=== PATIENT | female | born 1945 | race Caucasian/White ===

== ENCOUNTER → 2019-07-02 07:57 | Outpatient (BNVA) | payer MEDICARE, SELFPAY | PROVIDERS: Family Provider Electrodiagnostic Medicine; PCP Electrodiagnostic Medicine; Referring Provider Psychiatry & Neurology Neurology; Visit Provider Specialist | DX: R55 Syncope and collapse (principal); R25.1 Tremor, unspecified | CPT/HCPCS: 95816 ==

== ENCOUNTER → 2019-08-12 15:13 | Outpatient (BNVA) | payer MEDICARE, SELFPAY | PROVIDERS: Family Provider Electrodiagnostic Medicine; PCP Electrodiagnostic Medicine; Visit Provider Nurse Practitioner Family | DX: N30.80 Other cystitis without hematuria (principal) | CPT/HCPCS: 81001; 87077; 87086; 87186 ==

== ENCOUNTER 2019-12-02 13:27 | Outpatient (CLI) | payer MEDICARE, SELFPAY ==
--- NOTE | 2019-12-02 13:32 | USCV_ITS ---
Vania Price Age: 74 Gender: F : 1945 Exam Date: 12/02/2019 13:36 Ordering Phys: Luis Molina MD Technologist: Marcelo Ho [place]am [place] [facility] [place]ication: SYNCOPE AND COLLAPSE Risk Factors: Previous Vascular Surgery: Right Brachial BP: / Left Brachial BP: / Right Left Velocity (cm/s) Spectral Plaque Velocity (cm/s) Spectral Plaque Syst/Diast Broadening Syst/Diast Broadening 82.20/ 15.80 Prox CCA 88.60 / 17.00 112.80/15.40 Mid CCA 73.50 / 14.50 97.40/ 17.10 Distal CCA 88.80 / 19.40 / Prox ICA 57.30 / 18.70 106.50/26.40 Mid ICA 97.50 / 27.70 84.30/ 25.40 Distal ICA 136.20/ 45.00 115.40 ECA 118.50 0.94 ICA/CCA 1.33 Antegrade Vertebral Antegrade 67.00/ 10.20 cm/s 63.90/ 22.50 cm/s Tri Subclavian Tri 90.90 FINDINGS Comparison: none available. Diffuse, mild bilateral scattered calcified plaque and intimal thickening throughout the common carotid arteries and extending through the bifurcation. Tortuous arteries with mild stenosis. CONCLUSIONS Bilateral ICA stenosis less than 50%. Dr. Rosalina Carmichael DO (Electronically Signed) Final Date: 02 December 2019 16:20 S
== END 2019-12-02 13:28 | disposition home or self-care (01) ==
LOC: RAD 13:28
PROVIDERS: Family Provider Electrodiagnostic Medicine; PCP Electrodiagnostic Medicine; Visit Provider Psychiatry & Neurology Neurology
DX: R55 Syncope and collapse (principal); I65.23 Occlusion and stenosis of bilateral carotid arteries
CPT/HCPCS: 93880

== ENCOUNTER 2020-03-06 09:01 | Outpatient (CLI) | payer MEDICARE, SELFPAY ==
--- NOTE | 2020-03-06 09:23 | MR_ITS ---
WS: [id number] MRI LEFT FOOT without CONTRAST. COMPARISON: None Multiplanar, multisequence imaging is performed without contrast. Marker is placed over the dorsal surface of the foot at the level of the second metatarsophalangeal j oint. There is no marrow edema or fracture. Very minimal soft tissue thickening between the second an d third and also the third and fourth metatarsal heads. This is predominantly low signal on the T2 wi th fat saturation sequences. The largest between the second and third metatarsal heads is 3.5 mm. Charlene picious but not diagnostic for Ramesh's neuroma. There is an ovoid fluid collection in the soft tissues along the plantar surface of the foot measurin g 10 mm. This is at the level of the mid tarsal bones and just posterior to the flexor digitorum long us tendon. Suspect is probably a small ganglion. The Achilles tendon is normal. No additional signal abnormalities within the tendons. MR/MR foot LT wo con* [id number] IMPRESSION: 1. Small intermetatarsal space nodules between the second and third and third and fourth metatarsals. Suspicious but not diagnostic for Ramesh's neuromas. No inflammatory changes. 2. Ovoid cystic mass along the plantar surface of the foot just posterior and inseparable from the flexor digitorum longus tendon at the level of the mid tar sals. Favor small ganglion versus benign cyst.
== END 2020-03-06 09:02 | disposition home or self-care (01) ==
PROVIDERS: Family Provider Electrodiagnostic Medicine; PCP Electrodiagnostic Medicine; Visit Provider Podiatrist Foot & Ankle Surgery
DX: M79.675 Pain in left toe(s) (principal)
CPT/HCPCS: 73718

== ENCOUNTER 2020-03-08 07:03 | Emergency (ER) | payer MEDICARE, SELFPAY ==
[2020-03-08 07:06] VITALS: BP 100/54; PULSE 70; RESP 14; TEMP 36.6; O2SAT 95; BMI 30.9
--- NOTE | 2020-03-08 07:25 | W.ED.GENADLT ---
Documented by User: Daisy Maciel MD 03/08/20 16:41 HPI - General Adult History of Present Illness: HPI narrative: This patient is a 74-year-old female who presents today with complaints of tremors which caused her to fall. She tells me that she started having these tremors about 2 years ago. They were initially infrequent and controllable but in the past several weeks they have become significantly worse. In the past several days it is gotten to the point where she really cannot function because of the tremors and has fallen several times. She is only able to ambulate with significant help. She has been seeing her primary care physician, Dr. Chris and has also seen Dr. Molina, a neurologist in [place] affiliated with [facility]. She has only seen Dr. Molina once and then was not able to have a follow-up due to the COVID situation. She did have a phone visit a few days ago when he started her on propranolol which she does not feel like has helped at all. Previously she has been on carbidopa levodopa for some time. She says that Dr. Molina told her she did not have Parkinson's. She notes that her father did have Parkinson's. She has never had a stroke. 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 She has had a CT of her head, and MRI, and EEG. She feels like she is gotten to the point where she can no longer live at home because of her frequent falls and need for constant assistance. Onset (ago): year(s) (2 years, has become uncontrollable in the past few days.) Associated symptoms: Reports other (Some memory loss); Deny chest pain, dyspnea, headache(s), malaise, nausea, rash or vomiting Review of Systems General: Reports: 10 or more systems reviewed and unremarkable except in HPI and below Const: Denies: fever(s), chills, fatigue or malaise Eyes: Denies: change in vision ENMT: Denies: odynophagia Card: Denies: chest pain or swelling of feet/ankles Resp: Denies: dyspnea, productive cough or non-productive cough GI: Denies: abdominal pain, nausea or vomiting : Reports: dysuria (Chronic UTIs, currently on antibiotic); Denies: flank pain or difficulty voiding Musc: Denies: neck pain or back pain Skin/Breast: Denies: rash Neuro: Reports: numbness in extremities (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), lack of coordination, difficulty walking, frequent falls and involuntary movements; Denies: headache(s) or weakness in extremities Jp/Lymph: Denies: easy bruising or easy bleeding PFSH ED PFSH: Medical History Acid reflux Cystitis cystica High cholesterol Hypertension Neuropathy Restless leg syndrome Surgical History History of carpal tunnel surgery History of hysterectomy History of knee surgery Family History Sister Cancer Mother Diabetes Stroke Other Hypertension Social History Smoking and tobacco status: former smoker Alcohol intake: current Alcohol intake frequency: holidays/special occasions only Alcohol type: wine Household members: spouse Marital status: Current occupational status: retired Physical Exam Const: COMMON NORMALS: no acute distress, patient oriented x3, no limitations and alert GENERAL APPEARANCE: cooperative and comfortable HENMT: HEAD & SCALP: normal to inspection FACE & SINUS: normal facial exam Eye: GENERAL EYE: appearance normal, both eyes and all related structures Neck/C-Spine: COMMON NORMALS: supple, no meningeal signs and no JVD Chest: COMMONS NORMALS: normal inspection of the chest Resp: COMMON NORMALS: normal respiratory effort, No use of accessory muscles and clear to auscultation bilaterally AUSCULTATION: clear to auscultation bilaterally Cardio: COMMON NORMALS: no JVD, regular rate and regular rhythm RATE: regular rate RHYTHM: regular rhythm HEART SOUNDS: Murmur heart sound present GI: COMMON NORMALS: Normal to inspection, nondistended, normoactive bowel sounds present, Soft to palpation and non-tender INSPECTION: Yes normal to inspection AUSCULTATION: Yes normoactive bowel sounds PALPATION: Yes Soft to palpation Back/Pelvis: COMMON NORMALS: thoracic and lumbar spine normal to inspection Extremity: COMMON NORMALS: normal to inspection Neuro: COMMON NORMALS: patient oriented x3, moves all extremities, no focal motor deficits and no sensory deficits noted SENSORIUM/ORIENTATION: Yes alert MENINGEAL SIGNS: Yes no meningeal signs COORDINATION/BALANCE: other (I did not test her ambulation. Her sister showed me a video of her walking at home demonstrating the tremor throughout her whole body.) GAIT: Yes Assistive device used and Yes Other gait observations present (Intermittent chorea type movements of her trunk mainly which she is unable to control and last for less than about a minute each time.) COORDINATION: other (I did not test her ambulation. Her sister showed me a video of her walking at home demonstrating the tremor throughout her whole body.) Psych: COMMON NORMALS: mental status grossly normal, cooperative and normal affect Skin: COMMON NORMALS: no rashes or lesions noted and turgor normal GENERAL SKIN EXAM: no rashes or lesions noted and turgor normal Course ED course: The patient presents with tremors and frequent falls much worse in the past few days than typical. She is noted today to have renal failure - the cause of that is not clear. She is on a lot of medication and this could be a cause. Her work up for the tremors has been unrevealing and there has been a question of whether they are psychiatric in nature. Her neurologist is at [facility] and she would prefer to be admitted there so that she can be seen by him. She needs admission for management of her renal issues and her tremors are enough of an issue that she is not able to safely ambulate at home. Reevaluation(s): Reevaluation #1: This patient has been accepted to [facility] by Dr. Hedrick Vital Signs: Vital signs: Vital Signs Temperature 98 F 03/08/20 07:06 Pulse Rate 70 03/08/20 13:21 Respiratory Rate 14 03/08/20 13:21 Blood Pressure 142/85 03/08/20 13:21 Pulse Oximetry 97 03/08/20 13:21 [facility] - General Adult Lab Data: Labs: Lab Results 03/08/20 03/08/20 03/08/20 Range/Units 07:35 07:35 07:41 WBC (4.0-10.0) 10^3/ uL RBC (4.1-5.3) 10^6/u L Hgb (11.5-15.3) g/dL Hct (37.0-47.0) % MCV (81-99) fL MCH (28.0-34.0) pg MCHC (30.0-36.0) g/dL RDW (12.1-15.1) % Plt Count (130-400) 10^3/c mm MPV (7.4-10.4) fL Neut % (Auto) % Lymph % (Auto) % [place] % (Auto) % Eos % (Auto) % Baso % (Auto) % Neut # (Auto) (1.8-7.7) 10^3/u L Lymph # (Auto) (0.8-4.8) 10^3/u L [place] # (Auto) (0.2-0.9) 10^3/u L Eos # (Auto) (0.0-0.8) 10^3/u L Baso # (Auto) (0.0-0.1) 10^3/u L Nucleated RBC % (a uto) % Nucleated RBCs # /100WBC Sodium 141 (136-145) mmol/L Potassium 6.0 H (3.5-5.1) mmol/L Chloride 107 (98-107) mmol/L Carbon Dioxide 21 L (22-29) mmol/L Anion Gap 19.0 (5-19) BUN 72 H (8-23) mg/dL Creatinine 3.3 H (0.5-0.9) mg/dL GFR Calculation Not Reportable Glucose 100 (65-115) mg/dL Calculated Osmolal ity 292 (285-295) mOsm/k g Calcium 9.6 (8.5-10.5) mg/dL Total Bilirubin 0.2 (0.15-1.2) mg/dL AST 16 (0-32) U/L ALT < 5 (0-33) U/L Alkaline Phosphata se 93 (35-105) IU/L Creatine Kinase 81 (26-192) U/L Total Protein 6.3 L (6.6-8.7) g/dL Albumin 4.4 (3.5-5.2) g/dL Globulin 1.9 (1.3-4.6) g/dL TSH 2.05 (0.27-4.20) uIU/ mL Urine Color Yellow (Yellow) Urine Appearance Clear (CLEAR) Urine pH 5 (5-7) Ur Specific Gravit y 1.015 (1.005-1.030) Urine Protein Neg (Negative) Urine Glucose (UA) Norm (Normal) Urine Ketones Negative (Negative) Urine Blood Neg (Negative) Urine Nitrate Negative (Negative) Urine Bilirubin Neg (Negative) Urine Urobilinogen Norm (Negative) mg/dL Ur Leukocyte Lidya ase Negative (Negative) 03/08/20 Range/Units 09:47 WBC 8.8 (4.0-10.0) 10^3/ uL RBC 3.33 L (4.1-5.3) 10^6/u L Hgb 9.3 L (11.5-15.3) g/dL Hct 31.1 L (37.0-47.0) % MCV 93.4 (81-99) fL MCH 27.9 L (28.0-34.0) pg MCHC 29.9 L (30.0-36.0) g/dL RDW 18.2 H (12.1-15.1) % Plt Count 136 (130-400) 10^3/c mm MPV 11.4 H (7.4-10.4) fL Neut % (Auto) 62.8 % Lymph % (Auto) 24.3 % [place] % (Auto) 7.2 % Eos % (Auto) 4.6 % Baso % (Auto) 0.6 % Neut # (Auto) 5.52 (1.8-7.7) 10^3/u L Lymph # (Auto) 2.1 (0.8-4.8) 10^3/u L [place] # (Auto) 0.6 (0.2-0.9) 10^3/u L Eos # (Auto) 0.4 (0.0-0.8) 10^3/u L Baso # (Auto) 0.1 (0.0-0.1) 10^3/u L Nucleated RBC % (a uto) 0 % Nucleated RBCs # 0.0 /100WBC Sodium (136-145) mmol/L Potassium (3.5-5.1) mmol/L Chloride (98-107) mmol/L Carbon Dioxide (22-29) mmol/L Anion Gap (5-19) BUN (8-23) mg/dL Creatinine (0.5-0.9) mg/dL GFR Calculation Glucose (65-115) mg/dL Calculated Osmolal ity (285-295) mOsm/k g Calcium (8.5-10.5) mg/dL Total Bilirubin (0.15-1.2) mg/dL AST (0-32) U/L ALT (0-33) U/L Alkaline Phosphata se (35-105) IU/L Creatine Kinase (26-192) U/L Total Protein (6.6-8.7) g/dL Albumin (3.5-5.2) g/dL Globulin (1.3-4.6) g/dL TSH (0.27-4.20) uIU/ mL Urine Color (Yellow) Urine Appearance (CLEAR) Urine pH (5-7) Ur Specific Gravit y (1.005-1.030) Urine Protein (Negative) Urine Glucose (UA) (Normal) Urine Ketones (Negative) Urine Blood (Negative) Urine Nitrate (Negative) Urine Bilirubin (Negative) Urine Urobilinogen (Negative) mg/dL Ur Leukocyte Lidya ase (Negative) Discharge Plan Discharge Prescriptions: No Action doxazosin 4 mg tablet 4 mg PO DAILY RF: 0 cefuroxime axetil 500 mg tablet 500 mg PO BID Qty: 14 RF: 2 amlodipine 10 mg tablet 10 mg PO DAILY RF: 0 latanoprost 0.005 % drops See Rx Instructions .ROUTE .COMPLEX RF: 0 hydralazine 50 mg tablet 50 mg PO TID RF: 0 furosemide 40 mg tablet 40 mg PO BID RF: 0 atorvastatin 40 mg tablet 40 mg PO DAILY RF: 0 esomeprazole magnesium 40 mg capsule,delayed release(DR/EC) 40 mg PO DAILY RF: 0 carbidopa-levodopa 25-100 mg tablet 1 tab PO TID RF: 0 pregabalin 75 mg capsule 75 mg PO TID RF: 0 timolol maleate 0.25 % gel forming solution See Rx Instructions .ROUTE .COMPLEX RF: 0 allopurinol 300 mg tablet 150 mg PO DAILY RF: 0 methenamine hippurate 1 gram tablet 1 gm PO BID Qty: 180 RF: 3 tramadol 50 mg tablet 50 mg PO Q4H PRN (Reason: pain) Qty: 42 RF: 0 Vitamin B-12 1,000 mcg Tablet Extended Release 1,000 mcg PO DAILY RF: 0 Aspirin Low Dose 81 mg Tablet,Delayed Release (Dr/Ec) 81 mg PO DAILY RF: 0 Tylenol Extra Strength 500 mg Tablet 500 mg PO Q6H PRN (Reason: Pain) RF: 0 vitamin N78-eyamd acid 1,000-400 mcg Lozenge 1 edvin SUBLINGUAL DAILY RF: 0 Discharge Date/Time: 03/08/20 13:22 Coding Level of Care Code ED Finished Garment Inspector for Chg Fwd Exam Comprehensive Documented by User: Tamie Brumfield 04/15/20 05:51 HPI - General Adult History of Present Illness: Associated symptoms: Deny chest pain, dyspnea, headache(s), malaise, nausea, rash or vomiting Review of Systems General: Reports: 10 or more systems reviewed and unremarkable except in HPI and below Const: Denies: fever(s), chills, fatigue or malaise Eyes: Denies: change in vision ENMT: Denies: odynophagia Card: Denies: chest pain or swelling of feet/ankles Resp: Denies: dyspnea, productive cough or non-productive cough GI: Denies: abdominal pain, nausea or vomiting : Reports: dysuria (Chronic UTIs, currently on antibiotic); Denies: flank pain or difficulty voiding Musc: Denies: neck pain or back pain Skin/Breast: Denies: rash Neuro: Reports: numbness in extremities (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), lack of coordination, difficulty walking, frequent falls and involuntary movements; Denies: headache(s) or weakness in extremities Jp/Lymph: Denies: easy bruising or easy bleeding PFSH ED PFSH: Medical History Acid reflux Cystitis cystica High cholesterol Hypertension Neuropathy Restless leg syndrome Surgical History History of carpal tunnel surgery History of hysterectomy History of knee surgery Family History Sister Cancer Mother Diabetes Stroke Other Hypertension Social History Smoking and tobacco status: former smoker Alcohol intake: current Alcohol intake frequency: holidays/special occasions only Alcohol type: wine Household members: spouse Marital status: Current occupational status: retired Course Vital Signs: Vital signs: Vital Signs Temperature 98 F 03/08/20 07:06 Pulse Rate 70 03/08/20 13:21 Respiratory Rate 14 03/08/20 13:21 Blood Pressure 142/85 03/08/20 13:21 Pulse Oximetry 97 03/08/20 13:21 [facility] - General Adult Lab Data: Labs: Lab Results 03/08/20 03/08/20 03/08/20 Range/Units 07:35 07:35 07:41 WBC (4.0-10.0) 10^3/ uL RBC (4.1-5.3) 10^6/u L Hgb (11.5-15.3) g/dL Hct (37.0-47.0) % MCV (81-99) fL MCH (28.0-34.0) pg MCHC (30.0-36.0) g/dL RDW (12.1-15.1) % Plt Count (130-400) 10^3/c mm MPV (7.4-10.4) fL Neut % (Auto) % Lymph % (Auto) % [place] % (Auto) % Eos % (Auto) % Baso % (Auto) % Neut # (Auto) (1.8-7.7) 10^3/u L Lymph # (Auto) (0.8-4.8) 10^3/u L [place] # (Auto) (0.2-0.9) 10^3/u L Eos # (Auto) (0.0-0.8) 10^3/u L Baso # (Auto) (0.0-0.1) 10^3/u L Nucleated RBC % (a uto) % Nucleated RBCs # /100WBC Sodium 141 (136-145) mmol/L Potassium 6.0 H (3.5-5.1) mmol/L Chloride 107 (98-107) mmol/L Carbon Dioxide 21 L (22-29) mmol/L Anion Gap 19.0 (5-19) BUN 72 H (8-23) mg/dL Creatinine 3.3 H (0.5-0.9) mg/dL GFR Calculation Not Reportable Glucose 100 (65-115) mg/dL Calculated Osmolal ity 292 (285-295) mOsm/k g Calcium 9.6 (8.5-10.5) mg/dL Total Bilirubin 0.2 (0.15-1.2) mg/dL AST 16 (0-32) U/L ALT < 5 (0-33) U/L Alkaline Phosphata se 93 (35-105) IU/L Creatine Kinase 81 (26-192) U/L Total Protein 6.3 L (6.6-8.7) g/dL Albumin 4.4 (3.5-5.2) g/dL Globulin 1.9 (1.3-4.6) g/dL TSH 2.05 (0.27-4.20) uIU/ mL Urine Color Yellow (Yellow) Urine Appearance Clear (CLEAR) Urine pH 5 (5-7) Ur Specific Gravit y 1.015 (1.005-1.030) Urine Protein Neg (Negative) Urine Glucose (UA) Norm (Normal) Urine Ketones Negative (Negative) Urine Blood Neg (Negative) Urine Nitrate Negative (Negative) Urine Bilirubin Neg (Negative) Urine Urobilinogen Norm (Negative) mg/dL Ur Leukocyte Lidya ase Negative (Negative) 03/08/20 Range/Units 09:47 WBC 8.8 (4.0-10.0) 10^3/ uL RBC 3.33 L (4.1-5.3) 10^6/u L Hgb 9.3 L (11.5-15.3) g/dL Hct 31.1 L (37.0-47.0) % MCV 93.4 (81-99) fL MCH 27.9 L (28.0-34.0) pg MCHC 29.9 L (30.0-36.0) g/dL RDW 18.2 H (12.1-15.1) % Plt Count 136 (130-400) 10^3/c mm MPV 11.4 H (7.4-10.4) fL Neut % (Auto) 62.8 % Lymph % (Auto) 24.3 % [place] % (Auto) 7.2 % Eos % (Auto) 4.6 % Baso % (Auto) 0.6 % Neut # (Auto) 5.52 (1.8-7.7) 10^3/u L Lymph # (Auto) 2.1 (0.8-4.8) 10^3/u L [place] # (Auto) 0.6 (0.2-0.9) 10^3/u L Eos # (Auto) 0.4 (0.0-0.8) 10^3/u L Baso # (Auto) 0.1 (0.0-0.1) 10^3/u L Nucleated RBC % (a uto) 0 % Nucleated RBCs # 0.0 /100WBC Sodium (136-145) mmol/L Potassium (3.5-5.1) mmol/L Chloride (98-107) mmol/L Carbon Dioxide (22-29) mmol/L Anion Gap (5-19) BUN (8-23) mg/dL Creatinine (0.5-0.9) mg/dL GFR Calculation Glucose (65-115) mg/dL Calculated Osmolal ity (285-295) mOsm/k g Calcium (8.5-10.5) mg/dL Total Bilirubin (0.15-1.2) mg/dL AST (0-32) U/L ALT (0-33) U/L Alkaline Phosphata se (35-105) IU/L Creatine Kinase (26-192) U/L Total Protein (6.6-8.7) g/dL Albumin (3.5-5.2) g/dL Globulin (1.3-4.6) g/dL TSH (0.27-4.20) uIU/ mL Urine Color (Yellow) Urine Appearance (CLEAR) Urine pH (5-7) Ur Specific Gravit y (1.005-1.030) Urine Protein (Negative) Urine Glucose (UA) (Normal) Urine Ketones (Negative) Urine Blood (Negative) Urine Nitrate (Negative) Urine Bilirubin (Negative) Urine Urobilinogen (Negative) mg/dL Ur Leukocyte Lidya ase (Negative) Discharge Plan Discharge Prescriptions: No Action doxazosin 4 mg tablet 4 mg PO DAILY RF: 0 cefuroxime axetil 500 mg tablet 500 mg PO BID Qty: 14 RF: 2 amlodipine 10 mg tablet 10 mg PO DAILY RF: 0 latanoprost 0.005 % drops See Rx Instructions .ROUTE .COMPLEX RF: 0 hydralazine 50 mg tablet 50 mg PO TID RF: 0 furosemide 40 mg tablet 40 mg PO BID RF: 0 atorvastatin 40 mg tablet 40 mg PO DAILY RF: 0 esomeprazole magnesium 40 mg capsule,delayed release(DR/EC) 40 mg PO DAILY RF: 0 carbidopa-levodopa 25-100 mg tablet 1 tab PO TID RF: 0 pregabalin 75 mg capsule 75 mg PO TID RF: 0 timolol maleate 0.25 % gel forming solution See Rx Instructions .ROUTE .COMPLEX RF: 0 allopurinol 300 mg tablet 150 mg PO DAILY RF: 0 methenamine hippurate 1 gram tablet 1 gm PO BID Qty: 180 RF: 3 tramadol 50 mg tablet 50 mg PO Q4H PRN (Reason: pain) Qty: 42 RF: 0 Vitamin B-12 1,000 mcg Tablet Extended Release 1,000 mcg PO DAILY RF: 0 Aspirin Low Dose 81 mg Tablet,Delayed Release (Dr/Ec) 81 mg PO DAILY RF: 0 Tylenol Extra Strength 500 mg Tablet 500 mg PO Q6H PRN (Reason: Pain) RF: 0 vitamin U65-caumw acid 1,000-400 mcg Lozenge 1 edvin SUBLINGUAL DAILY RF: 0 Discharge Date/Time: 03/08/20 13:22 Coding Level of Care Code ED Finished Garment Inspector for Shanika Fwd Exam Comprehensive
[2020-03-08 07:30] VITALS: BP 107/52; PULSE 58; RESP 14; O2SAT 91
[2020-03-08 08:15] LABS: Add Urine Microscopic? NO
[2020-03-08 08:29] LABS: Bilirubin Urine Neg (Negative); Blood Urine Neg (Negative); Glucose Urine UA Norm (Normal); Ketones Urine Negative (Negative); Leukocyte Esterase Urine Negative (Negative); Nitrate Urine Negative (Negative); Protein Urine Neg (Negative); Specific Gravity, Urine 1.015 (1.005-1.030); Urine Appearance Clear (CLEAR); Urine Color Yellow (Yellow); Urobilinogen Urine Norm (Negative); pH Urine 5 (5-7)
[2020-03-08 08:30] VITALS: BP 110/44; PULSE 54; RESP 14; O2SAT 94
[2020-03-08 08:34] LABS: Alanine Aminotransferase < 5 U/L (0-33); Albumin Level 4.4 g/dL (3.5-5.2); Alkaline Phosphatase 93 IU/L (35-105); Aspartate Amino Transferase 16 U/L (0-32); Blood Urea Nitrogen 72 mg/dL (8-23); Calcium 9.6 mg/dL (8.5-10.5); Carbon Dioxide 21 mmol/L (22-29); Chloride 107 mmol/L (98-107); Creatine Phosphokinase 81 U/L (26-192); Globulin 1.9 g/dL (1.3-4.6); Glucose 100 mg/dL (65-115); Osmolality Calculated 292 mOsm/kg (285-295); Sodium 141 mmol/L (136-145); Total Bilirubin 0.2 mg/dL (0.15-1.2); Total Protein 6.3 g/dL (6.6-8.7)
[2020-03-08] MEDS: sodium chloride 0.9% 1,000 ML 999 ML IV (08:54)
[2020-03-08 09:30] VITALS: BP 112/45; PULSE 56; RESP 14; O2SAT 92
[2020-03-08 10:01] LABS: Basophils # 0.1 10^3/uL (0.0-0.1); Basophils % 0.6 %; Eosinophils # 0.4 10^3/uL (0.0-0.8); Eosinophils % 4.6 %; Hematocrit 31.1 % (37.0-47.0); Hemoglobin 9.3 g/dL (11.5-15.3); Lymphocytes # 2.1 10^3/uL (0.8-4.8); Lymphocytes % 24.3 %; Mean Corpuscular HGB Conc 29.9 g/dL (30.0-36.0); Mean Corpuscular Hemoglobin 27.9 pg (28.0-34.0); Mean Corpuscular Volume 93.4 fL (81-99); Mean Platelet Volume 11.4 fL (7.4-10.4); Monocytes # 0.6 10^3/uL (0.2-0.9); Monocytes % 7.2 %; Neutrophils # 5.52 10^3/uL (1.8-7.7); Neutrophils % 62.8 %; Nucleated Red Blood Cells % 0 %; Platelet Count 136 10^3/cmm (130-400); Red Blood Count 3.33 10^6/uL (4.1-5.3); Red Cell Distribution Width 18.2 % (12.1-15.1); White Blood Count 8.8 10^3/uL (4.0-10.0)
[2020-03-08 10:30] VITALS: BP 104/49; PULSE 56; RESP 14; O2SAT 92
[2020-03-08 10:37] LABS: Thyroid Stimulating Hormone 2.05 uIU/mL (0.27-4.20)
--- NOTE | 2020-03-08 11:33 | ECG_ITS ---
[facility] Test Date: 2020-03-08 Pat Name: Vania Price Department: Room: Gender: Female Public Health Engineer: : 1945 Requested By: Daisy Joseph Order Number: [id number] Kinjal MD: Joyce Chauhan M.D. Measurements Intervals Wann Rate: 55 P: 60 OK: 224 QRS: -24 QRSD: 100 T: 66 QT: 438 QTc: 421 Interpretive Statements SINUS BRADYCARDIA WITH FIRST DEGREE AV BLOCK BORDERLINE LEFT AXIS DEVIATION [QRS AXIS < -20] LOW QRS VOLTAGE IN PRECORDIAL LEADS [QRS DEFLECTION < 1.0 mV IN CHEST LEADS] Compared to ECG 09/20/2018 18:23:32 Low QRS voltage now present Electronically Signed On 03-08-2020 15:17:48 CDT by Joyce Chauhan M.D. [email or web address]
[2020-03-08] MEDS: sodium chloride 0.45% 1,000 ML 125 ML IV (12:24)
[2020-03-08 13:21] VITALS: BP 142/85; PULSE 70; RESP 14; O2SAT 97
== END 2020-03-08 13:22 ==
LOC: ER 07:27
PROVIDERS: Emergency Provider Emergency Medicine; PCP Electrodiagnostic Medicine
DX: R53.1 Weakness (principal); Z79.82 Long term (current) use of aspirin; I10 Essential (primary) hypertension; Z87.891 Personal history of nicotine dependence
CPT/HCPCS: 12345; 80053; 81003; 82550; 84443; 85025; 93005; 96360; 96361; 99283; J7030

== ENCOUNTER → 2020-04-07 14:18 | Outpatient (BNVA) | payer MEDICARE, SELFPAY | PROVIDERS: PCP Electrodiagnostic Medicine; Visit Provider Urology | DX: N30.80 Other cystitis without hematuria (principal) | CPT/HCPCS: 81001 ==

== ENCOUNTER 2020-07-17 11:25 | Outpatient (RCR) | payer MEDICARE, SELFPAY | END 2020-07-26 23:59 | disposition home or self-care (01) | LOC: SPT 11:25 | PROVIDERS: PCP Electrodiagnostic Medicine; Referring Provider Electrodiagnostic Medicine; Visit Provider Electrodiagnostic Medicine | DX: R42 Dizziness and giddiness (principal) | CPT/HCPCS: 95992; 97162 ==

== ENCOUNTER → 2020-07-28 10:17 | Outpatient (BNVA) | payer MEDICARE, SELFPAY | PROVIDERS: PCP Electrodiagnostic Medicine; Visit Provider Urology | DX: N30.80 Other cystitis without hematuria (principal); M54.9 Dorsalgia, unspecified | CPT/HCPCS: 81003 ==

== ENCOUNTER 2020-08-24 10:00 | Outpatient (CLI) | payer MEDICARE, SELFPAY | END 2020-08-24 10:01 | disposition home or self-care (01) | LOC: RAD 02-22 11:50 | PROVIDERS: PCP Electrodiagnostic Medicine; Visit Provider Podiatrist Foot & Ankle Surgery | DX: G57.62 Lesion of plantar nerve, left lower limb (principal); M19.072 Primary osteoarthritis, left ankle and foot | CPT/HCPCS: 73630 ==

== ENCOUNTER 2020-09-25 11:19 | Outpatient (CLI) | payer MEDICARE, SELFPAY ==
[2020-09-25 11:58] LABS: Basophils # 0.1 10^3/uL (0.0-0.1); Basophils % 0.6 %; Eosinophils # 0.2 10^3/uL (0.0-0.8); Eosinophils % 1.8 %; Hemoglobin 12.2 g/dL (11.5-15.3); Lymphocytes # 3.3 10^3/uL (0.8-4.8); Lymphocytes % 36.5 %; Mean Corpuscular HGB Conc 30.5 g/dL (30.0-36.0); Mean Corpuscular Hemoglobin 27.2 pg (28.0-34.0); Mean Corpuscular Volume 89.1 fL (81-99); Mean Platelet Volume 10.5 fL (7.4-10.4); Monocytes # 0.3 10^3/uL (0.2-0.9); Monocytes % 3.8 %; Neutrophils # 5.18 10^3/uL (1.8-7.7); Neutrophils % 57.1 %; Nucleated Red Blood Cells % 0 %; Platelet Count 238 10^3/cmm (130-400); Red Blood Count 4.49 10^6/uL (4.1-5.3); Red Cell Distribution Width 18.6 % (12.1-15.1); White Blood Count 9.1 10^3/uL (4.0-10.0)
[2020-09-25 12:19] LABS: Anion Gap 16.2 (5-19); Blood Urea Nitrogen 20 mg/dL (8-23); Calcium 9.6 mg/dL (8.5-10.5); Carbon Dioxide 28 mmol/L (22-29); Chloride 100 mmol/L (98-107); Creatine Phosphokinase 63 U/L (26-192); Glucose 159 mg/dL (65-115); Osmolality Calculated 298 mOsm/kg (285-295); Potassium 3.2 mmol/L (3.5-5.1); Sodium 141 mmol/L (136-145)
[2020-09-25 12:40] LABS: Erythrocyte Sedimentation Rate 21 mm/hr (0-15)
[2020-09-28 12:18] LABS: COMPLEMENT COMPONENT C3C 162 mg/dL (83-193); COMPLEMENT COMPONENT C4C 36 mg/dL (15-57)
[2020-09-28 15:28] LABS: COMPLEMENT, TOTAL (CH50) >60 U/mL (31-60)
[2020-09-28 16:32] LABS: CENTROMERE B ANTIBODY <1.0 NEG AI (<1.0 NEG); JO-1 ANTIBODY <1.0 NEG AI (<1.0 NEG); RNP ANTIBODY <1.0 NEG AI (<1.0 NEG); SCL-70 ANTIBODY <1.0 NEG AI (<1.0 NEG); SJOGREN'S ANTIBODY (SS-A) <1.0 NEG AI (<1.0 NEG); SM ANTIBODY <1.0 NEG AI (<1.0 NEG); SS-B <1.0 NEG AI (<1.0 NEG)
[2020-09-29 11:12] LABS: ANA PATTERN Nuclear, Homogeneous; ANA SCREEN, IFA POSITIVE (NEGATIVE)
[2020-09-29 14:22] LABS: THYROID PEROXIDASE ANTIBODIES <1 IU/mL (<9)
[2020-09-29 19:07] LABS: HLA-B27 NEGATIVE (NEGATIVE)
[2020-10-03 00:18] LABS: DNA AB (DS) CRITHIDIA,IFA NEGATIVE (NEGATIVE)
== END 2020-09-25 11:20 | disposition home or self-care (01) ==
PROVIDERS: PCP Electrodiagnostic Medicine; Visit Provider Podiatrist Foot & Ankle Surgery
DX: M12.9 Arthropathy, unspecified (principal); M13.80 Other specified arthritis, unspecified site; M79.672 Pain in left foot; Q78.8 Other specified osteochondrodysplasias; Z82.61 Family history of arthritis
CPT/HCPCS: 36415; 80048; 82550; 85025; 85651; 86160; 86162; 86235; 86255; 86376; 86431; 86812

== ENCOUNTER → 2020-11-17 09:49 | Outpatient (BNVA) | payer MEDICARE, SELFPAY | PROVIDERS: PCP Electrodiagnostic Medicine; Visit Provider Internal Medicine Rheumatology | DX: G57.62 Lesion of plantar nerve, left lower limb (principal); M19.90 Unspecified osteoarthritis, unspecified site; Z79.899 Other long term (current) drug therapy; Z87.891 Personal history of nicotine dependence | CPT/HCPCS: 99204 ==

== ENCOUNTER 2020-11-17 11:16 | Outpatient (CLI) | payer MEDICARE, SELFPAY ==
--- NOTE | 2020-11-17 11:26 | XR_ITS ---
WS: [id number] Exam: XR hand RT min 3V* [id number] Date/Time of Exam: 11/17/2020 11:30 AM Reason For Exam: Z79.899 - Other land use planner (current) drug therapy No acute fracture or dislocation. There are degenerative changes of the IP and MP joints. Moderately advanced degenerative change in the DIP joint of the fifth finger. Several small subcortical cysts ar e noted in the digits. No soft tissue foreign bodies. XR/XR hand RT min 3V* [id number] IMPRESSION: 1. Degenerative changes as noted above. 2. No fracture.
--- NOTE | 2020-11-17 11:26 | XR_ITS ---
WS: [id number] Exam: XR hand LT min 3V* [id number] Date/Time of Exam: 11/17/2020 11:30 AM Reason For Exam: Z79.899 - Other exterminator (current) drug therapy No fracture or dislocation. Moderate degenerative changes in the IP and MP joints. No soft tissue for eign bodies are identified. XR/XR hand LT min 3V* [id number] IMPRESSION: 1. Moderate degenerative changes. 2. No fracture or dislocation.
--- NOTE | 2020-11-17 11:26 | XR_ITS ---
WS: [id number] Exam: XR foot RT min 3V* [id number] Date/Time of Exam: 11/17/2020 11:30 AM Reason For Exam: Z79.899 - Other care home (current) drug therapy No acute fracture or dislocation noted. Advanced degenerative change at the MP joint of the great toe . Prominent marginal osteophyte projects from the base of the proximal phalanx of the great toe along the lateral margin. No soft tissue foreign bodies are seen. XR/XR foot RT min 3V* [id number] IMPRESSION: 1. No fracture or dislocation. 2. Moderately advanced degenerative changes at the first MP joint.
--- NOTE | 2020-11-17 11:26 | XR_ITS ---
WS: [id number] Exam: XR thoracic spine 3V* [id number] Date/Time of Exam: 11/17/2020 11:30 AM Reason For Exam: Z79.899 - Other custodial (current) drug therapy No acute fracture or dislocation. There is spondylosis and degenerative disc changes at all levels. P araspinal soft tissues appear normal. XR/XR thoracic spine 3V* [id number] IMPRESSION: 1. Degenerative changes. No fracture or dislocation.
--- NOTE | 2020-11-17 11:26 | XR_ITS ---
WS: [id number] Exam: XR lumbar spine 2-3V* [id number] Date/Time of Exam: 11/17/2020 11:30 AM Reason For Exam: Z79.899 - Other multilith operator (current) drug therapy Moderately advanced degenerative disc changes from L2 to S1. Mild spondylosis. No fracture or disloca tion. 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 DJD of the SI joints. XR/XR lumbar spine 2-3V* [id number] IMPRESSION: 1. Moderately advanced degenerative changes as noted above. 2. No fracture or malalignment.
[2020-11-17 13:03] LABS: C Reactive Protein 5.2 mg/L (0.0-4.9); Uric Acid 3.3 mg/dL (2.4-5.7)
[2020-11-17 13:19] LABS: Erythrocyte Sedimentation Rate 22 mm/hr (0-15)
[2020-11-17 14:05] LABS: 25 Hydroxy Vitamin D 65 ng/mL (30-100)
[2020-11-18 15:23] LABS: Cyclic Citrullinated Peptide <16 UNITS
== END 2020-11-17 11:17 | disposition home or self-care (01) ==
PROVIDERS: PCP Electrodiagnostic Medicine; Visit Provider Internal Medicine Rheumatology
DX: M19.90 Unspecified osteoarthritis, unspecified site (principal); Z79.899 Other long term (current) drug therapy
CPT/HCPCS: 36415; 72072; 72100; 73130; 73630; 82306; 84550; 85651; 86140

== ENCOUNTER 2020-11-30 15:12 | Outpatient (CLI) | payer MEDICARE, SELFPAY ==
--- NOTE | 2020-11-30 15:15 | MM_ITS ---
WS: [id number] BILATERAL SCREENING DIGITAL MAMMOGRAM WITH CAD HISTORY: SCREENING COMPARISON: 09/18/2018 and 08/12/2015 Bilateral CC and MLO views submitted. Computer aided detection analyzed. Breast composition: The breasts are extremely dense, which lowers the sensitivity of mammography. No suspicious masses, microcalcifications or architectural distortion. Scattered calcifications and asym metries are stable. MM/[place] [id number] IMPRESSION: BI-RADS: 2-Benign FOLLOW UP: 1 Year Follow-up
== END 2020-11-30 15:13 | disposition home or self-care (01) ==
LOC: RADSHAW 15:14
PROVIDERS: PCP Electrodiagnostic Medicine; Visit Provider Electrodiagnostic Medicine
DX: Z12.31 Encounter for screening mammogram for malignant neoplasm of breast (principal)
CPT/HCPCS: 77067

== ENCOUNTER → 2020-12-16 15:01 | Outpatient (BNVA) | payer MEDICARE, SELFPAY | PROVIDERS: PCP Electrodiagnostic Medicine; Visit Provider Internal Medicine Rheumatology | DX: M15.9 Polyosteoarthritis, unspecified (principal); G57.62 Lesion of plantar nerve, left lower limb; M54.9 Dorsalgia, unspecified; Z87.891 Personal history of nicotine dependence | CPT/HCPCS: 99214 ==

== ENCOUNTER 2021-01-29 07:50 | Outpatient (CLI) | payer MEDICARE, SELFPAY ==
--- NOTE | 2021-01-29 08:06 | MR_ITS ---
WS: [id number] MRI THORACIC SPINE WITHOUT CONTRAST TECHNIQUE: Sagittal T1, T2 and STIR imaging. Axial T2 imaging. Noncontrast imaging obtained. CLINICAL INFORMATION: M54.9 - Dorsalgia, unspecified COMPARISON: None. FINDINGS: Endplate edema with T2 signal abnormality in the disc space at T11-T12. Small amount of ass ociated paravertebral edema. Findings may be degenerative however discitis is an additional considera tion. Recommend Correlation for infection. No evidence of epidural abscess or paravertebral abscess. No end plate destructive changes. Small amount of T2 signal abnormality T10-11 disc space. Mild thoracic curve. Mild thoracic kyphosis. Disc space narrowing throughout the thoracic spine. Tony gn hemangioma L1 vertebral body. Tiny disc protrusions mid thoracic spine more prominent at T10-11 an d T11-12. Mild central canal stenosis T11-12. Mild/moderate bony foraminal narrowing worse at right T 10-11 and bilateral T11-12 left greater than right. Moderate facet arthropathy lower thoracic spine. Normal caliber thoracic aorta. Adrenal glands are no rmal. Left renal cyst measuring 9 mm. MR/MR thoracic spin wo con* [id number] IMPRESSION: 1. Endplate edema with T2 signal abnormality in the disc space at T11-T12. Sma ll amount of associated paravertebral edema. Findings may be degenerative in na ture however early discitis is an additional consideration. Recommend correlati on for infection. No endplate erosive changes. This can be followed up with stewart olinium 2. Mild thoracic curve. Mild thoracic kyphosis. No acute compression fractures . 3. No high-grade central canal stenosis. Cord signal is normal. 4. Small disc protrusions T10-T11 and T11-T12 with mild central canal stenosis T11-T12. 5. Mild/moderate bony foraminal narrowing worse at right T10-11 and bilateral T11-12 left greater than right. 6. Moderate facet arthropathy lower thoracic spine.
--- NOTE | 2021-01-29 08:06 | MR_ITS ---
WS: [id number] MRI LUMBAR SPINE NONCONTRAST TECHNIQUE: Sagittal T1, T2 and STIR imaging. Axial T1 and T2 imaging. CLINICAL INFORMATION: M54.9 - Dorsalgia, unspecified COMPARISON: None. FINDINGS: Endplate edema with a small amount of signal in the disc space at T11-12. Associated paravertebral ed victor m. Correlation for discitis as described on the thoracic spine MRI. Small amount of signal in the disc s pace at T10 and T11. Mild lumbar curve. No acute compression. L1-L2: Normal. L2-L3: Slight anterolisthesis. Mild disc bulging with osteophytic ridging. Narrowing of the right gre ater than left subarticular recess. Mild facet arthropathy. Mild right greater than left foraminal na rrowing. Mild facet arthropathy. Mild central canal stenosis. L3-L4: Mild disc bulging with slight effacement of the ventral thecal sac. Mild to moderate central c anal stenosis and impingement traversing L4 nerve roots left greater than right. Small bilateral fora laverne protrusions with mild to moderate right and no significant left foraminal narrowing. Moderate f acet arthropathy. L4-L5: Mild disc bulging in combination with facet arthropathy and ligamentum flavum hypertrophy resu lts in moderate to severe central canal stenosis. Prominent dorsal epidural fat contributes to centra l canal narrowing. Small bilateral foraminal protrusions with mild to moderate right greater than lef t foraminal narrowing. L5-S1: Mild disc bulging and osteophytic ridging. Slight impingement traversing S1 nerve roots bilate rally. Moderate facet arthropathy ligamentum flavum hypertrophy. Spinal canal is patent. Moderate to severe left bony foraminal narrowing. Right foramen is patent. Incidental left renal cysts. T2 hyperintense indeterminate right renal lesion measuring 1.5 CM. This can be followed up with ultrasound or contrast-enhanced CT. Visualized pelvic bony structures: Normal. Paravertebral soft tissues: Normal. MR/MR lumbar spine wo con* [id number] IMPRESSION: 1. Mild lumbar curve. No acute compression. 2. Moderate to severe central canal stenosis L4-5 due to disc bulging with ost eophytic ridging in combination with facet arthropathy and ligamentum flavum hy pertrophy. In addition prominent dorsal epidural fat contributes to central can al narrowing. 3. Mild central canal stenosis L2-3 and mild to moderate L3-4. 4. Disc bulging with osteophytic ridging L5-S1 impinges the traversing left gr eater than right S1 nerve roots with moderate to severe left foraminal narrowin g. 5. Right foraminal protrusion L3-4 impinges the exiting right L3 nerve root. C orrelation for right L3 nerve root symptoms. 6. Mild/moderate bilateral L4-5 foraminal narrowing with small bilateral tara inal protrusions. 7. Moderate facet arthropathy L3-L4, L4-L5 and L5-S1. 8. Degenerative changes or discitis T11-12 paravertebral edema as described on the thoracic spine MRI. This could be further evaluated with gadolinium. 9. T2 hyperintense indeterminate right renal lesion measuring 1.5 CM. This can be followed up with ultrasound or contrast-enhanced CT.
== END 2021-01-29 07:51 | disposition home or self-care (01) ==
PROVIDERS: PCP Electrodiagnostic Medicine; Visit Provider Orthopaedic Surgery
DX: M47.814 Spondylosis without myelopathy or radiculopathy, thoracic region (principal); M51.24 Other intervertebral disc displacement, thoracic region; M40.294 Other kyphosis, thoracic region; M48.061 Spinal stenosis, lumbar region without neurogenic claudication; M25.78 Osteophyte, vertebrae
CPT/HCPCS: 72146; 72148

== ENCOUNTER 2022-01-17 10:43 | Emergency (ER) | payer MEDICARE, SELFPAY ==
[2022-01-17] VITALS (7 sets, daily range): BP systolic 146–169; BP diastolic 72–96; PULSE 84–103; RESP 16; TEMP 37.6; O2SAT 92–94; BMI 30.9
--- NOTE | 2022-01-17 11:11 | CT_ITS ---
WS: [id number] CT HEAD NONCONTRAST HISTORY: fall TECHNIQUE: Contiguous axial imaging performed through the brain in 2.5 mm imaging. Bone and soft tiss ue windows. Sagittal and coronal reformats reviewed. All CT scans at [facility] use at least one of these dose optimization techniques: automated exposure control; mA and/or kV adjustment per pa tient size (includes targeted exams where dose is matched to clinical indication); or iterative recon struction. DLP: 1136.08 mGy.cm COMPARISON: 05/07/2019 No acute intracranial hemorrhage, midline shift or mass effect. Mild atrophy and small vessel ischemic disease. Small lacunar infarcts in the internal capsules. No s olid mass or sulcal effacement. Ventricles: Normal size with no hydrocephalus. No inferior displacement of the cerebellar tonsils. Paranasal sinuses: As visualized are clear. Mastoid air cells: Well pneumatized. Calvarium and scalp: No skull fracture. There is a large soft tissue hematoma centered over the LEFT vertex. No underlying mass. CT/CT head wo con* [id number] IMPRESSION: 1. No acute intracranial hemorrhage. 2. Mild atrophy and small vessel ischemic disease. 3. No skull fracture. 4. Large soft tissue scalp hematoma centered over the LEFT vertex.
--- NOTE | 2022-01-17 13:07 | ED_ITS ---
HPI - General Adult General: Chief complaint: General Medical Stated complaint: Head injury due to fall & covid symptoms Time Seen by Provider: 01/17/22 13:07 Source: patient and family Mode of arrival: ambulatory Limitations: no limitations History of Present Illness: 68-year-old female presents emergency room after a fall at home she gotten up to go walking he stumbled in the bathroom and fell she did hit her head there is a brief loss of consciousness. Seems to be where everything happened. She is on Sinemet although she tells me she does not have Parkinson's. She not have any vomiting. She recently did surgery on her right thigh she describes a corneal abrasion but states that they did some sort of abrasive therapy to the cornea as part of the treatment we do not have records on its not bothering her at this time. Onset (ago): hour(s) Location: head Severity: mild Relieving factors: none Exacerbating factors: none Associated symptoms: Deny chest pain, confusion, cough, diaphoresis, decreased appetite, dyspnea, fevers/chills, headache(s), malaise, nausea, rash, palpitations, seizures, short of breath, syncope, vomiting or weakness Treatments prior to arrival: none Review of Systems Const: Denies: fever(s), chills, fatigue, malaise or diaphoresis ENMT: Denies: throat pain, ear or mastoid pain, nasal discharge or nasal congestion Card: Denies: chest pain, palpitations or syncope Resp: Denies: dyspnea, productive cough or non-productive cough GI: Denies: abdominal pain, nausea or vomiting : Denies: flank pain, difficulty voiding, dysuria, urinary frequency or urinary urgency Musc: Denies: neck pain or back pain Skin/Breast: Denies: rash Neuro: Denies: headache(s) or confusion PFSH ED PFSH: Medical History Acid reflux Cystitis cystica Depression DM2 (diabetes mellitus, type 2) Gout High cholesterol High risk medication use Hypertension Inflammatory arthritis Neuropathy Onychodystrophy Polyuria PVD (peripheral vascular disease) Restless leg syndrome Urgency incontinence Surgical History History of carpal tunnel surgery History of hysterectomy History of knee surgery Hx of lumpectomy Hx of tonsillectomy Family History Sister Cancer Mother Diabetes Stroke Other CAD (coronary artery disease) Hypertension Rheumatoid arthritis Denies family history of Lupus Psoriatic arthritis Chronic kidney disease (CKD) Social History Smoking and tobacco status: never smoked Alcohol intake: current Alcohol intake frequency: holidays/special occasions only Alcohol type: wine Household members: spouse Marital status: Current occupational status: retired Physical Exam Const: COMMON NORMALS: no acute distress GENERAL APPEARANCE: cooperative and comfortable ORIENTATION/CONSCIOUSNESS: Yes awake, Yes oriented to person, Yes oriented to place and Yes oriented to time HENMT: COMMON NORMALS: normocephalic and hearing grossly normal bilaterally HEAD & SCALP: normocephalic Eye: COMMON NORMALS: Equal, round and reactive pupils present, EOMs intact bilaterally, conjunctivae normal and no scleral icterus CONJUNCTIVA: Yes conjunctivae normal PUPIL: Yes Equal, round and reactive pupils present Neck/C-Spine: COMMON NORMALS: full ROM, no lymphadenopathy, supple and no JVD Resp: COMMON NORMALS: normal respiratory effort, No retractions, No use of accessory muscles and clear to auscultation bilaterally AUSCULTATION: clear to auscultation bilaterally Cardio: COMMON NORMALS: no JVD, regular rate, regular rhythm and No murmurs present (Cardio) RATE: regular rate RHYTHM: regular rhythm GI: COMMON NORMALS: Soft to palpation and No hepatosplenomegaly present AUSCULTATION: Yes normoactive bowel sounds PALPATION: Yes Soft to palpation, No Tenderness to palpation present (GI), No Guarding due to palpation present (GI) and Yes No hepatosplenomegaly present Extremity: COMMON NORMALS: normal to inspection, capillary refill normal, no clubbing, cyanosis or edema, no calf tenderness and no pedal edema Neuro: SENSORIUM/ORIENTATION: Yes oriented to person, Yes oriented to place and Yes oriented to time Skin: COMMON NORMALS: no rashes or lesions noted GENERAL SKIN EXAM: no rashes or lesions noted Course Vital Signs: Vital signs: Vital Signs Temperature 99.7 F H 01/17/22 11:00 Pulse Rate 88 07/25/22 17:23 Respiratory Rate 16 01/17/22 13:30 Blood Pressure 163/96 01/17/22 17:23 Pulse Oximetry 94 01/17/22 17:23 Oxygen Delivery Me thod 01/17/22 15:51 MDM - General Adult Medical Decision Making Labs and imaging reviewed no acute findings. Patient still seems a little bit confused at times although at other times she responds appropriately. She prefer to go home we will go ahead and discharge the patient home asked her to follow-up with primary care doctor within the next week return if she has further problems. Itching interestingly she did test positive for COVID-19 for which we treated with Paxil but although her symptoms appear to be rather mild at this time. Medical Records I reviewed the patient's medical records. Lab Data I reviewed the patient's lab results. : 01/17/22 14:45 01/17/22 13:[address] 01/17/22 11:11 IMPRESSION: 1. No acute intracranial hemorrhage. 2. Mild atrophy and small vessel ischemic disease. 3. No skull fracture. 4. Large soft tissue scalp hematoma centered over the LEFT vertex. Laboratory Results WBC 10.3 10^3/uL (4.0-10.0) H 01/17/22 14:45 RBC 4.25 10^6/uL (4.1-5.3) 01/17/22 14:45 Hgb 12.3 g/dL (11.5-15.3) 01/17/22 14:45 Hct 38.2 % (37.0-47.0) 01/17/22 14:45 MCV 89.9 fl (81-99) 01/17/22 14:45 MCH 28.9 pg (28.0-34.0) 01/17/22 14:45 MCHC 32.2 g/dL (30.0-36.0) 01/17/22 14:45 RDW 15.9 % (12.1-15.1) H 01/17/22 14:45 Plt Count 174 10^3/cmm (130-400) 01/17/22 14:45 MPV 11.4 fL (7.4-10.4) H 01/17/22 14:45 Neut % (Auto) 61.6 % 01/17/22 14:45 Lymph % (Auto) 27.7 % 01/17/22 14:45 [place] % (Auto) 8.8 % 01/17/22 14:45 Eos % (Auto) 0.2 % 01/17/22 14:45 Baso % (Auto) 0.4 % 01/17/22 14:45 Neut # (Auto) 6.35 10^3/uL (1.8-7.7) 01/17/22 14:45 Lymph # (Auto) 2.9 10^3/uL (0.8-4.8) 01/17/22 14:45 [place] # (Auto) 0.9 10^3/uL (0.2-0.9) 01/17/22 14:45 Eos # (Auto) 0.0 10^3/uL (0.0-0.8) 01/17/22 14:45 Baso # (Auto) 0.0 10^3/uL (0.0-0.1) 01/17/22 14:45 Nucleated RBC % (auto) 0 % 01/17/22 14:45 Nucleated RBCs # 0.0 /100WBC 01/17/22 14:45 Sodium 142 mmol/L (136-145) 01/17/22 13:30 Potassium 3.4 mmol/L (3.5-5.1) L 01/17/22 13:30 Chloride 99 mmol/L (98-107) 01/17/22 13:30 Carbon Dioxide 29 mmol/L (22-29) 01/17/22 13:30 Anion Gap 17.4 (5-19) 01/17/22 13:30 BUN 18 mg/dL (8-23) 01/17/22 13:30 Creatinine 1.1 mg/dL (0.5-0.9) H 01/17/22 13:30 GFR Calculation Not Reportable 01/17/22 13:30 Glucose 101 mg/dL (65-115) 01/17/22 13:30 Calculated Osmolality 296 mOsm/kg (285-295) H 01/17/22 13:30 Calcium 9.5 mg/dL (8.5-10.5) 01/17/22 13:30 Total Bilirubin 0.4 mg/dL (0.15-1.2) 01/17/22 13:30 AST 22 U/L (0-32) 01/17/22 13:30 ALT 15 U/L (0-33) 01/17/22 13:30 Alkaline Phosphatase 105 IU/L (35-105) 01/17/22 13:30 Total Protein 6.6 g/dL (6.6-8.7) 01/17/22 13:30 Albumin 4.5 g/dL (3.5-5.2) 01/17/22 13:30 Globulin 2.1 g/dL (1.3-4.6) 01/17/22 13:30 Urine Color Yellow (Yellow) 01/17/22 14:22 Urine Appearance Clear (CLEAR) 01/17/22 14:22 Urine pH 7 (5-7) 01/17/22 14:22 Ur Specific Protem 1.005 (1.005-1.030) 01/17/22 14:22 Urine Protein 3+ (Negative) H 01/17/22 14:22 Urine Glucose (UA) Norm (Normal) 01/17/22 14:22 Urine Ketones Negative (Negative) 01/17/22 14:22 Urine Blood Neg (Negative) 01/17/22 14:22 Urine Nitrate Negative (Negative) 01/17/22 14:22 Urine Bilirubin Neg (Negative) 01/17/22 14:22 Urine Urobilinogen Norm mg/dL (Negative) 01/17/22 14:22 Ur Leukocyte Esterase Negative (Negative) 01/17/22 14:22 Urine RBC None /hpf (0-2) 01/17/22 14:22 Urine WBC 0-4 /hpf (0-5) H 01/17/22 14:22 Ur Squamous Epith Cells 5-10 /hpf (0-5) H 01/17/22 14:22 Amorphous Sediment Not Reportable 01/17/22 14:22 Urine Bacteria 1+ /hpf (NONE) H 01/17/22 14:22 Coronavirus 229E (PCR) Not detected (NOT DETECT) 01/17/22 14:03 SARS-CoV-2 (PCR) Detected (NOT DETECT) A 01/17/22 14:03 Discharge Plan Discharge Patient Disposition: Home Clinical Impression: Fall, COVID-19 Condition: Stable Prescriptions: New Paxlovid (EUA) 150 mg x 2- 100 mg tablet See Rx Instructions .ROUTE .COMPLEX Qty: 6 0RF Rx Instructions: take TWO 150 mg tablets of nirmatrelvir with ONE 100 mg tablet of ritonavir twice daily for 5 days No Action tramadol [Ultram] 50 mg tablet 50 mg PO Q4H PRN (Reason: pain) 7 Days Qty: 42 0RF amlodipine 10 mg tablet 10 mg PO DAILY atorvastatin 40 mg tablet 40 mg PO DAILY esomeprazole magnesium 40 mg capsule,delayed release(DR/EC) 40 mg PO DAILY carbidopa-levodopa 25-100 mg tablet 1 tab PO TID pregabalin 75 mg capsule 75 mg PO TID allopurinol 300 mg tablet 300 mg PO DAILY hydralazine 50 mg tablet 100 mg PO TID cyanocobalamin (vitamin B-12) [Vitamin B-12] 1,000 mcg Tablet Extended Release 1,000 mcg PO DAILY aspirin [Sherly Low Dose Aspirin] 81 mg Tablet,Delayed Release (Dr/Ec) 81 mg PO DAILY acetaminophen [Tylenol Extra Strength] 500 mg Tablet 500 mg PO Q6H PRN (Reason: Pain) furosemide 40 mg Tablet 40 mg PO BID Discharge Orders: Discharge ED (Routine); Ordered 01/17/22 Ordered By: Vinny Gamboa Referrals: Bairon Chris DO [Primary Care Provider] - Discharge Diet: Usual diet Discharge Activity: Increase activity as tolerated Patient Instructions: COVID-19 (Coronavirus Disease 2019) (ED), Opioid Safety Activity Restrictions/Additional Instructions: You did test positive for COVID-19 if you have worsening symptoms or shortness of breath return to the emergency room prescription for pack Slo-Bid should be taken 1 pill twice daily for 5 days Coding Level of Care Code 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
[2022-01-17 14:23] LABS: Alanine Aminotransferase 15 U/L (0-33); Albumin Level 4.5 g/dL (3.5-5.2); Alkaline Phosphatase 105 IU/L (35-105); Blood Urea Nitrogen 18 mg/dL (8-23); Calcium 9.5 mg/dL (8.5-10.5); Carbon Dioxide 29 mmol/L (22-29); Chloride 99 mmol/L (98-107); Globulin 2.1 g/dL (1.3-4.6); Glucose 101 mg/dL (65-115); Osmolality Calculated 296 mOsm/kg (285-295); Sodium 142 mmol/L (136-145); Total Bilirubin 0.4 mg/dL (0.15-1.2); Total Protein 6.6 g/dL (6.6-8.7)
[2022-01-17 14:36] LABS: Anion Gap 17.4 (5-19); Aspartate Amino Transferase 22 U/L (0-32); Potassium 3.4 mmol/L (3.5-5.1)
[2022-01-17 15:13] LABS: Basophils % 0.4 %; Eosinophils % 0.2 %; Hematocrit 38.2 % (37.0-47.0); Hemoglobin 12.3 g/dL (11.5-15.3); Lymphocytes # 2.9 10^3/uL (0.8-4.8); Lymphocytes % 27.7 %; Mean Corpuscular HGB Conc 32.2 g/dL (30.0-36.0); Mean Corpuscular Hemoglobin 28.9 pg (28.0-34.0); Mean Corpuscular Volume 89.9 fl (81-99); Mean Platelet Volume 11.4 fL (7.4-10.4); Monocytes # 0.9 10^3/uL (0.2-0.9); Monocytes % 8.8 %; Neutrophils # 6.35 10^3/uL (1.8-7.7); Neutrophils % 61.6 %; Nucleated Red Blood Cells % 0 %; Platelet Count 174 10^3/cmm (130-400); Red Blood Count 4.25 10^6/uL (4.1-5.3); Red Cell Distribution Width 15.9 % (12.1-15.1); White Blood Count 10.3 10^3/uL (4.0-10.0)
--- NOTE | 2022-01-17 15:31 | ECG_ITS ---
[facility] Test Date: 2022-01-17 Pat Name: Vania Price Department: Room: Gender: Female Puncher: : 1945 Requested By: Vinny Joseph Order Number: [id number] Kinjal MD: Matti Munoz M.D. Measurements Intervals [place] Rate: 84 P: 61 IA: 186 QRS: -28 QRSD: 99 T: 104 QT: 377 QTc: 447 Interpretive Statements SINUS RHYTHM BORDERLINE LEFT AXIS DEVIATION [QRS AXIS < -20] ST DEVIATION AND MODERATE T-WAVE ABNORMALITY, CONSIDER LATERAL ISCHEMIA [-0.1+ mV T WAVE IN I/aVL/V5/V6] Compared to ECG 03/08/2020 07:15:01 T-wave abnormality now present Possible ischemia now present Sinus bradycardia no longer present First degree AV block no longer present Electronically Signed On 01-17-2022 21:00:03 CDT by Matti Munoz M.D. [id number]
[2022-01-17 15:55] LABS: Add Urine Microscopic? YES; Bacteria Urine 1+ /hpf; Bilirubin Urine Neg (Negative); Blood Urine Neg (Negative); Glucose Urine UA Norm (Normal); Ketones Urine Negative (Negative); Leukocyte Esterase Urine Negative (Negative); Nitrate Urine Negative (Negative); Protein Urine 3+ (Negative); Specific Gravity, Urine 1.005 (1.005-1.030); Urine Appearance Clear (CLEAR); Urine Color Yellow (Yellow); Urobilinogen Urine Norm (Negative); WBC Urine 0-4 /hpf (0-5); pH Urine 7 (5-7)
[2022-01-17 15:56] LABS: Add Urine Culture? No
[2022-01-17 16:29] LABS: Adenovirus Not Detected (NOT DETECT); Chlamydia Pneumoniae Not Detected (NOT DETECT); Coronavirus 229E,HKU1,NL63,OC4 Not Detected (NOT DETECT); Human Metapneumovirus Not Detected (NOT DETECT); Human Rhinovirus/Enterovirus Not Detected (NOT DETECT); Influenza A Not Detected (NOT DETECT); Influenza A H1 Not Detected (NOT DETECT); Influenza A H1-2009 Not Detected (NOT DETECT); Influenza A H3 Not Detected (NOT DETECT); Influenza B Not Detected (NOT DETECT); Mycoplasma Pneumoniae Not Detected (NOT DETECT); Parainfluenza Virus Type 1 Not Detected (NOT DETECT); Parainfluenza Virus Type 2 Not Detected (NOT DETECT); Parainfluenza Virus Type 3 Not Detected (NOT DETECT); Parainfluenza Virus Type 4 Not Detected (NOT DETECT); Respiratory Syncytial Virus A Not Detected (NOT DETECT); Respiratory Syncytial Virus B Not Detected (NOT DETECT); SARS-COV-2 Detected (NOT DETECT)
== END 2022-01-17 17:25 | disposition home or self-care (01) ==
PROVIDERS: Emergency Provider Family Medicine; PCP Electrodiagnostic Medicine
DX: U07.1 COVID-19 (principal); Z79.82 Long term (current) use of aspirin; E11.9 Type 2 diabetes mellitus without complications; I10 Essential (primary) hypertension; W01.0XXA Fall on same level from slipping, tripping and stumbling without subsequent striking against object, initial encounter
CPT/HCPCS: 70450; 80053; 81001; 85025; 87635; 93005; 99285

== ENCOUNTER → 2022-03-08 15:28 | Outpatient (BNVA) | payer MEDICARE, SELFPAY | PROVIDERS: PCP Electrodiagnostic Medicine; Visit Provider Podiatrist Foot & Ankle Surgery | DX: G57.62 Lesion of plantar nerve, left lower limb (principal); Z71.89 Other specified counseling | CPT/HCPCS: 64455 ==

== ENCOUNTER → 2022-03-15 09:15 | Outpatient (BNVA) | payer MEDICARE, SELFPAY | PROVIDERS: PCP Electrodiagnostic Medicine; Visit Provider Podiatrist Foot & Ankle Surgery | DX: G57.62 Lesion of plantar nerve, left lower limb (principal); Z71.89 Other specified counseling | CPT/HCPCS: 64455 ==

== ENCOUNTER → 2022-03-22 14:44 | Outpatient (BNVA) | payer MEDICARE, SELFPAY | PROVIDERS: PCP Electrodiagnostic Medicine; Visit Provider Podiatrist Foot & Ankle Surgery | DX: G57.62 Lesion of plantar nerve, left lower limb (principal); Z71.89 Other specified counseling | CPT/HCPCS: 64455 ==

== ENCOUNTER → 2022-03-29 15:26 | Outpatient (BNVA) | payer MEDICARE, SELFPAY | PROVIDERS: PCP Electrodiagnostic Medicine; Visit Provider Podiatrist Foot & Ankle Surgery | DX: G57.62 Lesion of plantar nerve, left lower limb (principal); Z71.89 Other specified counseling | CPT/HCPCS: 64455 ==

== ENCOUNTER → 2022-04-06 15:23 | Outpatient (BNVA) | payer MEDICARE, SELFPAY | PROVIDERS: PCP Electrodiagnostic Medicine; Visit Provider Podiatrist Foot & Ankle Surgery | DX: G57.62 Lesion of plantar nerve, left lower limb (principal); Z71.89 Other specified counseling | CPT/HCPCS: 64455 ==

== ENCOUNTER → 2022-04-21 14:11 | Outpatient (BNVA) | payer MEDICARE, SELFPAY | PROVIDERS: PCP Electrodiagnostic Medicine; Visit Provider Podiatrist Foot & Ankle Surgery | DX: M19.072 Primary osteoarthritis, left ankle and foot (principal) | CPT/HCPCS: 99214 ==

== ENCOUNTER 2022-05-06 06:47 | Day surgery (SDC) | payer MEDICARE, SELFPAY ==
--- NOTE | 2022-05-06 | SCC_ITS ---
Left second hammertoe correction. CPT code 69553 Right second hammertoe correction. CPT code 50598 7 seconds of fluoroscopic guidance, for a cumulative dose of 0.08 mGy, was provided to Dr. Schrader by the radiology department. C-arm images of the LEFT foot were saved for the patient's permanent record. [email or web address]
--- NOTE | 2022-05-06 | XR_ITS ---
WS: [id number] Exam: XR foot LT 2V [id number] Date/Time of Exam: 05/06/2022 12:00 AM Reason For Exam: MERRITT PICS A single AP C-arm image of the left forefoot is submitted for evaluation. Orthopedic wires superimpose the long axis of the second and third toes. No other significant finding on this limited series.
--- NOTE | 2022-05-06 06:22 | XRR_ITS ---
PROCEDURE INFORMATION: Exam: XR Left Foot Exam date and time: 05/06/2022 9:58 AM Age: 77 years old Clinical indication: Condition or disease; Arthritis; Type not specified; Ankle and foot; Left; Additional info: Arthritis left second and third toe interphalangeal joints TECHNIQUE: Imaging protocol: Radiologic exam of the Left foot. Views: 3 or more views. COMPARISON: CR XR foot LT min 3V* [id number] 08/24/2020 3:47 PM FINDINGS: Bones/joints: Fusion of the distal interphalangeal joints of the 2nd and 3rd digits. Joint space narrowing in the remainder of the interphalangeal joints. No acute fracture identified. Osteopenia. Soft tissues: No joint effusion is seen.
[2022-05-06 07:17] VITALS: BP 157/83; PULSE 84; RESP 18; TEMP 36.8; O2SAT 95
[2022-05-06] MEDS: sodium chloride 0.9% 1,000 ML 30 ML IV (07:31)
--- NOTE | 2022-05-06 08:04 | P.ANESASSM_ITS ---
Pre-Anesthetic Assessment Height/Weight: Height 1.6 m Weight 77.111 kg Temp Pulse Resp BP Pulse Ox O2 Del Method 98.3 F 84 18 157/83 95 05/06/22 07:17 05/06/22 07:17 05/06/22 07:17 05/06/22 07:17 05/06/22 07:17 05/06/22 07:17 Preop Diagnosis: Degenerative arthritis left second toe. Operation Date: 05/06/22 08:20 Proposed Procedures p ?Arthrodesis of left second toe proximal and distal interphalangeal joint 56650,M79.675,M79.675,G89.29,M19.079(Left) - Swapnil Schrader DPM Familial anesthetic complications: none Was Beta Annika taken within 24 hours: N/A Was Clonidine taken within 24 hours: N/A Last intake: Intake Last Liquid Date 05/05/22 Last Liquid Time 22:00 Last Solid Date 05/05/22 Last Solid Time 22:00 Social No alcohol and No tobacco Exam alert, oriented x 3, clear to auscultation bilaterally and regular rate & rhythm Airway Submandibular: within normal limits Cervical ROM: within normal limits Mallampati: Class II Dentition: partials CV/HEM Hypertension GI Gastroesophageal Reflux Disease Metabolic Hyperlipidemia and Morbid Obesity [facility] [place] Osteoarthritis/DJD and Rheumatoid Arthritis Anesthetic Plan ASA status: 3 Anesthesia: Choice Medications/Allergies Home Medications Medication Instructions Recorded Confirmed Last Taken Type atorvastatin 40 mg tablet 40 mg PO DAILY 08/20/19 05/06/22 05/06/22 06:00 History carbidopa 25 mg-levodopa 100 mg 1 tab PO TID 08/20/19 05/06/22 05/06/22 06:00 History tablet esomeprazole magnesium 40 mg 40 mg PO DAILY 08/20/19 05/06/22 05/05/22 History capsule,delayed release pregabalin 75 mg capsule 75 mg PO TID 08/20/19 05/06/22 05/06/22 06:30 History acetaminophen 500 mg tablet 1,000 mg PO Q6H PRN Pain 03/08/20 05/06/22 05/05/22 History (Tylenol Extra Strength) aspirin 81 mg tablet,delayed 81 mg PO DAILY 03/08/20 05/06/22 05/05/22 History release (Sherly Low Dose Aspirin) cyanocobalamin (vitamin B-12) 1,000 mcg PO DAILY 03/08/20 05/06/22 05/05/22 History 1,000 mcg tablet,extended release (Vitamin B-12 ER) amlodipine 10 mg tablet 10 mg PO DAILY 04/07/20 05/06/22 05/05/22 History allopurinol 300 mg tablet 300 mg PO DAILY 11/17/20 05/06/22 05/06/22 06:00 History hydralazine 50 mg tablet 100 mg PO TID 11/17/20 05/06/22 05/06/22 06:00 History furosemide 40 mg tablet 40 mg PO BID 01/17/22 05/06/22 05/05/22 History hydrocodone 5 mg-acetaminophen 325 1 tab PO Q4H PRN pain 7 days #20 05/06/22 Unknown Rx mg tablet tabs Allergies Allergy/AdvReac Type Severity Reaction Status Date / Time estrogens, conjugated Allergy emotional Verified 05/06/22 07:03 [From Premarin] Current Medications Generic Name Dose Route Start Last Admin Trade Name Freq PRN Reason Stop Dose Admin Sodium Chloride 1,000 mls @ 30 mls/hr 05/06/22 07:00 05/06/22 07:31 Sodium Chloride 0.9% IV 05/07/22 06:59 30 mls/hr .Q24H FERMÍN Administration PFSH Anesthesia Medical History Acid reflux Cystitis cystica Depression DM2 (diabetes mellitus, type 2) Gout High cholesterol High risk medication use Hypertension Inflammatory arthritis Neuropathy Onychodystrophy Polyuria PVD (peripheral vascular disease) Restless leg syndrome Urgency incontinence Surgical History History of carpal tunnel surgery History of hysterectomy History of knee surgery Hx of lumpectomy Hx of tonsillectomy Family History Sister Cancer Mother Diabetes Stroke Other CAD (coronary artery disease) Hypertension Rheumatoid arthritis Denies family history of Lupus Psoriatic arthritis Chronic kidney disease (CKD) Social History Smoking and tobacco status: never smoked Alcohol intake: current Alcohol intake frequency: holidays/special occasions only Alcohol type: wine Household members: spouse Marital status: Current occupational status: retired Data Anesthesia Cardiac Studies: No Data to Display
--- NOTE | 2022-05-06 08:52 | W.PM.OPSUD ---
Surgery/Procedure H&P Update DATE OF PROCEDURE: May 06, 2022 DATE H&P PERFORMED: 04/21/22 CHANGES TO PREVIOUS DOCUMENTATION: none PREOP DIAGNOSIS: Degenerative arthritis left second toe. PLANNED PROCEDURE: Operation Date: 05/06/22 08:20 Proposed Procedures p ?Arthrodesis of left second toe proximal and distal interphalangeal joint 41823,M79.675,M79.675,G89.29,M19.079(Left) - Swapnil Schrader DPM
[2022-05-06] MEDS: ceFAZolin 2,000 MG in sodium chloride 0.9% (plus) 50 ML 100 MG IV (09:15)
[2022-05-06 10:25] VITALS: BP 126/62; PULSE 69; RESP 16; TEMP 36.7; O2SAT 98
--- NOTE | 2022-05-06 10:25 | P.OP_ITS ---
Operative Report Date of procedure: May 06, 2022 Pre-op diagnosis: Preop Diagnosis Degenerative arthritis left second and left third toe. Post-op diagnosis: Same Post-op findings: Arthrosis of left second and third toe more severe at the distal interphalangeal joint Procedure done: Left second hammertoe correction. CPT code 34847 Right second hammertoe correction. CPT code 11239 Implants: 0.062 K wire x2, 4-0 Vicryl, 4-0 nylon Specimens removed/disposition: None Pathology: None Surgeon: Swapnil Schrader D.P.M. Sales Donor Recruitment Representative: See intraoperative documentation Estimated blood loss: 5 37 IV fluids: 0 Urine output: 0 Complications: None Brief History: Pleasant 77-year-old female presents with a chief complaint of left second and third toe pain, maximum pain is at the distal interphalangeal joint left second and third with x-ray reflecting degenerative changes, joint space narrowing, erosive changes and subchondral sclerosis at this joint and to a lesser degree the proximal interphalangeal joint at the left second and third toes.? Have underwent significant diagnostic testing with ultrasound and x-ray.? Conservative management has been exhausted consisting of topical anti- inflammatories oral anti-inflammatories, supportive shoes, steroid injections, sclerosing injections.? Patient continues to have pain on a daily basis.? She is wishing to discuss surgical options.? Discussed risks versus benefits of proximal and distal interphalangeal joint arthrodesis of the left second toe.? Advised the patient that should her pain predominantly be a result of arthrosis that this would be a successful surgery with more predictable outcome however there still could be underlying neuroma component contributing to referred and radiating pain.? Patient states that she understands this risk and would like to proceed.? Can be done outpatient under MAC anesthesia.? I reviewed at length with the patient, the risks, potential complications, benefits, alternatives, expectations, and typical outcomes associated with the surgery. The risks and potential complications were explained in detail, including but not limited to infection, wound dehiscence or soft tissue complications, bleeding and hematoma, chronic edema, neuritis or nerve damage producing numbness or chronic pain, CRPS, failure to relieve pain or worsening pain, thick / painful / unsightly sc ar, limited motion / stiffness, malposition, delayed union, malunion, or nonunion, fracture, reaction to implants, anesthetic complications, venous thromboembolism, and deformity recurrence.? I discussed the notion of no regrets with the patient as it pertains to complications and outcomes. The patient seemed to understand the nature of the proposed care and required convalescence. They asked appropriate questions, answered to their satisfaction. They are aware no guarantees can be made as to a satisfactory outcome and they understand there may be other possible unforeseen complications or outcomes not listed here that will be treated accordingly if they arise. There were no written or implied guarantees given to the patient. They gave informed consent to proceed. Procedure: Under mild sedation the patient was brought to the operating room and remained on the gurney in supine position. A timeout was performed. Anesthesia was then administered by the anesthesia service. Local anesthesia injected by myself consisting of 0.5% Marcaine plain total of 20 cc in a left second and third ray block fashion. Well-padded pneumatic tourniquet applied to the left ankle. Left lower extremity was then scrubbed, prepped and draped utilizing normal aseptic technique. Left foot was then exanguinated with an Esmarch bandage and the tourniquet inflated to 250 mmHg. Attention was directed to the dorsal aspect of the left second and third toes where a linear longitudinal incision was made over the proximal and distal interphalangeal joints with a #15 blade. Dissection is carried down through subcutaneous tissue to the layer of the extensor tendon at the left second and third toes which was then transected at the distal interphalangeal joint transversely and reflected proximally and held by mosquito hemostats at the left second and third toes. The left second and third toe proximal and distal interphalangeal joints were released of the soft tissue and capsular attachments and denuded of articular surface both at the base of the distal phalanx and intermediate phalanx as well as the head of the intermediate phalanx and proxima l phalanx of the left second and third toes. Debris from joint preparation for arthrodesis was passed from operative field followed by saline flush of the left second and third toes. Next a 0.062 K wire was driven from proximal to distal starting at the base of the intermediate phalanx of the left second and third toe and driven out the distal aspect of the left second third toe and then driven proximally in the head of the proximal phalanx of the left second and third toe and secured at the base of the proximal phalanx of the left second third toe without violating the second or third metatarsal phalangeal joint this was confirmed with 3 standard views AP, oblique and lateral view utilizing intraoperative fluoroscopy and noted to be excellent and down the medullary canal of the distal, intermediate and proximal phalanx of the left second third toe. The osteotomy sites were compressed and an excellent apposition at the proximal and interphalangeal joint arthrodesis sites of the left second and third toe. The incisions were then irrigated with copious amounts of sterile skin solution. The extensor tendon of the left second and third toe was reapproximated utilizing 4-0 Vicryl and skin closed with 4-0 nylon. Incision sites were dressed with Adaptic, sterile 4 x 4's, Kerlix and Apollo wrap. Cam boot was then applied to the left foot. Excess pin was trimmed and bent at 90 degr ees and covered with a pin cover. Tourniquet was then deflated and a prompt hyperemic response was noted to the distal digits of the left foot. Patient tolerated the procedure and anesthesia well and was transferred to the PACU with vital signs stable and vascular status intact. Following a period of postop monitoring she will be discharged home is to decrease activities, utilize cam boot at all times and ambulating into elevate her left foot while resting. Was given at home care instructions as well as follow-up in my cell phone number to contact with any postoperative questions or concerns.
[2022-05-06 10:30] VITALS: BP 139/60; PULSE 70; RESP 15; O2SAT 99
[2022-05-06 10:37] VITALS: BP 133/43; PULSE 66; RESP 15; TEMP 36.6; O2SAT 99
[2022-05-06 10:44] VITALS: BP 129/61; PULSE 69; RESP 18; TEMP 36.8; O2SAT 93
[2022-05-06 10:58] VITALS: BP 126/78; PULSE 66; RESP 18; O2SAT 90
--- NOTE | 2022-05-06 15:03 | ANE.PACU2 ---
Inpatient post-anesthesia follow up: Airway intact: Yes Vital signs: Temperature 98.3 F Pulse Rate 66 Respiratory Rate 18 Blood Pressure 126/78 Pulse Oximetry 90 Oxygen Delivery Me thod Room Air Oxygen Flow Rate 10 Fraction of Inspir ed Oxygen Hydration adequate: Yes Nausea and vomiting: No Pain level: 2 Mental status: Baseline
== END 2022-05-06 11:20 | disposition home or self-care (01) ==
PROVIDERS: PCP Electrodiagnostic Medicine; Visit Provider Podiatrist Foot & Ankle Surgery
PROC: (CPT 28740; principal; 2022-05-06 08:10)
DX: M19.072 Primary osteoarthritis, left ankle and foot (principal); I10 Essential (primary) hypertension; K21.9 Gastro-esophageal reflux disease without esophagitis; E78.5 Hyperlipidemia, unspecified; E66.01 Morbid (severe) obesity due to excess calories; Z68.30 Body mass index [BMI] 30.0-30.9, adult; M06.9 Rheumatoid arthritis, unspecified; E11.40 Type 2 diabetes mellitus with diabetic neuropathy, unspecified
CPT/HCPCS: 28285 ×2; 73620; 73630; 76000; C1713; J0690; J2704; J3010; J3490; J7030

== ENCOUNTER → 2022-05-23 08:44 | Outpatient (BNVA) | payer MEDICARE, SELFPAY | PROVIDERS: PCP Electrodiagnostic Medicine; Visit Provider Podiatrist Foot & Ankle Surgery | DX: Z98.890 Other specified postprocedural states (principal) | CPT/HCPCS: 99024 ==

== ENCOUNTER 2022-06-08 02:04 | Emergency (ER) | payer MEDICARE, SELFPAY ==
[2022-06-08 02:06] VITALS: BP 189/73; PULSE 119; RESP 16; TEMP 38.2; O2SAT 95
--- NOTE | 2022-06-08 02:13 | ECG_ITS ---
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 Measurements Intervals [place] Rate: 89 P: 56 DC: 198 QRS: -24 QRSD: 95 T: 96 QT: 354 QTc: 432 Interpretive Statements SINUS RHYTHM WITH OCCASIONAL SUPRAVENTRICULAR PREMATURE COMPLEXES BORDERLINE LEFT AXIS DEVIATION [QRS AXIS < -20] ST DEVIATION AND MODERATE T-WAVE ABNORMALITY, CONSIDER LATERAL ISCHEMIA [-0.1+ mV T-WAVE IN I/aVL/V5/V6] Compared to ECG 01/17/2022 15:44:34 No significant changes Electronically Signed On 06-08-2022 18:07:49 [employer] PROFESSIONAL by Matti Munoz M.D. [id number]
--- NOTE | 2022-06-08 02:13 | XRR_ITS ---
PROCEDURE INFORMATION: Exam: XR Chest Exam date and time: 06/08/2022 2:16 AM Age: 77 years old Clinical indication: Patient HX: Cough with generalized weakness TECHNIQUE: Imaging protocol: Radiologic exam of the chest. Views: 1 view. COMPARISON: CR XR chest 1V [id number] 09/20/2018 1:04 PM FINDINGS: Lungs: No CHF/pulmonary edema. Poor inspiration somewhat limits evaluation, especially of the lung bases. Suspect very mild left lower lung opacities. These findings could represent atelectasis or pneumonitis. Please correlate clinically. Visible lungs otherwise appear essentially clear. Pleural spaces: No visible pneumothorax. No definite pleural fluid. Heart/Mediastinum: Heart size is within normal limits. Bones/joints: No significant acute finding. XR/XR chest 1V portable [id number] IMPRESSION: 1. Suspect very mild left lower lung opacities, see above discussion. 2. Other findings discussed above.
--- NOTE | 2022-06-08 02:32 | W.ED.WEAKNES ---
HPI - Weakness General: Chief complaint: Weakness Stated complaint: generalized weakness Time Seen by Provider: 06/08/22 02:07 Source: patient and EMS Mode of arrival: EMS Limitations: no limitations History of Present Illness: 77-year-old female states over the last 2 to 3 days she been having generalized weakness along with body aches slight cough and low-grade fever she does have a fever here 100.8 she states that she just has not felt like eating or drinking and is felt weak in nature had some slight confusion at home here she is able answer all my questions appropriately she is not confused here denies headache Associated symptoms: Reports fever(s); Denies chest pain, dysuria, easy bruising, headache(s), nausea or vomiting Review of Systems Const: Reports: fever(s) and body aches Eyes: Denies: blurry vision or eye discomfort ENMT: Denies: throat pain or dental pain Card: Denies: chest pain Resp: Denies: dyspnea GI: Denies: abdominal pain, nausea, vomiting or diarrhea : Denies: dysuria Musc: Denies: neck pain or back pain Skin/Breast: Denies: rash Neuro: Denies: headache(s) Psych: Denies: depression Jp/Lymph: Denies: easy bruising All/Imm: Denies: urticaria PFSH ED PFSH: Medical History Acid reflux Cystitis cystica Depression DM2 (diabetes mellitus, type 2) Gout High cholesterol High risk medication use Hypertension Inflammatory arthritis Neuropathy Onychodystrophy Polyuria PVD (peripheral vascular disease) Restless leg syndrome Urgency incontinence Surgical History History of carpal tunnel surgery History of hysterectomy History of knee surgery Hx of lumpectomy Hx of tonsillectomy Family History Sister Cancer Mother Diabetes Stroke Other CAD (coronary artery disease) Hypertension Rheumatoid arthritis Denies family history of Lupus Psoriatic arthritis Chronic kidney disease (CKD) Social History Smoking and tobacco status: never smoked Alcohol intake: current Alcohol intake frequency: holidays/special occasions only Alcohol type: wine Household members: spouse Marital status: Current occupational status: retired Physical Exam Const: COMMON NORMALS: no acute distress, patient oriented x3 and healthy appearing HENMT: COMMON NORMALS: normocephalic and atraumatic HEAD & SCALP: normocephalic and atraumatic Eye: COMMON NORMALS: Equal, round and reactive pupils present and EOMs intact bilaterally PUPIL: Yes Equal, round and reactive pupils present Neck/C-Spine: COMMON NORMALS: full ROM and supple Chest: COMMONS NORMALS: normal inspection of the chest and normal palpation of entire chest wall Resp: COMMON NORMALS: normal respiratory effort, No retractions, No use of accessory muscles and clear to auscultation bilaterally AUSCULTATION: clear to auscultation bilaterally Cardio: COMMON NORMALS: regular rate, regular rhythm and No murmurs present (Cardio) RATE: regular rate RHYTHM: regular rhythm GI: COMMON NORMALS: Normal to inspection, nondistended, normoactive bowel sounds present, Soft to palpation, non-tender and no masses PALPATION: Yes Soft to palpation Extremity: COMMON NORMALS: normal to inspection and full ROM Neuro: COMMON NORMALS: patient oriented x3, moves all extremities and no focal motor deficits Psych: COMMON NORMALS: mental status grossly normal, Normal thought process present and cooperative THOUGHT PROCESS: Normal thought process present Skin: COMMON NORMALS: no rashes or lesions noted and no wounds GENERAL SKIN EXAM: no rashes or lesions noted Course Vital Signs: Vital signs: Vital Signs Temperature 100.8 F H 06/08/22 02:06 Pulse Rate 87 06/08/22 03:55 Respiratory Rate 17 06/08/22 03:55 Blood Pressure 168/67 06/08/22 03:55 Pulse Oximetry 93 06/08/22 03:55 Oxygen Delivery Me thod 06/08/22 03:15 MDM - Weakness Medical Decision Making Patient presents here with fever along with some generalized weakness she has been well-appearing here with normal vitals and normal blood work she does have fluid I will start her on Tamiflu she stable for discharge to return if worsening she understands agrees to plan. Lab Data 06/08/22 02:53 06/08/22 02:53 Laboratory Results WBC 9.2 10^3/uL (4.0-10.0) 06/08/22 02:53 RBC 4.10 10^6/uL (4.1-5.3) 06/08/22 02:53 Hgb 11.4 g/dL (11.5-15.3) L 06/08/22 02:53 Hct 37.1 % (37.0-47.0) 06/08/22 02:53 MCV 90.5 fl (81-99) 06/08/22 02:53 MCH 27.8 pg (28.0-34.0) L 06/08/22 02:53 MCHC 30.7 g/dL (30.0-36.0) 06/08/22 02:53 RDW 16.1 % (12.1-15.1) H 06/08/22 02:53 Plt Count 172 10^3/cmm (130-400) 06/08/22 02:53 MPV 10.6 fL (7.4-10.4) H 06/08/22 02:53 Neut % (Auto) 62.5 % 06/08/22 02:53 Lymph % (Auto) 25.9 % 06/08/22 02:53 Latimer % (Auto) 10.0 % 06/08/22 02:53 Eos % (Auto) 0.6 % 06/08/22 02:53 Baso % (Auto) 0.4 % 06/08/22 02:53 Neut # (Auto) 5.77 10^3/uL (1.8-7.7) 06/08/22 02:53 Lymph # (Auto) 2.4 10^3/uL (0.8-4.8) 06/08/22 02:53 Latimer # (Auto) 0.9 10^3/uL (0.2-0.9) 06/08/22 02:53 Eos # (Auto) 0.1 10^3/uL (0.0-0.8) 06/08/22 02:53 Baso # (Auto) 0.0 10^3/uL (0.0-0.1) 06/08/22 02:53 Nucleated RBC % (auto) 0 % 06/08/22 02:53 Nucleated RBCs # 0.0 /100WBC 06/08/22 02:53 Sodium 143 mmol/L (136-145) 06/08/22 02:53 Potassium 3.2 mmol/L (3.5-5.1) L 06/08/22 02:53 Chloride 101 mmol/L (98-107) 06/08/22 02:53 Carbon Dioxide 29 mmol/L (22-29) 06/08/22 02:53 Anion Gap 16.2 (5-19) 06/08/22 02:53 BUN 22 mg/dL (8-23) 06/08/22 02:53 Creatinine 1.2 mg/dL (0.5-0.9) H 06/08/22 02:53 GFR Calculation Not Reportable 06/08/22 02:53 Glucose 127 mg/dL (65-115) H 06/08/22 02:53 Calculated Osmolality 301 mOsm/kg (285-295) H 06/08/22 02:53 Calcium 9.4 mg/dL (8.5-10.5) 06/08/22 02:53 Total Bilirubin 0.3 mg/dL (0.15-1.2) 06/08/22 02:53 AST 19 U/L (0-32) 06/08/22 02:53 ALT 11 U/L (0-33) 06/08/22 02:53 Alkaline Phosphatase 112 U/L (35-105) H 06/08/22 02:53 Total Protein 7.2 g/dL (6.6-8.7) 06/08/22 02:53 Albumin 4.3 g/dL (3.5-5.2) 06/08/22 02:53 Globulin 2.9 g/dL (1.3-4.6) 06/08/22 02:53 Influenza Type A Ag positive (Negative) H 06/08/22 02:53 Influenza Type B Ag negative (Negative) 06/08/22 02:53 EKG Data EKG 1: I personally reviewed and interpreted this EKG as follows: EKG interpretation date: 06/08/22 EKG interpretation time: 03:05 Interpretation: nsr hr [address] or t wave abnormalities qrs 95 qtc 401 Discharge Plan Discharge Patient Disposition: Home Clinical Impression: Influenza A Condition: Stable Prescriptions: New Tamiflu 75 mg capsule 75 mg PO BID 5 Days Qty: 10 0RF No Action amlodipine 10 mg tablet 10 mg PO DAILY atorvastatin 40 mg tablet 40 mg PO DAILY esomeprazole magnesium 40 mg capsule,delayed release(DR/EC) 40 mg PO DAILY carbidopa-levodopa 25-100 mg tablet 1 tab PO TID pregabalin 75 mg capsule 75 mg PO TID allopurinol 300 mg tablet 300 mg PO DAILY hydralazine 50 mg tablet 100 mg PO TID oxycodone-acetaminophen [Percocet] 5-325 mg tablet 1 tab PO Q8H PRN (Reason: pain) 7 Days Qty: 21 0RF cephalexin 500 mg capsule 500 mg PO BID 7 Days Qty: 14 0RF cyanocobalamin (vitamin B-12) [Vitamin B-12] 1,000 mcg Tablet Extended Release 1,000 mcg PO DAILY aspirin [Sherly Low Dose Aspirin] 81 mg Tablet,Delayed Release (Dr/Ec) 81 mg PO DAILY acetaminophen [Tylenol Extra Strength] 500 mg Tablet 1,000 mg PO Q6H PRN (Reason: Pain) furosemide 40 mg Tablet 40 mg PO BID Discharge Orders: Discharge ED (Routine); Ordered 06/08/22 Ordered By: Joycelyn Ibarra Referrals: Bairon Chris, [Primary Care Provider] - 1-3 days Discharge Diet: Advance as tolerated Discharge Activity: Resume usual activity Patient Instructions: Influenza (ED) Coding Level of Care Code ED Ham Pumper for Shanika Fwd Exam Comprehensive
[2022-06-08] MEDS: sodium chloride 0.9% 1,000 ML 999 ML IV (02:55)
[2022-06-08 02:59] LABS: Basophils % 0.4 %; Eosinophils # 0.1 10^3/uL (0.0-0.8); Eosinophils % 0.6 %; Hematocrit 37.1 % (37.0-47.0); Hemoglobin 11.4 g/dL (11.5-15.3); Lymphocytes # 2.4 10^3/uL (0.8-4.8); Lymphocytes % 25.9 %; Mean Corpuscular HGB Conc 30.7 g/dL (30.0-36.0); Mean Corpuscular Hemoglobin 27.8 pg (28.0-34.0); Mean Corpuscular Volume 90.5 fl (81-99); Mean Platelet Volume 10.6 fL (7.4-10.4); Monocytes # 0.9 10^3/uL (0.2-0.9); Neutrophils # 5.77 10^3/uL (1.8-7.7); Neutrophils % 62.5 %; Nucleated Red Blood Cells % 0 %; Platelet Count 172 10^3/cmm (130-400); Red Cell Distribution Width 16.1 % (12.1-15.1); White Blood Count 9.2 10^3/uL (4.0-10.0)
[2022-06-08 03:15] VITALS: BP 148/67; PULSE 87; RESP 19; O2SAT 92
[2022-06-08 03:16] LABS: Alanine Aminotransferase 11 U/L (0-33); Albumin Level 4.3 g/dL (3.5-5.2); Alkaline Phosphatase 112 U/L (35-105); Anion Gap 16.2 (5-19); Aspartate Amino Transferase 19 U/L (0-32); Blood Urea Nitrogen 22 mg/dL (8-23); Calcium 9.4 mg/dL (8.5-10.5); Carbon Dioxide 29 mmol/L (22-29); Chloride 101 mmol/L (98-107); Globulin 2.9 g/dL (1.3-4.6); Glucose 127 mg/dL (65-115); Osmolality Calculated 301 mOsm/kg (285-295); Potassium 3.2 mmol/L (3.5-5.1); Sodium 143 mmol/L (136-145); Total Bilirubin 0.3 mg/dL (0.15-1.2); Total Protein 7.2 g/dL (6.6-8.7)
[2022-06-08 03:45] LABS: Influenza A by IFA positive (Negative); Influenza B by IFA negative (Negative)
[2022-06-08 03:55] VITALS: BP 168/67; PULSE 87; RESP 17; O2SAT 93
[2022-06-08 04:12] LABS: Glucose Urine UA Norm (Normal); Ketones Urine 1+ (Negative); Protein Urine 3+ (Negative); Specific Gravity, Urine 1.015 (1.005-1.030); Urine Appearance Clear (CLEAR); Urine Color Yellow (Yellow); pH Urine 5 (5-7)
[2022-06-08 04:13] LABS: Add Urine Culture? No; Add Urine Microscopic? YES; Bacteria Urine TRACE /hpf; Bilirubin Urine Neg (Negative); Blood Urine Neg (Negative); Leukocyte Esterase Urine Negative (Negative); Nitrate Urine Negative (Negative); RBC Urine 0-4 /hpf (0-2); Renal Epithelial Cells Urine 0-2 /hpf; Transitional Epi Cells Urine 0-4 /hpf; Urobilinogen Urine Norm (Negative); WBC Urine 0-4 /hpf (0-5)
[2022-06-08] MEDS: oseltamivir phosphate 75 mg Capsule PO (04:19)
== END 2022-06-08 04:20 | disposition home or self-care (01) ==
PROVIDERS: Emergency Provider Emergency Medicine; PCP Electrodiagnostic Medicine
DX: J10.1 Influenza due to other identified influenza virus with other respiratory manifestations (principal); Z79.82 Long term (current) use of aspirin; E11.9 Type 2 diabetes mellitus without complications; I10 Essential (primary) hypertension
CPT/HCPCS: 71045; 80053; 81001; 85025; 87804; 93005; 96360; 99284; J7030

== ENCOUNTER → 2022-06-14 15:47 | Outpatient (BNVA) | payer MEDICARE, SELFPAY | PROVIDERS: PCP Electrodiagnostic Medicine; Visit Provider Podiatrist Foot & Ankle Surgery | DX: Z98.890 Other specified postprocedural states (principal) | CPT/HCPCS: 73630; 99024 ==

== ENCOUNTER → 2022-07-07 12:57 | Outpatient (BNVA) | payer MEDICARE, SELFPAY | PROVIDERS: PCP Electrodiagnostic Medicine; Visit Provider Podiatrist Foot & Ankle Surgery | DX: Z98.890 Other specified postprocedural states (principal) | CPT/HCPCS: 73630; 99024 ==

== ENCOUNTER → 2022-08-11 14:24 | Outpatient (BNVA) | payer MEDICARE, SELFPAY | PROVIDERS: PCP Electrodiagnostic Medicine; Visit Provider Podiatrist Foot & Ankle Surgery | DX: Z98.890 Other specified postprocedural states (principal) | CPT/HCPCS: 73630; 99024 ==

== ENCOUNTER → 2022-08-25 09:06 | Outpatient (BNVA) | payer MEDICARE, SELFPAY | PROVIDERS: PCP Electrodiagnostic Medicine; Visit Provider Podiatrist Foot & Ankle Surgery | DX: Z98.890 Other specified postprocedural states (principal); M79.672 Pain in left foot | CPT/HCPCS: 73630; 99024 ==

== ENCOUNTER → 2022-09-08 15:09 | Outpatient (BNVA) | payer MEDICARE, SELFPAY | PROVIDERS: PCP Electrodiagnostic Medicine; Visit Provider Podiatrist Foot & Ankle Surgery | DX: M76.822 Posterior tibial tendinitis, left leg (principal) | CPT/HCPCS: 99213 ==

== ENCOUNTER → 2022-11-15 15:09 | Outpatient (BNVA) | payer MEDICARE, SELFPAY | PROVIDERS: PCP Electrodiagnostic Medicine; Visit Provider Podiatrist Foot & Ankle Surgery | DX: M76.822 Posterior tibial tendinitis, left leg (principal) | CPT/HCPCS: 99213 ==

== ENCOUNTER 2022-12-07 12:30 | Emergency (ER) | payer MEDICARE, SELFPAY ==
[2022-12-07 12:37] VITALS: BP 141/95; PULSE 85; RESP 16; TEMP 36.6; O2SAT 95; BMI 25.2
--- NOTE | 2022-12-07 12:42 | XRR_ITS ---
PROCEDURE INFORMATION: Exam: XR Chest Exam date and time: 12/07/2022 12:46 PM Age: 77 years old Clinical indication: Cough and dyspnea; Prior surgery; Surgery date: 6+ months; Surgery type: Lumpectomy; Patient HX: High BP shaking; Additional info: Dyspnea/cough TECHNIQUE: Imaging protocol: Radiologic exam of the chest. Views: 1 view. COMPARISON: CR XR chest 1V portable [id number] 06/08/2022 2:16 AM FINDINGS: Lungs: No focal peripheral lung consolidation, air bronchogram formation, or silhouette sign. Pleural spaces: No pleural effusion or pneumothorax. Heart/Mediastinum: The cardiac silhouette is not enlarged. The mediastinal contours are normal. Bones/joints: Left glenohumeral osteoarthritis. XR/XR chest 1V portable [id number] IMPRESSION: No sign of pneumonia.
--- NOTE | 2022-12-07 12:42 | CT_ITS ---
WS: [id number] CT HEAD TECHNIQUE: Noncontrast CT of the head obtained from the skullbase to the vertex. CLINICAL INFORMATION: AMS/tremor COMPARISON: CT January 17, 2022 DLP: 1075.[address] scans at [facility] use at least one of these dose optimization techniques: automated e xposure control; mA and/or kV adjustment per patient size (includes targeted exams where dose is matc hed to clinical indication); or iterative reconstruction. FINDINGS: No evidence of intracranial hemorrhage or mass effect. Ventricular system and basal cisterns are flores nt. Moderate small vessel changes with moderate parenchymal volume loss. No extra-axial fluid collect ions. No evidence of mass or mass effect. Tiny chronic lacunar infarct LEFT cerebellum. Paranasal sinuses and mastoid air cells are well aerated. .Normal visualized soft tissues. CT/CT head wo con* [id number] IMPRESSION: 1. No evidence of intracranial hemorrhage or mass effect. 2. Moderate small vessel changes with moderate parenchymal volume loss. 3. Intracranial vascular calcification. 4. No acute intracranial findings.
[2022-12-07 12:45] LABS: Glucose Point of Care 105 mg/dL (70-110)
--- NOTE | 2022-12-07 12:54 | ECG_ITS ---
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 Measurements Intervals [place] Rate: 81 P: 63 TN: 178 QRS: -9 QRSD: 100 T: 71 QT: 399 QTc: 464 Interpretive Statements SINUS RHYTHM NONSPECIFIC ST & T-WAVE ABNORMALITY Compared to ECG 06/08/2022 03:05:56 Possible ischemia no longer present T-wave abnormality still present Electronically Signed On 12-07-2022 13:19:38 CDT by Feliberto Pickens M.D. [id number]
[2022-12-07 13:03] LABS: ABG PH Result 7.47 (7.35-7.45); Alveolar-Arterial Oxygen Gradi 1.8 mmHg (5-10); Arterial Blood Gas Hematocrit 38.4 % (37-47); Base Excess ABG 5.8 mmol/L (-2.0-2.0); Blood Gas Allen Test Pos; Blood Gas Operator Identificat MONRO; Blood Gas Sample Site Radial, left; Blood Gas Sample Type Arterial; Carboxyhemoglobin < 0.0 %THgb (0.4-20.1); HCO3 ABG 29.9 mmol/L (22-26); Ionized Calcium Level - ABG 1.2 mmol/L (1.1-1.4); Methemoglobin 0.8 % (0.4-1.5); Oxygen Device ROOM AIR; Oxygen Saturation ABG 94.6; PO2 ABG 83.6 mmHg (80.0-100.0); Potassium Level - ABG 3.4 mmol/L (3.5-5.0); Total Hemoglobin 12.5 g/dL (12-16)
--- NOTE | 2022-12-07 13:48 | W.ED.GENADLT ---
HPI - General Adult General: Chief complaint: General Medical Stated complaint: shaking, high BP Time Seen by Provider: 12/07/22 12:37 Source: patient Mode of arrival: EMS History of Present Illness: 77-year-old female presents to the emergency room from [facility] with complaints of what she describes as an uncontrollable tremor. She was intermittently shaking her shoulders. She will talk through the whole episode she will even follow commands and sit up and do intentional movements Onset (ago): unknown Severity: mild Relieving factors: none Exacerbating factors: none Associated symptoms: Deny chest pain, confusion, cough, diaphoresis, decreased appetite, dyspnea, fevers/chills, headache(s), malaise, nausea, rash, palpitations, seizures, short of breath, syncope, vomiting or weakness Treatments prior to arrival: none Review of Systems Const: Denies: fever(s), chills, fatigue, malaise or diaphoresis ENMT: Denies: throat pain, ear or mastoid pain, nasal discharge or nasal congestion Card: Denies: chest pain, palpitations or syncope Resp: Denies: dyspnea GI: Denies: nausea or vomiting : Denies: flank pain, difficulty voiding, dysuria, urinary frequency or urinary urgency Skin/Breast: Denies: rash Neuro: Denies: headache(s) or confusion PFSH ED PFSH: Medical History Acid reflux Cystitis cystica Depression DM2 (diabetes mellitus, type 2) Gout High cholesterol High risk medication use Hypertension Inflammatory arthritis Neuropathy Onychodystrophy Polyuria PVD (peripheral vascular disease) Restless leg syndrome Urgency incontinence Surgical History History of carpal tunnel surgery History of hysterectomy History of knee surgery Hx of lumpectomy Hx of tonsillectomy Family History Sister Cancer Mother Diabetes Stroke Other CAD (coronary artery disease) Hypertension Rheumatoid arthritis Denies family history of Lupus Psoriatic arthritis Chronic kidney disease (CKD) Social History Smoking and tobacco status: never smoked Alcohol intake: current Alcohol intake frequency: holidays/special occasions only Alcohol type: wine Substance/Drug Use: never Household members: spouse Marital status: Current occupational status: retired Physical Exam Const: GENERAL APPEARANCE: cooperative and comfortable ORIENTATION/CONSCIOUSNESS: Yes awake HENMT: COMMON NORMALS: normocephalic, atraumatic and hearing grossly normal bilaterally HEAD & SCALP: normocephalic and atraumatic Resp: COMMON NORMALS: normal respiratory effort, No retractions, No use of accessory muscles and clear to auscultation bilaterally AUSCULTATION: clear to auscultation bilaterally Cardio: COMMON NORMALS: regular rate, regular rhythm and No murmurs present (Cardio) RATE: regular rate RHYTHM: regular rhythm GI: COMMON NORMALS: Soft to palpation and No hepatosplenomegaly present AUSCULTATION: Yes normoactive bowel sounds PALPATION: Yes Soft to palpation, No Tenderness to palpation present (GI), No Guarding due to palpation present (GI) and Yes No hepatosplenomegaly present Extremity: COMMON NORMALS: normal to inspection, capillary refill normal, no clubbing, cyanosis or edema, no calf tenderness and no pedal edema Skin: COMMON NORMALS: no rashes or lesions noted GENERAL SKIN EXAM: no rashes or lesions noted Course Vital Signs: Vital signs: Vital Signs Temperature 97.8 F 12/07/22 12:37 Pulse Rate 68 12/07/22 14:20 Respiratory Rate 16 12/07/22 14:20 Blood Pressure 164/74 12/07/22 14:20 Pulse Oximetry 93 12/07/22 14:20 Oxygen Delivery Me thod Room Air 12/07/22 14:20 MDM - General Adult Medical Decision Making Patient does not have seizure-like activity, rather she moves her shoulders intermittently. Slow rhythmic like movement. Movement changes depending on her body position and when encouraged she can stop the symptoms completely. She will also follow commands and talk during these episodes. While lying in a semireclined position her shoulders are moving generally anterior posterior when I asked her to sit up during 1 of these episodes if she begins to move the shoulders cranial to caudal. When I asked her to take deep breaths the movement stops. She is given a low-dose of Ativan and her symptoms improved Labs and imaging reviewed no significant finding. Discharge home. Blood pressure is still mildly elevated but not in an unsafe region. Discussed with her attending Dr. Chris advised him of the findings and our recommendations he concurs and will follow-up with her as an outpatient. Medical Records I reviewed the patient's medical records. Lab Data I reviewed the patient's lab results. 12/07/22 13:52 12/07/22 13:52 Radiology Impressions Chest X-Ray 12/07/22 12:42 IMPRESSION: No sign of pneumonia. Head CT 12/07/22 12:42 IMPRESSION: 1. No evidence of intracranial hemorrhage or mass effect. 2. Moderate small vessel changes with moderate parenchymal volume loss. 3. Intracranial vascular calcification. 4. No acute intracranial findings. Laboratory Results WBC 12.3 10^3/uL (4.0-10.0) H 12/07/22 13:52 RBC 4.44 10^6/uL (4.1-5.3) 12/07/22 13:52 Hgb 11.4 g/dL (11.5-15.3) L 12/07/22 13:52 Hct 37.7 % (37.0-47.0) 12/07/22 13:52 MCV 84.9 fl (81-99) 12/07/22 13:52 MCH 25.7 pg (28.0-34.0) L 12/07/22 13:52 MCHC 30.2 g/dL (30.0-36.0) 12/07/22 13:52 RDW 17.0 % (12.1-15.1) H 12/07/22 13:52 Plt Count 228 10^3/cmm (130-400) 12/07/22 13:52 MPV 10.7 fL (7.4-10.4) H 12/07/22 13:52 Neut % (Auto) 49.2 % 12/07/22 13:52 Lymph % (Auto) 42.7 % 12/07/22 13:52 [place] % (Auto) 4.8 % 12/07/22 13:52 Eos % (Auto) 2.3 % 12/07/22 13:52 Baso % (Auto) 0.6 % 12/07/22 13:52 Neut # (Auto) 6.07 10^3/uL (1.8-7.7) 12/07/22 13:52 Lymph # (Auto) 5.3 10^3/uL (0.8-4.8) H 12/07/22 13:52 [place] # (Auto) 0.6 10^3/uL (0.2-0.9) 12/07/22 13:52 Eos # (Auto) 0.3 10^3/uL (0.0-0.8) 12/07/22 13:52 Baso # (Auto) 0.1 10^3/uL (0.0-0.1) 12/07/22 13:52 Nucleated RBC % (auto) 0 % 12/07/22 13:52 Nucleated RBCs # 0.0 /100WBC 12/07/22 13:52 Specimen Type Arterial 12/07/22 12:50 Sample Site Radial, left 12/07/22 12:50 ABG pH 7.47 (7.35-7.45) H 12/07/22 12:50 ABG pCO2 41.0 mmHg (35-45) 12/07/22 12:50 ABG pO2 83.6 mmHg (80.0-100.0) 12/07/22 12:50 ABG HCO3 29.9 mmol/L (22-26) H 12/07/22 12:50 ABG O2 Saturation 94.6 12/07/22 12:50 ABG Base Excess 5.8 mmol/L (-2.0-2.0) H 12/07/22 12:50 Adrian Test Pos 12/07/22 12:50 A-a O2 Gradient 1.8 mmHg (5-10) L 12/07/22 12:50 Hematocrit 38.4 % (37-47) 12/07/22 12:50 Hgb O2 Saturation 94.0 % (95-100) L 12/07/22 12:50 Carboxyhemoglobin < 0.0 %THgb (0.4-20.1) L 12/07/22 12:50 Methemoglobin 0.8 % (0.4-1.5) 12/07/22 12:50 Total Hemoglobin 12.5 g/dL (12-16) 12/07/22 12:50 Sodium 145.0 mmol/L (131-143) H 12/07/22 12:50 Potassium 3.4 mmol/L (3.5-5.0) L 12/07/22 12:50 Glucose 114.0 mg/dL (70-115) 12/07/22 12:50 Ionized Calcium 1.2 mmol/L (1.1-1.4) 12/07/22 12:50 O2 Delivery Device Room air 12/07/22 12:50 FiO2 21.0 % 12/07/22 12:50 Tip Banding Machine Operator ID Senthil 12/07/22 12:50 Sodium 141 mmol/L (136-145) 12/07/22 13:52 Potassium 3.4 mmol/L (3.5-5.1) L 12/07/22 13:52 Chloride 101 mmol/L (98-107) 12/07/22 13:52 Carbon Dioxide 27 mmol/L (22-29) 12/07/22 13:52 Anion Gap 16.4 (5-19) 12/07/22 13:52 BUN 22 mg/dL (8-23) 12/07/22 13:52 Creatinine 1.2 mg/dL (0.5-0.9) H 12/07/22 13:52 GFR Calculation Not Reportable 12/07/22 13:52 Glucose 96 mg/dL (65-115) 12/07/22 13:52 POC Glucose 105 mg/dL (70-110) 12/07/22 12:40 Calculated Osmolality 295 mOsm/kg (285-295) 12/07/22 13:52 Lactic Acid 1.1 mmol/L (0.5-2.2) 12/07/22 13:52 Calcium 9.5 mg/dL (8.5-10.5) 12/07/22 13:52 Magnesium 2.0 mg/dL (1.7-2.3) 12/07/22 13:52 Total Bilirubin 0.3 mg/dL (0.15-1.2) 12/07/22 13:52 AST 15 U/L (0-32) 12/07/22 13:52 ALT < 5 U/L (0-33) 12/07/22 13:52 Alkaline Phosphatase 110 U/L (35-105) H 12/07/22 13:52 Creatine Kinase 80 U/L (26-192) 12/07/22 13:52 Troponin T Baseline 11 ng/L (0-10) H 12/07/22 13:52 Troponin T 120 Minute 11.22 ng/L (0-10) H 12/07/22 15:46 Delta Troponin T 0.22 ABS# (0-10) 12/07/22 15:46 Total Protein 6.9 g/dL (6.6-8.7) 12/07/22 13:52 Albumin 4.1 g/dL (3.5-5.2) 12/07/22 13:52 Globulin 2.8 g/dL (1.3-4.6) 12/07/22 13:52 Urine Color Yellow (Yellow) 12/07/22 15:38 Urine Appearance Sl hazy (CLEAR) A 12/07/22 15:38 Urine pH 7 (5-7) 12/07/22 15:38 Ur Specific [place] 1.005 (1.005-1.030) 12/07/22 15:38 Urine Protein Trace (Negative) 12/07/22 15:38 Urine Glucose (UA) Norm (Normal) 12/07/22 15:38 Urine Ketones Negative (Negative) 12/07/22 15:38 Urine Blood Neg (Negative) 12/07/22 15:38 Urine Nitrate Negative (Negative) 12/07/22 15:38 Urine Bilirubin Neg (Negative) 12/07/22 15:38 Urine Urobilinogen Norm mg/dL (Negative) 12/07/22 15:38 Ur Leukocyte Esterase Negative (Negative) 12/07/22 15:38 Urine RBC Rare /hpf (0-2) 12/07/22 15:38 Urine WBC 5-10 /hpf (0-5) H 12/07/22 15:38 Ur Squamous Epith Cells 40-55 /hpf (0-5) H 12/07/22 15:38 Amorphous Sediment Not Reportable 12/07/22 15:38 Urine Bacteria 1+ /hpf (NONE) H 12/07/22 15:38 Urine Yeast 1+ /hpf H 12/07/22 15:38 Discharge Plan Discharge Patient Disposition: Home Clinical Impression: Conversion disorder Condition: Stable Prescriptions: New Ativan 2 mg tablet 2 mg PO Q8H PRN (Reason: anxiety) Qty: 10 0RF No Action amlodipine 10 mg tablet 10 mg PO DAILY esomeprazole magnesium 40 mg capsule,delayed release(DR/EC) 40 mg PO DAILY carbidopa-levodopa 25-100 mg tablet 1 tab PO TID pregabalin 75 mg capsule 75 mg PO TID oxycodone-acetaminophen [Percocet] 5-325 mg tablet 1 tab PO Q8H PRN (Reason: pain) 7 Days Qty: 21 0RF cyanocobalamin (vitamin B-12) [Vitamin B-12] 1,000 mcg Tablet Extended Release 1,000 mcg PO DAILY aspirin [Sherly Low Dose Aspirin] 81 mg Tablet,Delayed Release (Dr/Ec) 81 mg PO DAILY furosemide 40 mg Tablet 40 mg PO BID atorvastatin 20 mg tablet 20 mg PO DAILY allopurinol 100 mg tablet 100 mg PO DAILY meloxicam 7.5 mg tablet 7.5 mg PO DAILY prednisolone acetate 1 % drops,suspension 1 drp ophthalmic (eye) QID hydralazine 100 mg tablet 100 mg PO TID neomycin-polymyxin B-dexameth 3.5 mg/g-10,000 unit/g-0.1 % ointment 1 applic ophthalmic (eye) Q2H Probiotic 10 billion cell Capsule 10,000 mmu cells PO DAILY Discharge Orders: Discharge ED (Routine); Ordered 12/07/22 Ordered By: Vinny Gamboa Referrals: Bairon Chris DO [Primary Care Provider] - Discharge Diet: Usual diet Discharge Activity: Increase activity as tolerated Patient Instructions: Conversion Disorder (ED), Opioid Safety, Pain Management Activity Restrictions/Additional Instructions: Follow-up with Dr. Chris within the next 7 to 14 days Coding Level of Care Code ED Guardian Ad Litem for Shanika Haskins
[2022-12-07] MEDS: LORazepam 2 mg/mL INJ 1 mL 1 MG IVP (13:58)
[2022-12-07 14:05] LABS: Basophils # 0.1 10^3/uL (0.0-0.1); Basophils % 0.6 %; Eosinophils # 0.3 10^3/uL (0.0-0.8); Eosinophils % 2.3 %; Hematocrit 37.7 % (37.0-47.0); Hemoglobin 11.4 g/dL (11.5-15.3); Lymphocytes # 5.3 10^3/uL (0.8-4.8); Lymphocytes % 42.7 %; Mean Corpuscular HGB Conc 30.2 g/dL (30.0-36.0); Mean Corpuscular Hemoglobin 25.7 pg (28.0-34.0); Mean Corpuscular Volume 84.9 fl (81-99); Mean Platelet Volume 10.7 fL (7.4-10.4); Monocytes # 0.6 10^3/uL (0.2-0.9); Monocytes % 4.8 %; Neutrophils # 6.07 10^3/uL (1.8-7.7); Neutrophils % 49.2 %; Nucleated Red Blood Cells % 0 %; Platelet Count 228 10^3/cmm (130-400); Red Blood Count 4.44 10^6/uL (4.1-5.3); White Blood Count 12.3 10^3/uL (4.0-10.0)
[2022-12-07 14:20] VITALS: BP 164/74; PULSE 68; RESP 16; O2SAT 93
[2022-12-07 14:23] LABS: Troponin(5th) Baseline 11 ng/L (0-10)
[2022-12-07 14:25] LABS: Alanine Aminotransferase < 5 U/L (0-33); Albumin Level 4.1 g/dL (3.5-5.2); Alkaline Phosphatase 110 U/L (35-105); Aspartate Amino Transferase 15 U/L (0-32); Blood Urea Nitrogen 22 mg/dL (8-23); Calcium 9.5 mg/dL (8.5-10.5); Carbon Dioxide 27 mmol/L (22-29); Chloride 101 mmol/L (98-107); Creatine Phosphokinase 80 U/L (26-192); Globulin 2.8 g/dL (1.3-4.6); Glucose 96 mg/dL (65-115); Osmolality Calculated 295 mOsm/kg (285-295); Sodium 141 mmol/L (136-145); Total Bilirubin 0.3 mg/dL (0.15-1.2); Total Protein 6.9 g/dL (6.6-8.7)
[2022-12-07 14:26] LABS: Lactic Sepsis W/Reflex 1.1 mmol/L (0.5-2.2)
[2022-12-07 14:28] LABS: Anion Gap 16.4 (5-19); Potassium 3.4 mmol/L (3.5-5.1)
--- NOTE | 2022-12-07 14:42 | ECG_ITS ---
[facility] Test Date: 2022-12-07 Pat Name: Vania Price Department: Room: Gender: Female Laboratory Chemist: : 1945 Requested By: Vinny Joseph Order Number: [id number] Reading MD: Feliberto Pickens M.D. Measurements Intervals [place] Rate: 65 P: 15 [place]: 185 QRS: 83 QRSD: 100 T: -34 QT: 428 QTc: 448 Interpretive Statements SINUS RHYTHM MODERATE T-WAVE ABNORMALITY, CONSIDER INFERIOR ISCHEMIA [-0.1+ mV T-WAVE IN II/aVF] Compared to ECG 12/07/2022 12:54:07 Possible ischemia now present T-wave abnormality still present Electronically Signed On 12-07-2022 19:48:29 CDT by Feliberto Pickens M.D. [email or web address] medical [email or web address], [id number]
[2022-12-07 16:05] LABS: Urine Appearance SL Hazy (CLEAR); Urine Color Yellow (Yellow); pH Urine 7 (5-7)
[2022-12-07 16:06] LABS: Add Urine Microscopic? YES; Bilirubin Urine Neg (Negative); Blood Urine Neg (Negative); Glucose Urine UA Norm (Normal); Ketones Urine Negative (Negative); Leukocyte Esterase Urine Negative (Negative); Nitrate Urine Negative (Negative); Protein Urine Trace (Negative); Specific Gravity, Urine 1.005 (1.005-1.030); Urobilinogen Urine Norm (Negative)
[2022-12-07 16:11] LABS: Troponin 5 2HR 11.22 ng/L (0-10)
[2022-12-07 16:12] LABS: Troponin 5 2HR Delta 0.22 ABS# (0-10)
[2022-12-07 16:16] LABS: Bacteria Urine 1+ /hpf; RBC Urine RARE /hpf (0-2); Squamous Epithelial Cell Urine 40-55 /hpf (0-5)
[2022-12-07 16:17] LABS: Add Urine Culture? Yes
== END 2022-12-07 16:22 | disposition home or self-care (01) ==
PROVIDERS: Emergency Provider Family Medicine; PCP Electrodiagnostic Medicine
DX: F44.4 Conversion disorder with motor symptom or deficit (principal)
CPT/HCPCS: 36415; 36416; 36600; 70450; 71045; 80051; 80053; 81001; 82330; 82550; 82805; 82962; 83605; 83735; 84484; 85025; 87086; 93005; 96374; 99285; J2060

== ENCOUNTER → 2023-02-28 14:20 | Outpatient (BNVA) | payer MEDICARE, SELFPAY | PROVIDERS: PCP Electrodiagnostic Medicine; Visit Provider Surgery | DX: K64.9 Unspecified hemorrhoids (principal); Z86.010 Personal history of colon polyps | CPT/HCPCS: 99203 ==

== ENCOUNTER 2023-03-03 06:49 | Day surgery (SDC) | payer MEDICARE, SELFPAY ==
[2023-03-02 08:08] VITALS: BMI 25.8
--- NOTE | 2023-03-03 06:55 | W.PM.OPSUD ---
Surgery/Procedure H&P Update DATE OF PROCEDURE: March 03, 2023 DATE H&P PERFORMED: 02/28/23 H&P UPDATE INFORMATION: I have reviewed H&P completed within last 30 days, I have examined patient prior to procedure and No changes to prior documentation PLANNED PROCEDURE: Operation Date: 03/03/23 07:45 Proposed Procedures p Colonoscopy 91148,K64.9,Z86.010(Not Applicable) - Víctor Clarke, DO
[2023-03-03 07:05] VITALS: BP 164/69; PULSE 70; RESP 18; TEMP 36.2; O2SAT 96
--- NOTE | 2023-03-03 07:12 | P.ANESASSM_ITS ---
Pre-Anesthetic Assessment Height/Weight: Height 1.73 m Weight 77.111 kg Temp Pulse Resp BP Pulse Ox O2 Del Method 97.1 F L 70 18 164/69 96 Room Air 03/03/23 07:05 03/03/23 07:05 03/03/23 07:05 03/03/23 07:05 03/03/23 07:05 03/03/23 07:05 Operation Date: 03/03/23 07:45 Proposed Procedures p Colonoscopy 95141,K64.9,Z86.010(Not Applicable) - Víctor Clarke DO Familial anesthetic complications: None Was Beta Annika taken within 24 hours: N/A Was Clonidine taken within 24 hours: N/A Last intake: Intake Last Liquid Date 03/02/23 Last Liquid Time 22:00 Last Solid Date 03/01/23 Last Solid Time 21:00 Social No alcohol and No tobacco Exam alert, oriented x 3, clear to auscultation bilaterally and regular rate & rhythm Airway Mallampati: Class II Dentition: false CV/HEM Hypertension and Peripheral Vascular Disease GI Gastroesophageal Reflux [place] [facility] [place] Osteoarthritis/DJD and Rheumatoid Arthritis Anesthetic Plan ASA status: 2 Anesthesia: MAC Risk of > 500 ml blood loss (7ml/kg in children): No Medications/Allergies Home Medications Medication Instructions Recorded Confirmed Last Taken Type carbidopa 25 mg-levodopa 100 mg 1 tab PO TID 08/20/19 03/02/23 03/03/23 History tablet esomeprazole magnesium 40 mg 40 mg PO DAILY 08/20/19 03/02/23 03/02/23 History capsule,delayed release pregabalin 75 mg capsule 75 mg PO TID 08/20/19 03/02/23 03/02/23 History aspirin 81 mg tablet,delayed 81 mg PO DAILY 03/08/20 03/02/23 03/01/23 History release (Sherly Low Dose Aspirin) cyanocobalamin (vitamin B-12) 1,000 mcg PO DAILY 03/08/20 03/02/23 03/02/23 History 1,000 mcg tablet,extended release (Vitamin B-12 ER) amlodipine 10 mg tablet 10 mg PO DAILY 04/07/20 03/02/23 03/03/23 History furosemide 40 mg tablet 40 mg PO BID 01/17/22 03/02/23 03/02/23 History Lactobacillus acidophilus 10 10,000 mmu cells PO DAILY 12/07/22 03/02/23 03/02/23 History billion cell capsule (Probiotic) allopurinol 100 mg tablet 100 mg PO DAILY 12/07/22 03/02/23 03/02/23 History atorvastatin 20 mg tablet 20 mg PO DAILY 12/07/22 03/02/23 03/02/23 History hydralazine 100 mg tablet 100 mg PO TID 12/07/22 03/02/23 03/02/23 History meloxicam 7.5 mg tablet 7.5 mg PO DAILY 12/07/22 03/02/23 03/02/23 History neomycin 3.5 mg/g-polymyxin B 1 applic ophthalmic (eye) Q2H 12/07/22 03/02/23 03/01/23 History 10,000 unit/g-dexameth 0.1 % eye oint prednisolone acetate 1 % eye 1 drp ophthalmic (eye) QID 12/07/22 03/02/23 03/01/23 History drops,suspension hydrocortisone 2.5 % topical cream 1 applic AL QID PRN Hemorrhoids 03/02/23 03/03/23 Unknown History with perineal applicator (Anusol-HC) Allergies Allergy/AdvReac Type Severity Reaction Status Date / Time estrogens, conjugated Allergy emotional Verified 03/02/23 08:03 [From Premarin] [facility] Anesthesia Medical History (Updated 02/28/23 @ 14:45 by Víctor Clarke DO) Acid reflux Cystitis cystica Depression DM2 (diabetes mellitus, type 2) Gout High cholesterol High risk medication use Hypertension Inflammatory arthritis Neuropathy Onychodystrophy Polyuria PVD (peripheral vascular disease) Restless leg syndrome Urgency incontinence Surgical History (Updated 02/28/23 @ 14:45 by Víctor Clarke DO) History of carpal tunnel surgery History of hysterectomy History of knee surgery Hx of colonoscopy Hx of lumpectomy Hx of tonsillectomy Family History Sister Cancer Mother Diabetes Stroke Other CAD (coronary artery disease) Hypertension Rheumatoid arthritis Denies family history of Lupus Psoriatic arthritis Chronic kidney disease (CKD) Social History Smoking and tobacco status: never smoked Alcohol intake: current Alcohol intake frequency: holidays/special occasions only Alcohol type: wine Substance/Drug Use: never Household members: spouse Marital status: Current occupational status: retired Data Anesthesia Cardiac Studies: No Data to Display
[2023-03-03] MEDS: sodium chloride 0.9% 1,000 ML 30 ML IV (07:16)
[2023-03-03 08:25] VITALS: BP 123/79; PULSE 88; RESP 20; TEMP 36.1; O2SAT 94
[2023-03-03 08:35] VITALS: BP 128/71; PULSE 86; RESP 18; O2SAT 97
[2023-03-03 08:43] VITALS: BP 136/77; PULSE 88; RESP 16; O2SAT 95
--- NOTE | 2023-03-03 09:00 | ANE.PACU2 ---
Inpatient post-anesthesia follow up: Airway intact: Yes Vital signs: Temperature 97 F Pulse Rate 88 Respiratory Rate 16 Blood Pressure 136/77 Pulse Oximetry 95 Oxygen Delivery Me thod Room Air Oxygen Flow Rate 3 Fraction of Inspir ed Oxygen Hydration adequate: Yes Nausea and vomiting: No Pain level: 1 Mental status: Baseline
== END 2023-03-03 09:00 | disposition home or self-care (01) ==
PROVIDERS: PCP Electrodiagnostic Medicine; Visit Provider Surgery
PROC: 0DJD8ZZ Inspection of Lower Intestinal Tract, Via Natural or Artificial Opening Endoscopic (ICD-10-PCS; CPT 45378; principal; 2023-03-03 07:45)
DX: Z12.11 Encounter for screening for malignant neoplasm of colon (principal); Z86.010 Personal history of colon polyps; R15.9 Full incontinence of feces; K59.00 Constipation, unspecified; K64.8 Other hemorrhoids; D12.3 Benign neoplasm of transverse colon; I10 Essential (primary) hypertension; K21.9 Gastro-esophageal reflux disease without esophagitis; M19.90 Unspecified osteoarthritis, unspecified site; M06.9 Rheumatoid arthritis, unspecified; F32.A Depression, unspecified; E11.40 Type 2 diabetes mellitus with diabetic neuropathy, unspecified
CPT/HCPCS: 45385; 88305; J2704; J3490; J7030

== ENCOUNTER → 2023-03-28 11:22 | Outpatient (BNVA) | payer MEDICARE, SELFPAY | PROVIDERS: PCP Electrodiagnostic Medicine; Visit Provider Surgery | DX: Z09 Encounter for follow-up examination after completed treatment for conditions other than malignant neoplasm (principal); K64.8 Other hemorrhoids; R15.9 Full incontinence of feces | CPT/HCPCS: 99213 ==

== ENCOUNTER 2023-04-18 15:17 | Outpatient (CLI) | payer MEDICARE, SELFPAY ==
--- NOTE | 2023-04-18 15:28 | MM_ITS ---
WS: [id number] VIEWS: MLO and CC views both breasts. 3D digital tomosynthesis is also included in this exam. Comparison made with prior exam of 01/24/2011, 03/28/2013, 04/03/2014, 08/12/2015, 09/18/2018, 11/30/2020.. Findings: There was no sign of mass, architectural distortion or suspicious calcification in either breast. Sta ble appearing nodular densities in both breasts. The breasts are extremely dense which lowers the sen sitivity of mammography. Impression: MM/[place] [id number] BI-RADS: 2-Benign finding. FOLLOW-UP: 1 Year Follow-up This mammogram was also analyzed by the Computer Aided Detection System R2 Imag e Apple Sorter.
== END 2023-04-18 15:18 | disposition home or self-care (01) ==
LOC: RAD 15:18
PROVIDERS: PCP Electrodiagnostic Medicine; Visit Provider Electrodiagnostic Medicine
DX: Z12.31 Encounter for screening mammogram for malignant neoplasm of breast (principal)
CPT/HCPCS: 77063; 77067

== ENCOUNTER → 2023-06-06 09:54 | Outpatient (BNVA) | payer MEDICARE, SELFPAY | PROVIDERS: PCP Electrodiagnostic Medicine; Visit Provider Podiatrist Foot & Ankle Surgery | DX: G57.92 Unspecified mononeuropathy of left lower limb | CPT/HCPCS: 64455; J1100; J3490 ==

== ENCOUNTER → 2023-09-12 10:25 | Outpatient (BNVA) | payer MEDICARE, SELFPAY | PROVIDERS: PCP Electrodiagnostic Medicine; Visit Provider Podiatrist Foot & Ankle Surgery | DX: G57.92 Unspecified mononeuropathy of left lower limb | CPT/HCPCS: 99213 ==

== ENCOUNTER 2024-04-25 10:54 | Outpatient (CLI) | payer MEDICARE, SELFPAY ==
--- NOTE | 2024-04-25 11:01 | MM_ITS ---
WS: [id number] Bilateral screening 3D tomosynthesis digital mammogram, 04/25/2024 11:03 AM Clinical Data: SCREENING Comparison: 04/18/2023, 11/30/2020, 09/18/2018, 09/09/2015, 08/12/2015, 04/03/2014, 03/28/2013, 01/24/2011, , 04/12/2007. Findings: No spiculated masses or clustered calcifications are seen. There are no secondary signs of carcinoma . There are lymph nodes in both axilla. MM/MM scr BI tomosynthesis [id number] Impression: Negative bilateral mammogram unchanged. Recommend annual screening mammograms. BIRADS: 1 - Negative FOLLOW UP: 1 Year Follow-up DENSITY: The breasts are extremely dense, which lowers the sensitivity of mammo graphy. The CAD cashier or checker stock clerk was used
== END 2024-04-25 10:55 | disposition home or self-care (01) ==
PROVIDERS: PCP Electrodiagnostic Medicine; Visit Provider Electrodiagnostic Medicine
DX: Z12.31 Encounter for screening mammogram for malignant neoplasm of breast (principal)
CPT/HCPCS: 77063; 77067

== ENCOUNTER → 2024-06-09 12:45 | Outpatient (BNVA) | payer MEDICARE, SELFPAY | PROVIDERS: PCP Electrodiagnostic Medicine | DX: R39.9 Unspecified symptoms and signs involving the genitourinary system (principal) | CPT/HCPCS: 81000; 87086 ==

== ENCOUNTER 2024-07-20 10:07 | Emergency (ER) | payer MEDICARE, SELFPAY ==
[2024-07-20 10:16] VITALS: BP 160/70; PULSE 69; RESP 17; TEMP 36.6; O2SAT 94; BMI 29.2
--- NOTE | 2024-07-20 11:15 | CTR_ITS ---
PROCEDURE INFORMATION: Exam: CT Head Without Contrast Exam date and time: 07/20/2024 11:33 AM Age: 79 years old Clinical indication: Dizziness; Additional info: Convulsions TECHNIQUE: Imaging protocol: Computed tomography of the head without contrast. Radiation optimization: All CT scans at this facility use at least one of these dose optimization techniques: automated exposure control; mA and/or kV adjustment per patient size (includes targeted exams where dose is matched to clinical indication); or iterative reconstruction. COMPARISON: CT head wo con* [id number] 12/07/2022 2:40 PM RADIATION DOSE METRICS: Total DLP (mGy-cm): 1098.58 FINDINGS: Brain: There is no mass effect, midline shift, acute hemorrhage, extra-axial fluid collection or acute lobar infarct. Patchy hemispheric white matter hypodensity likely represents chronic microvascular ischemic change. Cerebral ventricles: No ventriculomegaly. Paranasal sinuses: Visualized sinuses are unremarkable. No fluid levels. Mastoid air cells: Visualized mastoid air cells are well aerated. Orbital cavities: Patient is post bilateral cataract surgery. Bones: Unremarkable. No acute fracture. Soft tissues: Unremarkable. CT/CT head wo con* [id number] IMPRESSION: No acute intracranial process.
--- NOTE | 2024-07-20 11:55 | ED_ITS ---
HPI - General Adult 2 General: Chief complaint: General Medical Stated complaint: excessive shaking Time Seen by Provider: 07/20/24 10:53 History of Present Illness: Patient is a nontoxic 79-year-old female who presents to the ER with complaint of uncontrollable shaking and somewhat convulsions of her arms and legs since this morning. She was seen in the ER about 18 months ago with the exact same complaint and history. She states her symptoms stopped after she was given some IV fluids at that evaluation and she has not had any recurrence of symptoms up until this morning. She woke up this morning and felt fine however around 9 AM the son states that he went by to check on her and noticed that she was having the symptoms. She otherwise has no complaints and denies any specific pain or discomfort. She denies any recent illness. She reports being compliant with her medications. It was felt she had conversion disorder with her previous episode. Associated symptoms: Deny chest pain, dyspnea, headache(s), nausea, rash, palpitations or vomiting Related Data Home Medications Medication Instructions Recorded Confirmed carbidopa 25 mg-levodopa 100 mg 1 tab PO TID 08/20/19 07/20/24 tablet esomeprazole magnesium 40 mg 40 mg PO DAILY 08/20/19 07/20/24 capsule,delayed release pregabalin 75 mg capsule 75 mg PO TID 08/20/19 07/20/24 aspirin 81 mg tablet,delayed 81 mg PO DAILY 03/08/20 07/20/24 release (Sherly Low Dose Aspirin) cyanocobalamin (vitamin B-12) 1,000 mcg PO DAILY 03/08/20 07/20/24 1,000 mcg tablet,extended release (Vitamin B-12 ER) amlodipine 10 mg tablet 10 mg PO DAILY 04/07/20 07/20/24 furosemide 40 mg tablet 40 mg PO BID 01/17/22 07/20/24 Lactobacillus acidophilus 10 10,000 mmu cells PO DAILY 12/07/22 07/20/24 billion cell capsule (Probiotic) allopurinol 100 mg tablet 100 mg PO DAILY 12/07/22 07/20/24 atorvastatin 20 mg tablet 20 mg PO DAILY 12/07/22 07/20/24 hydralazine 100 mg tablet 100 mg PO TID 12/07/22 07/20/24 meloxicam 7.5 mg tablet 7.5 mg PO DAILY 12/07/22 07/20/24 latanoprost 0.005 % eye drops 1 drp ophthalmic (eye) QPM 07/20/24 07/20/24 Previous Rx's Medication Instructions Recorded phenazopyridine 200 mg tablet 200 mg PO Q8H PRN pain 3 days #9 06/09/24 (Pyridium) tabs Allergies Allergy/AdvReac Type Severity Reaction Status Date / Time estrogens, conjugated Allergy emotional Verified 06/09/24 12:05 [From Premarin] Review of Systems 2 Const: Denies: fever(s) or chills Card: Denies: chest pain or palpitations Resp: Denies: dyspnea GI: Denies: abdominal pain, nausea, vomiting or hematemesis Skin/Breast: Denies: rash Neuro: Reports: dizziness; Denies: headache(s) PFSH ED 2 PFSH: Medical History High risk medication use Inflammatory arthritis Depression Urgency incontinence Polyuria DM2 (diabetes mellitus, type 2) Onychodystrophy PVD (peripheral vascular disease) Gout Cystitis cystica Hypertension High cholesterol Restless leg syndrome Neuropathy Acid reflux Surgical History Hx of colonoscopy Hx of lumpectomy Hx of tonsillectomy History of hysterectomy History of knee surgery History of carpal tunnel surgery Family History Sister Cancer Mother Diabetes Stroke Other CAD (coronary artery disease) Hypertension Rheumatoid arthritis Denies family history of Lupus Psoriatic arthritis Chronic kidney disease (CKD) Social History Smoking and tobacco/nicotine status: unknown if used tobacco/nicotine Alcohol intake: current Alcohol intake frequency: holidays/special occasions only Alcohol type: wine Substance/Drug Use: never Household members: spouse Marital status: Current occupational status: retired Physical Exam 2 Const: COMMON NORMALS: no acute distress, average body habitus, alert and well nourished GENERAL APPEARANCE: cooperative ORIENTATION/CONSCIOUSNESS: Yes awake OTHER: Patient is awake alert and conversant 79-year-old female in no acute distress who was initially not having any shaking event snips until I walked into the room and then began having some generalized shaking of her arms and legs. These movements would extinguish with distraction. HENMT: COMMON NORMALS: normocephalic and atraumatic HEAD & SCALP: n ormocephalic and atraumatic MOUTH: Normal oral and palatal mucosa present Eye: COMMON NORMALS: Equal, round and reactive pupils present, EOMs intact bilaterally, conjunctivae normal and no scleral icterus CONJUNCTIVA: Yes conjunctivae normal PUPIL: Yes Equal, round and reactive pupils present Neck/C-Spine: GENERAL: Yes normal visual inspection Resp: COMMON NORMALS: normal respiratory effort, No retractions and No use of accessory muscles Cardio: COMMON NORMALS: regular rate, regular rhythm and Peripheral pulses 2+ throughout RATE: regular rate RHYTHM: regular rhythm PERIPHERAL PULSES: Peripheral pulses 2+ throughout GI: COMMON NORMALS: Soft to palpation and non-tender PALPATION: Yes Soft to palpation Extremity: COMMON NORMALS: normal to inspection, full ROM and no pedal edema Neuro: COMMON NORMALS: CN's II-XII intact bilaterally and moves all extremities SENSORIUM/ORIENTATION: Yes alert OTHER: Patient is awake alert. She is conversant. When I first walked by the room she did not have any shaking or convulsions however immediately upon walking in the room she began having generalized shaking of bilateral upper and lower extremities with this rhythmic motion. She was conversant throughout these events. Her convulsion would completely extinguish if she was significantly distraction with motor task such as flexion and extension of the upper extremities. If she had isolated motor task such as [id number] she would have recurrence of shaking that was primarily associated with the extremity of purposeful movement. She had equal strength in all 4 extremities. Psych: COMMON NORMALS: mental status grossly normal and cooperative Skin: COMMON NORMALS: no rashes or lesions noted GENERAL SKIN EXAM: no rashes or lesions noted Course 2 Vital Signs: Vital signs: Vital Signs Temperature 97.9 F 07/20/24 10:16 Pulse Rate 58 L 07/20/24 12:38 Respiratory Rate 16 07/20/24 12:38 Blood Pressure 148/62 07/20/24 12:38 Pulse Oximetry 95 07/20/24 12:38 Oxygen Delivery Me thod Room Air 07/20/24 12:38 MDM - General Adult Medical Decision Making Patient is a nontoxic 79-year-old female who presents to the ER with report of generalized shaking of her upper and lower extremities that was uncontrollable since around 9:00 this morning. Interestingly, she had an exact similar episode about a year and a half ago with unremarkable workup that resolved after receiving some IV fluids in the ER. Son states that she does not drink much fluids at home and he is constantly trying to get her to drink more fluids. He states she only drinks soda and coffee. Patient has a nonfocal neurologic exam other than extinguishing shaking of her arms and legs with distraction. Head CT is negative for acute findings. Basic labs including a CBC and CMP are unremarkable other than mild hypokalemia 3.3. Patient was given a liter of IV fluids and a dose of Ativan. The son states she has not had any shaking in the last 45 minutes to an hour other than if he begins talking to her about her shaking she will have a brief moment of it. We discussed her differential diagnosis. The son is comfortable with discharge and have recommended follow-up with outpatient neurology and mental health services. Son is in agreement and again is comfortable discharge and was provided return precautions. Lab Data 07/20/24 12:16 07/20/24 12:[address] 07/20/24 11:15 IMPRESSION: No acute intracranial process. Laboratory Results WBC 14.34 10^3/uL (3.29-11.43) H 07/20/24 12:16 RBC 4.72 10^6/uL (3.85-5.65) 07/20/24 12:16 Hgb 12.50 g/dL (11.27-16.99) 07/20/24 12:16 Hct 41.1 % (36-47) 07/20/24 12:16 MCV 87.1 fl (85-98) 07/20/24 12:16 MCH 26.5 pg (27-33) L 07/20/24 12:16 MCHC 30.4 g/dL (30-55) 07/20/24 12:16 RDW 17.0 % (12.1-15.1) H 07/20/24 12:16 Plt Count 203 10^3/cmm (157-399) 07/20/24 12:16 MPV 11.0 fL (7.4-10.4) H 07/20/24 12:16 Neut % (Auto) 50.8 % 07/20/24 12:16 Lymph % (Auto) 43.4 % 07/20/24 12:16 [place] % (Auto) 3.2 % 07/20/24 12:16 Eos % (Auto) 1.7 % 07/20/24 12:16 Baso % (Auto) 0.5 % 07/20/24 12:16 Neut # (Auto) 7.28 10^3/uL (1.8-7.7) 07/20/24 12:16 Lymph # (Auto) 6.2 10^3/uL (0.8-4.8) H 07/20/24 12:16 [place] # (Auto) 0.5 10^3/uL (0.2-0.9) 07/20/24 12:16 Eos # (Auto) 0.3 10^3/uL (0.0-0.8) 07/20/24 12:16 Baso # (Auto) 0.1 10^3/uL (0.0-0.1) 07/20/24 12:16 Nucleated RBC % (auto) 0 % 07/20/24 12:16 Nucleated RBCs # 0.0 /100WBC 07/20/24 12:16 Sodium 143 mmol/L (136-145) 07/20/24 12:16 Potassium 3.3 mmol/L (3.5-5.1) L 07/20/24 12:16 Chloride 103 mmol/L (98-107) 07/20/24 12:16 Carbon Dioxide 29 mmol/L (22-29) 07/20/24 12:16 Anion Gap 14.3 (5-19) 07/20/24 12:16 BUN 25 mg/dL (8-23) H 07/20/24 12:16 Creatinine 1.0 mg/dL (0.5-0.9) H 07/20/24 12:16 GFR Calculation Not Reportable 07/20/24 12:16 Glucose 110 mg/dL (65-115) 07/20/24 12:16 Calculated Osmolality 301 mOsm/kg (285-295) H 07/20/24 12:16 Calcium 9.6 mg/dL (8.5-10.5) 07/20/24 12:16 Phosphorus 3.3 mg/dL (2.5-4.5) 07/20/24 12:16 Magnesium 2.1 mg/dL (1.7-2.3) 07/20/24 12:16 Total Bilirubin 0.3 mg/dL (0.15-1.2) 07/20/24 12:16 AST 12 U/L (0-32) 07/20/24 12:16 ALT < 5 U/L (0-33) 07/20/24 12:16 Alkaline Phosphatase 117 U/L (35-105) H 07/20/24 12:16 Total Protein 7.4 g/dL (6.6-8.7) 07/20/24 12:16 Albumin 4.5 g/dL (3.5-5.2) 07/20/24 12:16 Globulin 2.9 g/dL (1.3-4.6) 07/20/24 12:16 TSH 1.45 uIU/mL (0.27-4.20) 07/20/24 12:16 Urine Color Yellow (Yellow) 07/20/24 12:00 Urine Appearance Clear (CLEAR) 07/20/24 12:00 Urine pH 6.0 (5-7) 07/20/24 12:00 Ur Specific [place] 1.010 (1.005-1.030) 07/20/24 12:00 Urine Protein Trace (Negative) A 07/20/24 12:00 Urine Glucose (UA) Negative (Normal) 07/20/24 12:00 Urine Ketones Negative (Negative) 07/20/24 12:00 Urine Blood Negative (Negative) 07/20/24 12:00 Urine Nitrate Negative (Negative) 07/20/24 12:00 Urine Bilirubin Negative (Negative) 07/20/24 12:00 Urine Urobilinogen 0.2 mg/dL (Negative) 07/20/24 12:00 Ur Leukocyte Esterase Negative (Negative) 07/20/24 12:00 Urine RBC 0-2 /hpf (0-2) 07/20/24 12:00 Urine WBC 0-5 /hpf (0-5) 07/20/24 12:00 Ur Squamous Epith Cells 0-5 /hpf (0-5) 07/20/24 12:00 Amorphous Sediment Not Reportable 07/20/24 12:00 Urine Bacteria None seen /hpf (NONE) 07/20/24 12:00 Hyaline Casts 2.05 /lpf 07/20/24 12:00 All radiology interpretation(s) finalized by discharge Discharge Plan Discharge Patient Disposition: Home Clinical Impression: Episode of shaking Condition: Stable Prescriptions: No Action amlodipine 10 mg tablet 10 mg PO DAILY esomeprazole magnesium 40 mg capsule,delayed release(DR/EC) 40 mg PO DAILY carbidopa-levodopa 25-100 mg tablet 1 tab PO TID pregabalin 75 mg capsule 75 mg PO TID phenazopyridine [Pyridium] 200 mg tablet 200 mg PO Q8H PRN (Reason: pain) 3 Days Qty: 9 0RF cyanocobalamin (vitamin B-12) [Vitamin B-12] 1,000 mcg Tablet Extended Release 1,000 mcg PO DAILY aspirin [Sherly Low Dose Aspirin] 81 mg Tablet,Delayed Release (Dr/Ec) 81 mg PO DAILY furosemide 40 mg Tablet 40 mg PO BID latanoprost 0.005 % drops 1 drp ophthalmic (eye) QPM atorvastatin 20 mg tablet 20 mg PO DAILY allopurinol 100 mg tablet 100 mg PO DAILY meloxicam 7.5 mg tablet 7.5 mg PO DAILY Hold Instructions: Resume on 03/06/23. hydralazine 100 mg tablet 100 mg PO TID Probiotic 10 billion cell Capsule 10,000 mmu cells PO DAILY Discharge Orders: Discharge ED (Routine); Ordered 07/20/24 Ordered By: Jose Jean Baptiste Referrals: Bairon Chris DO [Primary Care Provider] - Padmaja Quick MD [Physician] - 1 week Discharge Diet: Usual diet Discharge Activity: Increase activity as tolerated Patient Instructions: Opioid Safety, Pain Management Activity Restrictions/Additional Instructions: Continue home medications as directed. Follow-up with your primary care provider and discuss referral to neurology and mental health services for further discussion of shaking and convulsions. Return to the ER for any new or worsening symptoms or any other concerns. Coding Level of Care Code ED Submarine Operator for Shanika Haskins
[2024-07-20 12:11] LABS: Bilirubin Urine Negative (Negative); Blood Urine Negative (Negative); Glucose Urine UA Negative (Normal); Ketones Urine Negative (Negative); Leukocyte Esterase Urine Negative (Negative); Nitrate Urine Negative (Negative); Protein Urine Trace (Negative); Urine Appearance Clear (CLEAR); Urine Color Yellow (Yellow); Urobilinogen Urine 0.2 mg/dL (Negative)
[2024-07-20 12:16] LABS: Add Urine Microscopic? YES; Bacteria Urine None Seen /hpf; Hyaline Casts Urine 2.05 /lpf; RBC Urine 0-2 /hpf (0-2); Squamous Epithelial Cell Urine 0-5 /hpf (0-5); WBC Urine 0-5 /hpf (0-5)
[2024-07-20 12:23] LABS: Basophils # 0.1 10^3/uL (0.0-0.1); Basophils % 0.5 %; Eosinophils # 0.3 10^3/uL (0.0-0.8); Eosinophils % 1.7 %; Hematocrit 41.1 % (36-47); Lymphocytes # 6.2 10^3/uL (0.8-4.8); Lymphocytes % 43.4 %; Mean Corpuscular HGB Conc 30.4 g/dL (30-55); Mean Corpuscular Hemoglobin 26.5 pg (27-33); Mean Corpuscular Volume 87.1 fl (85-98); Monocytes # 0.5 10^3/uL (0.2-0.9); Monocytes % 3.2 %; Neutrophils # 7.28 10^3/uL (1.8-7.7); Neutrophils % 50.8 %; Nucleated Red Blood Cells % 0 %; Platelet Count 203 10^3/cmm (157-399); Red Blood Count 4.72 10^6/uL (3.85-5.65); White Blood Count 14.34 10^3/uL (3.29-11.43)
[2024-07-20] MEDS: LORazepam 2 mg/mL INJ 1 mL 1 MG IVP (12:28)
[2024-07-20] MEDS: sodium chloride 0.9% 1,000 ML 999 ML IV (12:28)
[2024-07-20 12:38] VITALS: BP 148/62; PULSE 58; RESP 16; O2SAT 95
[2024-07-20 13:00] LABS: Alanine Aminotransferase < 5 U/L (0-33); Albumin Level 4.5 g/dL (3.5-5.2); Alkaline Phosphatase 117 U/L (35-105); Anion Gap 14.3 (5-19); Aspartate Amino Transferase 12 U/L (0-32); Blood Urea Nitrogen 25 mg/dL (8-23); Calcium 9.6 mg/dL (8.5-10.5); Carbon Dioxide 29 mmol/L (22-29); Chloride 103 mmol/L (98-107); Globulin 2.9 g/dL (1.3-4.6); Glucose 110 mg/dL (65-115); Magnesium 2.1 mg/dL (1.7-2.3); Osmolality Calculated 301 mOsm/kg (285-295); Phosphorus 3.3 mg/dL (2.5-4.5); Potassium 3.3 mmol/L (3.5-5.1); Sodium 143 mmol/L (136-145); Thyroid Stimulating Hormone 1.45 uIU/mL (0.27-4.20); Total Bilirubin 0.3 mg/dL (0.15-1.2); Total Protein 7.4 g/dL (6.6-8.7)
[2024-07-20 13:02] LABS: Creatinine Clr Calc Pharmacy 42.7509
[2024-07-20] MEDS: potassium chloride ER 20 mEq Tablet 40 MEQ PO (13:56)
[2024-07-20 14:02] VITALS: BP 164/76; PULSE 62; RESP 18; O2SAT 96
== END 2024-07-20 14:03 | disposition home or self-care (01) ==
PROVIDERS: Emergency Provider Student in an Organized Health Care Education/Training Program; PCP Electrodiagnostic Medicine
DX: R56.9 Unspecified convulsions (principal); E11.40 Type 2 diabetes mellitus with diabetic neuropathy, unspecified; I10 Essential (primary) hypertension
CPT/HCPCS: 70450; 80053; 81001; 83735; 84100; 84443; 85025; 96361; 96374; 99285; J2060; J7030

== ENCOUNTER → 2024-11-04 08:24 | Outpatient (BNVA) | payer MEDICARE, SELFPAY | PROVIDERS: PCP Electrodiagnostic Medicine; Visit Provider Podiatrist Foot & Ankle Surgery | DX: L60.8 Other nail disorders (principal); G57.92 Unspecified mononeuropathy of left lower limb; L03.116 Cellulitis of left lower limb; E11.69 Type 2 diabetes mellitus with other specified complication | CPT/HCPCS: 99214 ==

== ENCOUNTER → 2024-11-14 12:54 | Outpatient (BNVA) | payer MEDICARE, SELFPAY | PROVIDERS: PCP Electrodiagnostic Medicine; Visit Provider Podiatrist Foot & Ankle Surgery | DX: L60.0 Ingrowing nail (principal) | CPT/HCPCS: 99213 ==

== ENCOUNTER 2024-12-15 10:01 | Inpatient (IN) | payer MEDICARE, SELFPAY ==
[2024-12-15 10:14] VITALS: BP 116/64; PULSE 75; RESP 16; TEMP 36.5; O2SAT 95
--- NOTE | 2024-12-15 10:25 | W.ED.NAVMDI ---
HPI - Nausea/Vomiting/Diarrhea General: Chief complaint: Nausea/Vomiting/Diarrhea Stated complaint: dehydration, n/v/d Time Seen by Provider: 12/15/24 10:19 History of Present Illness: 79-year-old female presents because of just generalized weakness. She reports she had around a 24 to 36 hours of nausea vomiting diarrhea which is improved but now she is just feels really weak. Patient reports that her blood pressures low for her. Associated nausea: Yes Associated symtoms: Reports malaise and nausea; Denies chest pain, dizziness, headache(s) or palpitations Related Data Home Medications ?Medication ?Instructions ?Recorded ?Confirmed carbidopa 25 mg-levodopa 100 mg 1 tab PO TID 08/20/19 12/15/24 tablet esomeprazole magnesium 40 mg 40 mg PO DAILY 08/20/19 12/15/24 capsule,delayed release pregabalin 75 mg capsule 75 mg PO TID 08/20/19 12/15/24 aspirin 81 mg tablet,delayed 81 mg PO DAILY 03/08/20 12/15/24 release (Sherly Low Dose Aspirin) cyanocobalamin (vitamin B-12) 1,000 mcg PO DAILY 03/08/20 12/15/24 1,000 mcg tablet,extended release (Vitamin B-12 ER) amlodipine 10 mg tablet 10 mg PO DAILY 04/07/20 12/15/24 furosemide 40 mg tablet 40 mg PO BID 01/17/22 12/15/24 Lactobacillus acidophilus 10 10,000 mmu cells PO DAILY 12/07/22 12/15/24 billion cell capsule (Probiotic) allopurinol 100 mg tablet 100 mg PO DAILY 12/07/22 12/15/24 atorvastatin 20 mg tablet 20 mg PO DAILY 12/07/22 12/15/24 hydralazine 100 mg tablet 100 mg PO TID 12/07/22 12/15/24 meloxicam 7.5 mg tablet 7.5 mg PO DAILY 12/07/22 12/15/24 Held on 03/03/23. Instructions: Resume on 03/06/23. dorzolamide 22.3 mg-timolol 6.8 1 drp ophthalmic (eye) BID 12/15/24 12/15/24 mg/mL eye drops mirabegron 25 mg tablet,extended 25 mg PO DAILY 12/15/24 12/15/24 release 24 hr (Myrbetriq) prednisolone acetate 1 % eye 1 drp ophthalmic (eye) QID 12/15/24 12/15/24 drops,suspension Previous Rx's ?Medication ?Instructions ?Recorded mupirocin 2 % topical ointment 1 applic topical BID #15 grams 11/04/24 (Centany) Allergies Allergy/AdvReac Type Severity Reaction Status Date / Time estrogens, conjugated (From Allergy emotional Verified 11/14/24 12:56 Premarin) Review of Systems Const: Reports: malaise; Denies: fever(s) or chills Card: Denies: chest pain or palpitations Resp: Denies: dyspnea or productive cough GI: Reports: nausea, vomiting and diarrhea; Denies: abdominal pain : Denies: flank pain Skin/Breast: Denies: rash Neuro: Denies: headache(s) or dizziness PFSH ED PFSH: Medical History High risk medication use Inflammatory arthritis Depression Urgency incontinence Polyuria DM2 (diabetes mellitus, type 2) Onychodystrophy PVD (peripheral vascular disease) Gout Cystitis cystica Hypertension High cholesterol Restless leg syndrome Neuropathy Acid reflux Surgical History Hx of colonoscopy Hx of lumpectomy Hx of tonsillectomy History of hysterectomy History of knee surgery History of carpal tunnel surgery Family History Sister Cancer Mother Diabetes Stroke Other CAD (coronary artery disease) Hypertension Rheumatoid arthritis Denies family history of Lupus Psoriatic arthritis Chronic kidney disease (CKD) Social History Smoking and tobacco/nicotine status: never used tobacco/nicotine Alcohol intake: current Alcohol intake frequency: holidays/special occasions only Alcohol type: wine Substance/Drug Use: never Household members: spouse Marital status: Current occupational status: retired Course Vital Signs: Vital signs: Vital Signs Temperature 97.7 F 12/15/24 10:14 Pulse Rate 75 12/15/24 10:14 Respiratory Rate 16 12/15/24 10:14 Blood Pressure 116/64 12/15/24 10:14 Pulse Oximetry 95 12/15/24 10:14 Oxygen Delivery Me thod Room Air 12/15/24 10:14 MDM - Nausea/Vomiting/Diarrhea Medical Decision Making Patient's diagnostics were reviewed. Patient has mild elevated white count. She has significant elevation of BUN/creatinine over her baseline had elevated lipase, bili and liver enzymes. I did obtain ultrasound and CT and they show no acute findings. Patient's symptoms are consistent with a likely hepatitis and dehydration from her symptoms. Patient will be admitted to Dr. Gold for observation and fluid rehydration. Patient was stable upon admission. Lab Data 12/15/24 10:46 12/15/24 10:46 Radiology Impressions Abdomen/Pelvis CT 12/15/24 11:29 IMPRESSION: No acute findings. COMMENTS: Consistent with the [employer]'s Incidental Findings Committee white paper (J Am Mark Radiol 2018): Any incidental renal lesion less than 1 cm or classified as too small to characterize, or any incidental cystic renal lesion characterized as simple-appearing, is likely benign. No follow-up imaging is recommended for these lesions per consensus recommendations based on imaging criteria. Gallbladder Ultrasound 12/15/24 11:29 IMPRESSION: No acute findings. Laboratory Results WBC 12.74 10^3/uL (3.29-11.43) H 12/15/24 10:46 RBC 4.63 10^6/uL (3.85-5.65) 12/15/24 10:46 Hgb 12.40 g/dL (11.27-16.99) 12/15/24 10:46 Hct 40.3 % (36-47) 12/15/24 10:46 MCV 87.0 fl (85-98) 12/15/24 10:46 MCH 26.8 pg (27-33) L 12/15/24 10:46 MCHC 30.8 g/dL (30-55) 12/15/24 10:46 RDW 17.3 % (12.1-15.1) H 12/15/24 10:46 Plt Count 177 10^3/cmm (157-399) 12/15/24 10:46 MPV 11.3 fL (7.4-10.4) H 12/15/24 10:46 Neut % (Auto) 64.2 % 12/15/24 10:46 Lymph % (Auto) 29.4 % 12/15/24 10:46 [place] % (Auto) 4.4 % 12/15/24 10:46 Eos % (Auto) 1.3 % 12/15/24 10:46 Baso % (Auto) 0.3 % 12/15/24 10:46 Neut # (Auto) 8.19 10^3/uL (1.8-7.7) H 12/15/24 10:46 Lymph # (Auto) 3.7 10^3/uL (0.8-4.8) 12/15/24 10:46 [place] # (Auto) 0.6 10^3/uL (0.2-0.9) 12/15/24 10:46 Eos # (Auto) 0.2 10^3/uL (0.0-0.8) 12/15/24 10:46 Baso # (Auto) 0.0 10^3/uL (0.0-0.1) 12/15/24 10:46 Nucleated RBC % (auto) 0 % 12/15/24 10:46 Nucleated RBCs # 0.0 /100WBC 12/15/24 10:46 Sodium 139 mmol/L (136-145) 12/15/24 10:46 Potassium 4.1 mmol/L (3.5-5.1) 12/15/24 10:46 Chloride 97 mmol/L (98-107) L 12/15/24 10:46 Carbon Dioxide 22 mmol/L (22-29) 12/15/24 10:46 Anion Gap 24.1 (5-19) H 12/15/24 10:46 BUN 48 mg/dL (8-23) H 12/15/24 10:46 Creatinine 5.0 mg/dL (0.5-0.9) H 12/15/24 10:46 GFR Calculation Not Reportable 12/15/24 10:46 Glucose 93 mg/dL (65-115) 12/15/24 10:46 Calculated Osmolality 300 mOsm/kg (285-295) H 12/15/24 10:46 Calcium 9.1 mg/dL (8.5-10.5) 12/15/24 10:46 Total Bilirubin 3.5 mg/dL (0.15-1.2) H 12/15/24 10:46 AST 196 U/L (0-32) H 12/15/24 10:46 ALT 31 U/L (0-33) 12/15/24 10:46 Alkaline Phosphatase 525 U/L (35-105) H 12/15/24 10:46 Total Protein 7.2 g/dL (6.6-8.7) 12/15/24 10:46 Albumin 3.8 g/dL (3.5-5.2) 12/15/24 10:46 Globulin 3.4 g/dL (1.3-4.6) 12/15/24 10:46 Lipase 177 U/L (13-60) H 12/15/24 10:46 All radiology interpretation(s) finalized by discharge Discharge Plan Discharge Patient Disposition: Admitted As Inpatient Clinical Impression: Acute kidney injury, Dehydration, Hepatitis Condition: Stable Coding Level of Care Code ED Getter Welder for Shanika Haskins
[2024-12-15] MEDS: sodium chloride 0.9% 1,000 ML 999 ML IV (10:51)
[2024-12-15 10:56] LABS: Basophils % 0.3 %; Eosinophils # 0.2 10^3/uL (0.0-0.8); Eosinophils % 1.3 %; Hematocrit 40.3 % (36-47); Lymphocytes # 3.7 10^3/uL (0.8-4.8); Lymphocytes % 29.4 %; Mean Corpuscular HGB Conc 30.8 g/dL (30-55); Mean Corpuscular Hemoglobin 26.8 pg (27-33); Mean Platelet Volume 11.3 fL (7.4-10.4); Monocytes # 0.6 10^3/uL (0.2-0.9); Monocytes % 4.4 %; Neutrophils # 8.19 10^3/uL (1.8-7.7); Neutrophils % 64.2 %; Nucleated Red Blood Cells % 0 %; Platelet Count 177 10^3/cmm (157-399); Red Blood Count 4.63 10^6/uL (3.85-5.65); Red Cell Distribution Width 17.3 % (12.1-15.1); White Blood Count 12.74 10^3/uL (3.29-11.43)
[2024-12-15 11:18] LABS: Albumin Level 3.8 g/dL (3.5-5.2); Alkaline Phosphatase 525 U/L (35-105); Anion Gap 24.1 (5-19); Aspartate Amino Transferase 196 U/L (0-32); Blood Urea Nitrogen 48 mg/dL (8-23); Calcium 9.1 mg/dL (8.5-10.5); Carbon Dioxide 22 mmol/L (22-29); Chloride 97 mmol/L (98-107); Globulin 3.4 g/dL (1.3-4.6); Glucose 93 mg/dL (65-115); Lipase 177 U/L (13-60); Osmolality Calculated 300 mOsm/kg (285-295); Potassium 4.1 mmol/L (3.5-5.1); Sodium 139 mmol/L (136-145); Total Bilirubin 3.5 mg/dL (0.15-1.2); Total Protein 7.2 g/dL (6.6-8.7)
--- NOTE | 2024-12-15 11:29 | USR_ITS ---
PROCEDURE INFORMATION: Exam: US Abdomen, Limited; Right Upper Quadrant Exam date and time: 12/15/2024 12:18 PM Age: 79 years old Clinical indication: Abnormal findings; Abnormal lab test; Abnormal kidney function lab tests; Additional info: N/v abnormal labs TECHNIQUE: Imaging protocol: Real time ultrasound of the abdomen with image documentation. Limited exam focused on the right upper quadrant. COMPARISON: US abdomen complete* [id number] 02/09/2023 9:19 AM FINDINGS: Liver: Normal. No masses. Gallbladder: Normal. No gallstones. There is no gallbladder wall thickening. Biliary ducts: Normal. No stones. No dilation. Pancreas: Visualized pancreas is unremarkable. Right kidney: Multiple cysts, the largest 2.4 cm in diameter.. No mass. No hydronephrosis. US/US gall bladder [id number] IMPRESSION: No acute findings.
--- NOTE | 2024-12-15 11:29 | CTR_ITS ---
PROCEDURE INFORMATION: Exam: CT Abdomen And Pelvis Without Contrast Exam date and time: 12/15/2024 11:55 AM Age: 79 years old Clinical indication: Nausea and vomiting; Additional info: N/v TECHNIQUE: Imaging protocol: Computed tomography of the abdomen and pelvis without contrast. Radiation optimization: All CT scans at this facility use at least one of these dose optimization techniques: automated exposure control; mA and/or kV adjustment per patient size (includes targeted exams where dose is matched to clinical indication); or iterative reconstruction. COMPARISON: CR XR abdomen min 2V [id number] 01/03/2023 9:00 AM RADIATION DOSE METRICS: Total DLP (mGy-cm): 654.63 FINDINGS: Coronary arteries: Coronary artery calcification. Liver: Normal. No mass. Gallbladder and biliary ducts: Normal. No calcified stones. No ductal dilation. Pancreas: Normal. No ductal dilation. Spleen: Normal. No splenomegaly. Adrenal glands: Normal. No mass. Kidneys and ureters: Nonobstructing right renal calculus. Small bilateral renal cysts. Stomach and bowel: Unremarkable. No obstruction. No mucosal thickening. Appendix: No evidence of appendicitis. Intraperitoneal space: Unremarkable. No free air. No significant fluid collection. Vasculature: Unremarkable. No abdominal aortic aneurysm. Lymph nodes: Unremarkable. No enlarged lymph nodes. Urinary bladder: Unremarkable as visualized. Reproductive: Hysterectomy. 3.7 x 1.7 cm partially cystic structure in the left adnexa is probably the left ovary. Bones/joints: Severe degenerative changes of the axial skeleton. Soft tissues: Unremarkable. CT/CT abdomen pelvis wo con [id number] IMPRESSION: No acute findings. COMMENTS: Consistent with the [employer]'s Incidental Findings Committee white paper (J Am Mark Radiol 2018): Any incidental renal lesion less than 1 cm or classified as too small to characterize, or any incidental cystic renal lesion characterized as simple-appearing, is likely benign. No follow-up imaging is recommended for these lesions per consensus recommendations based on imaging criteria.
[2024-12-15 12:06] LABS: Alanine Aminotransferase 31 U/L (0-33)
[2024-12-15 14:20] LABS: Bilirubin Urine 1+ (Negative); Blood Urine Negative (Negative); Glucose Urine UA Negative (Normal); Ketones Urine Trace (Negative); Leukocyte Esterase Urine 3+ (Negative); Nitrate Urine Negative (Negative); Protein Urine 2+ (Negative); Specific Gravity, Urine 1.009 (1.005-1.030); Urine Appearance Turbid (CLEAR); Urine Color Dark Yellow (Yellow); pH Urine 5.5 (5-7)
[2024-12-15 14:22] LABS: Add Urine Microscopic? YES; Bacteria Urine EXCEEDS /hpf; Hyaline Casts Urine 7.85 /lpf; RBC Urine 0-2 /hpf (0-2); Squamous Epithelial Cell Urine 0-5 /hpf (0-5); Universal Test for UA Present (0); WBC Urine >100 /hpf (0-5)
[2024-12-15 14:28] VITALS: BP 117/52; PULSE 65; O2SAT 98
[2024-12-15] MEDS: sodium chloride 0.9% 1,000 ML 125 ML IV (14:29)
[2024-12-15 14:35] LABS: Add Urine Culture? Yes
[2024-12-15] MEDS: cefTRIAXone 1,000 mg SDV 1000 MG IVP (16:22)
[2024-12-15 16:50] VITALS: BMI 28.7
--- NOTE | 2024-12-15 17:44 | PM.HP ---
Providers/Chief Complaint Admitting Physician: Jaison Gold DO Primary Care Provider: Bairon Chris DO Chief Complaint: dehydration, n/v/d History of Present Illness Vania Price is a 79 year old female with a past medical history of inflammatory arthritis, type 2 diabetes, PVD, gout, hypertension, high cholesterol, neuropathy, presented to the ER with generalized weakness, nausea and vomiting. Patient tells me that she is being seen by multiple other specialists for concerning findings in her pelvis. She says that she is to see a urologist in the near future. She is unable to tell me what the concerning findings were. She states that she has not been able to eat or drink over the last couple of days, and began having nausea and vomiting for 1 day. She denies any chest pain or shortness of breath. She states she does not have any burning when she pees, but does feel like she has a bowling ball in her pelvis. In the ER she was noted to have a leukocytosis of 12.74. BUN at 48 creatinine 5.0. She had an anion gap of 24.1. Bilirubin elevated at 3.5, with AST of 196 and an alk phos of 525. Lipase was elevated to 177. She does appear to have a UTI with 2+ protein 3+ leuk esterase and greater than [address] of the abdomen and pelvis showed no acute concerns. There was a partially cystic structure in the left adnexa, thought likely the left ovary. She had small bilateral renal cyst. Ultrasound of the gallbladder showed no gallstones or gallbladder wall thickening. She was admitted for ongoing workup. Review of Systems General: Reports: 10 or more systems reviewed and unremarkable except in HPI and below GI: Reports: abdominal pain, nausea and vomiting Medications/Allergies Home Medications ?Medication ?Instructions ?Recorded ?Confirmed ?Last Taken ?Type carbidopa 25 mg-levodopa 100 mg 1 tab PO TID 08/20/19 12/15/24 12/15/24 History tablet esomeprazole magnesium 40 mg 40 mg PO DAILY 08/20/19 12/15/24 12/15/24 History capsule,delayed release pregabalin 75 mg capsule 75 mg PO TID 08/20/19 12/15/24 12/15/24 History aspirin 81 mg tablet,delayed 81 mg PO DAILY 03/08/20 12/15/24 12/15/24 History release (Sherly Low Dose Aspirin) cyanocobalamin (vitamin B-12) 1,000 mcg PO DAILY 03/08/20 12/15/24 12/15/24 History 1,000 mcg tablet,extended release (Vitamin B-12 ER) amlodipine 10 mg tablet 10 mg PO DAILY 04/07/20 12/15/24 12/15/24 History furosemide 40 mg tablet 40 mg PO BID 01/17/22 12/15/24 12/15/24 History Lactobacillus acidophilus 10 10,000 mmu cells PO DAILY 12/07/22 12/15/24 12/15/24 History billion cell capsule (Probiotic) allopurinol 100 mg tablet 100 mg PO DAILY 12/07/22 12/15/24 12/15/24 History atorvastatin 20 mg tablet 20 mg PO DAILY 12/07/22 12/15/24 12/15/24 History hydralazine 100 mg tablet 100 mg PO TID 12/07/22 12/15/24 12/15/24 History meloxicam 7.5 mg tablet 7.5 mg PO DAILY 12/07/22 12/15/24 12/15/24 History Held on 03/03/23. Instructions: Resume on 03/06/23. mupirocin 2 % topical ointment 1 applic topical BID #15 grams 11/04/24 12/15/24 Unknown Rx (Centany) dorzolamide 22.3 mg-timolol 6.8 1 drp ophthalmic (eye) BID 12/15/24 12/15/24 12/14/24 History mg/mL eye drops mirabegron 25 mg tablet,extended 25 mg PO DAILY 12/15/24 12/15/24 Unknown History release 24 hr (Myrbetriq) prednisolone acetate 1 % eye 1 drp ophthalmic (eye) QID 12/15/24 12/15/24 12/14/24 History drops,suspension Allergies Allergy/AdvReac Type Severity Reaction Status Date / Time estrogens, conjugated (From Allergy emotional Verified 11/14/24 12:56 Premarin) PFSH Acute PFSH: Medical History High risk medication use Inflammatory arthritis Depression Urgency incontinence Polyuria DM2 (diabetes mellitus, type 2) Onychodystrophy PVD (peripheral vascular disease) Gout Cystitis cystica Hypertension High cholesterol Restless leg syndrome Neuropathy Acid reflux Surgical History Hx of colonoscopy Hx of lumpectomy Hx of tonsillectomy History of hysterectomy History of knee surgery History of carpal tunnel surgery Family History Sister Cancer Mother Diabetes Stroke Other CAD (coronary artery disease) Hypertension Rheumatoid arthritis Denies family history of Lupus Psoriatic arthritis Chronic kidney disease (CKD) Social History Smoking and tobacco/nicotine status: never used tobacco/nicotine Alcohol intake: current Alcohol intake frequency: holidays/special occasions only Alcohol type: wine Substance/Drug Use: never Household members: spouse Marital status: Current occupational status: retired Vitals/I&O/Wt Last Vital Signs Temp 97.7 F 12/15/24 10:14 Pulse 65 12/15/24 14:28 Resp 16 12/15/24 10:14 BP 117/52 12/15/24 14:28 Pulse Ox 98 12/15/24 14:28 O2 Del Method Room Air 12/15/24 16:50 12/15/24 12/15/24 12/15/24 06:59 14:59 22:59 Intake Total 1000 / 1000 1000 / 2000 Balance 1000 / 1000 1000 / 2000 Weight last 48 hrs Weight 162 lb Weight 162 lb Physical Exam Narrative: General: Cooperative patient in no apparent distress. Well developed. HEENT: Normocephalic, Atraumatic. External ears normal. Nasal passages patent without drainage. MMM. Heart: RRR. Resp: LCTA. No respiratory distress, no use of accessory muscles. Abd: Soft, mild epigastric tenderness to palpation, abdomen is nondistended. Extremities: No edema. Skin: No rash or lesions on exposed areas. Data 12/15/24 10:46 12/15/24 10:46 A&P Assessment and plan (1) Elevated liver enzymes: (2) Elevated lipase: (3) Leukocytosis: (4) Dehydration: (5) Acute kidney injury: (6) UTI (urinary tract infection): (7) DM2 (diabetes mellitus, type 2): (8) Inflammatory arthritis: (9) Nausea and vomiting: Plan 79-year-old female admitted for nausea and vomiting, dehydration, acute kidney injury, and elevated liver enzymes and lipase. Will admit for evaluation and treatment. Labs showed leukocytosis to 12.7, BUN of 48 and creatinine of 5.0, bilirubin elevated to 3.5, AST to 196, alk phos to 525. Lipase was elevated to 177. CT abdomen pelvis and gallbladder ultrasound did not show any gallstones or gallbladder thickening. Was having significant nausea and vomiting. States she was unable to eat or drink. She does appear dehydrated. She had an elevated BUN to 48 and a creatinine to 5.0. She initially did well with Zofran. We will continue this if she has further nausea. Will start LR at 100 for now. Will keep her n.p.o. due to the nausea. If this improves, as well as her pain, we can slowly begin to advance to oral intake. May start with pain medication by mouth if needed, and then we can advance to liquids or solids. Will continue zofran for nausea. With her elevated liver enzymes, and negative gallbladder studies, we will check a hepatitis panel. She appears to have UTI on urinalysis. Urine culture was obtained and is currently pending. Will continue ceftriaxone. She had a previous colonoscopy in 2022 that showed some polyps, but no other masses or concerning findings. A previous abdominal ultrasound from 2022 was reviewed. At that time she had normal-appearing pancreas, as well as liver and gallbladder, though liver and gallbladder. Will hold her home medications for now, and we can restart those tomorrow or sooner if her blood pressure begins to increase. Symptoms could also be related to medications. For this reason I will hold the statin, and the PPI, NSAIDs. She currently is afebrile. Her blood pressure and heart rate are both stable. Will recheck labs in the morning and include some inflammatory markers. If she is doing clinically better tomorrow and her renal function improves, we can consider discharging home with close follow up. Code Status: Full IVF: LR @ 100 DVT PPx: heparin GI PPx: None ABx: Rocephin Diet: NPO except sips/chips Discharge plan: Home when able PDMP PDMP Reviewed: Not Reviewed Attestations Medical Necessity Statement*: Will need inpatient stay for acute kidney injury, elevated liver enzymes, elevated lipase, pain control, antiemetics, lab analysis, and IV fluids. Coding Level of Care Code Acute Code for Chg Fwd Moderate MDM includes number and complexity of problems actively addressed during encounter, amount and/or complexity of data reviewed/ordered and described risk of complication, morbidity or mortality of management as documented Diagnoses Elevated liver enzymes R74.8 Elevated lipase R74.8 Bandemia D72.825 Leukocytosis type: bandemia Dehydration E86.0 Acute kidney injury N17.9 Acute cystitis without hematuria N30.00 Urinary tract infection type: acute cystitis Hematuria presence: without hematuria Type 2 diabetes mellitus with other specified complication, unspecified whether 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
[2024-12-15 18:03] VITALS: BP 131/62; PULSE 86; RESP 16; TEMP 36.4; O2SAT 93
[2024-12-15] MEDS: heparin 5,000 unit/mL INJ 1 mL 5000 UNIT SUBCUT (19:58)
[2024-12-15] MEDS: lactated ringers 1,000 ML 100 ML IV (19:59)
[2024-12-15 20:13] VITALS: BP 132/65; PULSE 72; RESP 18; TEMP 36.9; O2SAT 96
[2024-12-15] MEDS: lanolin oint 7 gm 1 APPLIC TOPICAL (20:21)
[2024-12-15] MEDS: carbidopa-levodopa 25-100mg Tablet 1 EACH PO (20:54)
[2024-12-15] MEDS: aspirin 325 mg Tablet PO (21:37)
[2024-12-15] MEDS: ATORVASTATIN 10 MG TABLET 20 MG PO (21:38)
[2024-12-15] MEDS: allopurinol 100 mg Tablet PO (21:38)
[2024-12-15 23:49] VITALS: BP 134/68; PULSE 72; RESP 17; TEMP 36.8; O2SAT 96
[2024-12-16 03:35] VITALS: BP 124/64; PULSE 80; RESP 18; TEMP 36.7; O2SAT 94
[2024-12-16] MEDS: lactated ringers 1,000 ML 100 ML IV (04:31)
[2024-12-16 05:23] LABS: Basophils % 0.3 %; Eosinophils # 0.1 10^3/uL (0.0-0.8); Eosinophils % 1.2 %; Hematocrit 32.3 % (36-47); Lymphocytes # 2.9 10^3/uL (0.8-4.8); Lymphocytes % 31.9 %; Mean Corpuscular HGB Conc 29.1 g/dL (30-55); Mean Corpuscular Hemoglobin 26.6 pg (27-33); Mean Corpuscular Volume 91.5 fl (85-98); Mean Platelet Volume 11.9 fL (7.4-10.4); Monocytes # 0.5 10^3/uL (0.2-0.9); Monocytes % 5.9 %; Neutrophils # 5.46 10^3/uL (1.8-7.7); Neutrophils % 60.3 %; Nucleated Red Blood Cells % 0 %; Platelet Count 131 10^3/cmm (157-399); Red Blood Count 3.53 10^6/uL (3.85-5.65); Red Cell Distribution Width 17.6 % (12.1-15.1); White Blood Count 9.08 10^3/uL (3.29-11.43)
[2024-12-16 05:59] LABS: Folate Level 14.4 ng/mL (4.8-37.3)
[2024-12-16 06:00] LABS: Hepatitis A Antibody IgM Non-Reactive (Nonreactive); Hepatitis B Core AB, Total Non-Reactive (Nonreactive); Hepatitis B Surface Antigen Non-Reactive (Nonreactive); Hepatitis C Virus Antibody Non-Reactive (Nonreactive)
[2024-12-16 06:02] LABS: Alanine Aminotransferase 21 U/L (0-33); Albumin Level 3.3 g/dL (3.5-5.2); Alkaline Phosphatase 403 U/L (35-105); Anion Gap 26.1 (5-19); Aspartate Amino Transferase 86 U/L (0-32); Blood Urea Nitrogen 63 mg/dL (8-23); C Reactive Protein 41.2 mg/L (0.0-4.9); Carbon Dioxide 16 mmol/L (22-29); Chloride 103 mmol/L (98-107); Cholesterol 80 mg/dL (0-200); Globulin 1.6 g/dL (1.3-4.6); Glucose 53 mg/dL (65-115); HDL Cholesterol 16 mg/dL (60-100); LDL Cholesterol Calculated 29 mg/dL (50-129); LDL HDL Ratio 1.81 RATIO (0.00-3.22); Magnesium 2.7 mg/dL (1.7-2.3); Osmolality Calculated 307 mOsm/kg (285-295); Potassium 4.1 mmol/L (3.5-5.1); Sodium 141 mmol/L (136-145); Total Bilirubin 2.1 mg/dL (0.15-1.2); Total Protein 4.9 g/dL (6.6-8.7); Triglycerides 173 mg/dL (0-150)
[2024-12-16 06:51] LABS: Vitamin B12 > 2000 pg/mL (232-1245)
[2024-12-16 06:59] VITALS: BP 113/63; PULSE 81; RESP 16; TEMP 37.1; O2SAT 90
[2024-12-16] MEDS: heparin 5,000 unit/mL INJ 1 mL 5000 UNIT SUBCUT ×2 (07:55→21:11)
[2024-12-16] MEDS: carbidopa-levodopa 25-100mg Tablet 1 EACH PO ×3 (07:55→21:11)
[2024-12-16] MEDS: dextrose 5%-sod chloride 0.45% 1,000 ML 100 ML IV ×2 (08:01→17:31)
[2024-12-16 08:07] LABS: Glucose Point of Care 58 mg/dL (70-110)
[2024-12-16 10:57] LABS: Glucose Point of Care 85 mg/dL (70-110)
[2024-12-16 10:59] VITALS: BP 120/65; PULSE 74; RESP 16; TEMP 36.9; O2SAT 90
[2024-12-16 12:06] LABS: Hepatitis B Surface AB < 3.5 (11.5-1000)
[2024-12-16 12:36] LABS: Erythrocyte Sedimentation Rate 19 mm/hr (0-15)
[2024-12-16 12:49] LABS: Bilirubin Urine 1+ (Negative); Blood Urine Negative (Negative); Glucose Urine UA Negative (Normal); Ketones Urine Trace (Negative); Leukocyte Esterase Urine 2+ (Negative); Nitrate Urine Negative (Negative); Protein Urine Trace (Negative); Specific Gravity, Urine 1.009 (1.005-1.030); Urine Appearance Cloudy (CLEAR); Urine Color Dark Yellow (Yellow)
[2024-12-16 12:50] LABS: Estmated Average Glucose 114; Hemoglobin A1C 5.6 % (4.0-6.0)
[2024-12-16 12:54] LABS: Add Urine Microscopic? YES; Bacteria Urine None Seen /hpf; Hyaline Casts Urine 0.81 /lpf; RBC Urine 0-2 /hpf (0-2); WBC Urine 51-100 /hpf (0-5)
[2024-12-16 13:08] LABS: Potassium, Radom Urine 26 mmol/L; Urine Creatinine 64 mg/dL (28-217); Urine Random Chloride 53 mmol/L; Urine Random Sodium 54 mmol/L
[2024-12-16 13:09] LABS: Iron 41 ug/dL (37-145); NT Pro B Type Natriuretic Pept 937 pg/mL (0-450); Percent Saturation 14.1 % (20-50); Total Iron Binding Capacity 289 mcg/dl; Unsaturated Iron Binding 248 ug/dL (112-347)
[2024-12-16 13:15] LABS: UA Slide Review UA Slide Review Perf
[2024-12-16 13:19] LABS: Add Urine Culture? Yes
--- NOTE | 2024-12-16 13:22 | PM.CONSULT ---
Providers/Reason For Consult Consulting Physician/Specialty*: Dr tony vanegas/ telenephrology Reason for Consult*: FRANK Requesting Physician: Dr Aman Beach Attending Physician: Caesar Bazan MD Primary Care Provider: Bairon Chris DO History of Present Illness History of Present Illness Vania Price is a 79 year old female with history of obesity, type 2 diabetes, peripheral vascular disease, hypertension, gout question of inflammatory arthritis versus osteoarthritis, and neuropathy. The patient had nausea vomiting and weakness on Monday. The patient came to the emergency room where she was diagnosed with UTI and acute kidney injury. CT scan showed no hydronephrosis. The patient was given normal saline. Creatinine has risen from 5-5.8 overnight and she has developed a hyperchloremic metabolic acidosis and renal was called to see the patient Review of Systems Narrative: Weak, nausea, vomiting, diarrhea no chest pain, dyspnea, neuropathy in her legs, forgetful, anxious, poor appetite not eating well. Positive urinating positive dysuria and pain with urinating for 3 weeks multiple Medications/Allergies Home Medications ?Medication ?Instructions ?Recorded ?Confirmed ?Last Taken ?Type carbidopa 25 mg-levodopa 100 mg 1 tab PO TID 08/20/19 12/15/24 12/15/24 History tablet esomeprazole magnesium 40 mg 40 mg PO DAILY 08/20/19 12/15/24 12/15/24 History capsule,delayed release pregabalin 75 mg capsule 75 mg PO TID 08/20/19 12/15/24 12/15/24 History aspirin 81 mg tablet,delayed 81 mg PO DAILY 03/08/20 12/15/24 12/15/24 History release (Sherly Low Dose Aspirin) amlodipine 10 mg tablet 10 mg PO DAILY 04/07/20 12/15/24 12/15/24 History furosemide 40 mg tablet 40 mg PO BID 01/17/22 12/15/24 12/15/24 History Lactobacillus acidophilus 10 10,000 mmu cells PO DAILY 12/07/22 12/15/24 12/15/24 History billion cell capsule (Probiotic) allopurinol 100 mg tablet 100 mg PO DAILY 12/07/22 12/15/24 12/15/24 History atorvastatin 20 mg tablet 20 mg PO DAILY 12/07/22 12/15/24 12/15/24 History hydralazine 100 mg tablet 100 mg PO TID 12/07/22 12/15/24 12/15/24 History meloxicam 7.5 mg tablet 7.5 mg PO DAILY 12/07/22 12/15/24 12/15/24 History Held on 03/03/23. Instructions: Resume on 03/06/23. Allergies Allergy/AdvReac Type Severity Reaction Status Date / Time estrogens, conjugated (From Allergy emotional Verified 11/14/24 12:56 Premarin) Current Medications Generic Name Dose Route Start Last Admin Trade Name Freq PRN Reason Stop Dose Admin Carbidopa/Levodopa 1 each 12/15/24 21:00 12/16/24 07:55 Carbidopa-Levodopa 25-100mg Tablet PO 1 each TID FERMÍN Administration Ceftriaxone Sodium 1,000 mg 12/15/24 14:45 12/15/24 16:22 Ceftriaxone 1,000 Mg Sdv IVP 1,000 mg Q24H FERMÍN Administration Protocol Heparin Sodium (Porcine) 5,000 unit 12/15/24 19:15 12/16/24 07:55 Heparin 5,000 Unit/Ml Inj 1 Ml SUBCUT 5,000 unit Q12H FERMÍN Administration Dextrose/Sodium Chloride 1,000 mls @ 100 mls/hr 12/16/24 08:00 12/16/24 08:01 Dextrose 5%-Sod Chloride 0.45% IV 100 mls/hr .Q10H FERMÍN Administration Lanolin 1 applic 12/15/24 20:08 12/15/24 20:21 Lanolin Oint 7 Gm TOPICAL 1 applic PRN PRN Administration DRYNESS PFSH Acute PFSH: Medical History High risk medication use Inflammatory arthritis Depression Urgency incontinence Polyuria DM2 (diabetes mellitus, type 2) Onychodystrophy PVD (peripheral vascular disease) Gout Cystitis cystica Hypertension High cholesterol Restless leg syndrome Neuropathy Acid reflux Surgical History Hx of colonoscopy Hx of lumpectomy Hx of tonsillectomy History of hysterectomy History of knee surgery History of carpal tunnel surgery Family History Sister Cancer Mother Diabetes Stroke Other CAD (coronary artery disease) Hypertension Rheumatoid arthritis Denies family history of Lupus Psoriatic arthritis Chronic kidney disease (CKD) Social History Smoking and tobacco/nicotine status: never used tobacco/nicotine Alcohol intake: current Alcohol intake frequency: holidays/special occasions only Alcohol type: wine Substance/Drug Use: never Household members: spouse Marital status: Current occupational status: retired Vitals/I&O/Wt Last Vital Signs Temp 98.4 F 12/16/24 10:59 Pulse 74 12/16/24 10:59 Resp 16 12/16/24 10:59 BP 120/65 12/16/24 10:59 Pulse Ox 90 12/16/24 10:59 O2 Del Method Room Air 12/16/24 10:59 12/15/24 12/16/24 12/16/24 22:59 06:59 14:59 Intake Total 1240 / 2240 853.333 / 3093.333 391.667 / 391.667 Output Total 400 / 400 450 / 450 Balance 1240 / 2240 453.333 / 2693.333 -58.333 / -58.333 Weight last 48 hrs Weight 73.482 kg Weight 73.482 kg Weight 73.482 kg Physical Exam Narrative: Obese lady in bed no apparent distress. Vital signs noted. HEENT normocephalic atraumatic. Neck is supple no JVP. Lungs clear to auscultation. Heart regular positive S1-S2. Abdomen is soft nontender nondistended positive bowel sounds. Extremities no edema. Patient has a Araujo catheter. Neuro awake alert oriented x 2+. Obese all extremities. Data 12/16/24 04:46 12/16/24 04:46 Micro: Microbiology 12/15/24 13:53 Urine Culture - Preliminary Urine,Clean Catch Gram Negative Rods A&P Assessment and plan (1) Acute kidney injury: 79-year-old lady obesity hypertension chronic Mobic user, diabetes. Patient has a normal creatinine in June 2024 with a creatinine of 1.0 mg/dL. Patient now presents with UTI and acute kidney injury creatinine of 5 yesterday is gone up to 5.8 mg/dL today. 1. Acute kidney injury no hydronephrosis on CT scan. Urinalysis reviewed yesterday was dark yellow and turbid specific gravity of 10 092+ protein 1+ bilirubin 3+ leuk esterase 0-2 RBCs, greater than 100 white cells. Bacteria exceeds. The patient had a UTI. Agree with antibiotics following up cultures. Acute kidney injury in this lady is likely ATN from furosemide along with Mobic along with UTI with nausea and vomiting. 1 could also be concerned about prerenal azotemia. Her urine sodium is difficult to interpret as the patient was on furosemide. We can also send complements though patient does not have significant hematuria. Will check a CPK. Patient has a history of a positive RIZWAN of 1-80 in 2020 unlikely to be a lupus nephritis. However we can repeat RIZWAN [id number] DNA and complements. Would hold Mobic. 2. Patient has developed an increased anion gap metabolic acidosis likely from her acute kidney injury and normal saline. At this time would recommend using lactated Ringer's or D5 half NS and monitoring. 3. UTI improving. Monitor urine culture results and sensitivities 4. Anemia given the fact the patient has acute kidney injury we will also check an SPEP. 5. Blood pressure acceptable at this time off of medications. 6. Check uric acid on allopurinol. 7. Patient has restless leg syndrome and can have dose her Lyrica or gabapentin and see if this helps her. This was discussed in detail with the patient and with Dr. Coyne. The patient was seen examined using audiovisual equipment with the aid of a nurse. The patient consented to telehealth. Plan See above. PDMP PDMP Reviewed: Not Reviewed Consult Attestations Medical Necessity Statement: UTI, acute kidney injury, metabolic acidosis Time Spent in Patient Care: Greater than 35 minutes (>than 50% of time spent in counselling and/or direct pt care on unit). Coding Level of Care Code Acute Code for [facility] Diagnoses Acute kidney injury N17.9
[2024-12-16] MEDS: cefTRIAXone 1,000 mg SDV 1000 MG IVP (13:42)
[2024-12-16] MEDS: pregabalin 25 mg Capsule PO ×2 (13:42→17:30)
[2024-12-16 14:02] LABS: Eosinophil Urine No Eosinophils Seen
[2024-12-16 14:35] LABS: Urine Creatinine 67 mg/dL (28-217)
[2024-12-16 14:36] LABS: Creatinine Urine, Random 67 mg/dL (28-217); Microalbum Creatinine Ratio Ur 134 mg/dL (0-20); Microalbumin Random Urine 9 ug/dL (0-20); Urine Protein Random 22 mg/dL
--- NOTE | 2024-12-16 15:04 | P.PN_ITS ---
Subjective 2 Subjective: Hospital course, labs appreciated. Patient seen laying comfortably in bed, seems slightly confused. Remains on room air. Hemodynamically stable. Stating she is hungry and would like to eat. Concern for restarting her home medications. Vitals/I&O/Wt Last Vital Signs Temp 98.4 F 12/16/24 10:59 Pulse 74 12/16/24 10:59 Resp 16 12/16/24 10:59 BP 120/65 12/16/24 10:59 Pulse Ox 90 12/16/24 10:59 O2 Del Method Room Air 12/16/24 10:59 12/16/24 12/16/24 12/16/24 06:59 14:59 22:59 Intake Total 853.333 / 3093.333 391.667 / 391.667 Output Total 400 / 400 450 / 450 Balance 453.333 / 2693.333 -58.333 / -58.333 Weight last 48 hrs Weight 73.482 kg Weight 73.482 kg Weight 73.482 kg Physical Exam 2 Narrative: General: Cooperative patient in no apparent distress. Well developed. AO x 2 to 3, slow to response, occasionally confused HEENT: Normocephalic, Atraumatic. External ears normal. Nasal passages patent without drainage. MMM. Heart: RRR. Resp: LCTA. No respiratory distress, no use of accessory muscles. Abd: Soft, mild epigastric tenderness to palpation, abdomen is nondistended. Extremities: No edema. Skin: No rash or lesions on exposed areas. Urinary Catheter Management: Araujo: Cath Placed During This Visit: yes Urinary Catheter Date of Insertion: 12/16/24 Urinary Catheter Time of Insertion: 13:27 Data 12/16/24 04:46 12/16/24 04:46 Micro: Microbiology 12/15/24 13:53 Urine Culture - Preliminary Urine,Clean Catch Gram Negative Rods A&P Assessment and plan (1) Acute kidney injury: (2) Elevated liver enzymes: Most likely in setting of acute kidney injury. Appreciate CT on pelvis and gallbladder ultrasound negative for acute abnormality. Hepatitis panel negative. Patient denies history of alcohol use. Continue to monitor daily. Does have elevated lipase. Alkaline phosphatase elevated. Gallbladder negative for cholelithiasis. (3) UTI (urinary tract infection): (4) Dehydration: (5) Inflammatory arthritis: (6) Nausea and vomiting: (7) Elevated lipase: Plan 79-year-old female admitted for nausea and vomiting, dehydration, acute kidney injury, and elevated liver enzymes and lipase. Acute kidney injury: Most likely in setting of ATN. Appreciate urinalysis negative for blood and minimal protein. Baseline creatinine seems to be around 1-1.2. Admitted with a creatinine of 5. Worsening to 5.8. Associated with uremia and metabolic acidosis. Does have history of acute kidney injury few years ago which was attributed to medications in the past. Medical reconciliation done for nephrotoxic drugs. Hold off on Lasix and meloxicam for now. CT on pelvis negative for obstructive nephropathy. Repeat urinalysis, urine lites, urine creatinine, urine eosinophil. Araujo catheterization. Monitor BMP daily. Switch from Ringer lactate to D5 NS at 75 cc/h for now as patient is having recurrent hypoglycemia. Started on sodium bicarb oral tablets. Will consult nephrology for further recommendations. Goal blood pressure less than 140/90 mmHg. Hold off on antihypertensive for now. Check A1c. UTI: Appreciate on urinalysis. Follow-up urine culture, blood culture. Continue with IV ceftriaxone for now. Hypoglycemia: Switch to D5 as above. Hypoglycemia protocol. Restart home medication Lyrica at 50 mg twice daily, continue with home dose of carbidopa levodopa. Patient's care discussed in detail with son over the phone. All the questions were answered. Code Status: Full IVF: D5 NS at 75 cc/h DVT PPx: heparin GI PPx: None ABx: Rocephin Diet: Renal nondialysis diet Discharge plan: Home when able PDMP PDMP Reviewed: Not Reviewed Attestations 2 Medical Necessity Statement*: Requested hospitalization for management of acute kidney injury with metabolic acidosis, UTI Diagnoses Acute kidney injury N17.9 Elevated liver enzymes R74.8 Acute cystitis without hematuria N30.00 Urinary tract infection type: acute cystitis Hematuria presence: without hematuria Dehydration E86.0 Inflammatory arthritis M19.90 Bilious vomiting with nausea R11.14 Vomiting type: bilious vomiting Elevated lipase R74.8
[2024-12-16 16:01] VITALS: BP 123/68; PULSE 70; RESP 19; TEMP 36.9; O2SAT 90
[2024-12-16 16:11] LABS: Glucose Point of Care 117 mg/dL (70-110)
[2024-12-16 17:41] LABS: Creatine Phosphokinase 117 U/L (26-192)
[2024-12-16 21:08] VITALS: BP 132/78; PULSE 78; RESP 18; TEMP 36.7; O2SAT 93
[2024-12-16 21:34] LABS: Complement C3 122 mg/dL (90-180)
[2024-12-16 21:35] LABS: Glucose Point of Care 143 mg/dL (70-110)
[2024-12-17] VITALS: BP 132/74; PULSE 76; RESP 17; TEMP 36.7; O2SAT 93
[2024-12-17] MEDS: dextrose 5%-sod chloride 0.45% 1,000 ML 100 ML IV ×2 (03:33→13:43)
[2024-12-17 04:24] VITALS: BP 131/76; PULSE 74; RESP 17; TEMP 36.7; O2SAT 93
[2024-12-17 06:11] LABS: Basophils # 0.1 10^3/uL (0.0-0.1); Basophils % 0.6 %; Eosinophils # 0.2 10^3/uL (0.0-0.8); Eosinophils % 2.4 %; Hematocrit 31.1 % (36-47); Lymphocytes # 3.2 10^3/uL (0.8-4.8); Lymphocytes % 38.7 %; Mean Corpuscular HGB Conc 30.5 g/dL (30-55); Mean Corpuscular Hemoglobin 26.5 pg (27-33); Mean Corpuscular Volume 86.9 fl (85-98); Mean Platelet Volume 12.2 fL (7.4-10.4); Monocytes # 0.7 10^3/uL (0.2-0.9); Monocytes % 7.9 %; Neutrophils # 4.11 10^3/uL (1.8-7.7); Neutrophils % 49.4 %; Nucleated Red Blood Cells % 0 %; Platelet Count 130 10^3/cmm (157-399); Red Blood Count 3.58 10^6/uL (3.85-5.65); Red Cell Distribution Width 17.5 % (12.1-15.1); White Blood Count 8.32 10^3/uL (3.29-11.43)
[2024-12-17 06:30] LABS: Glucose Point of Care 142 mg/dL (70-110)
[2024-12-17 06:35] LABS: Alanine Aminotransferase 15 U/L (0-33); Albumin Level 3.1 g/dL (3.5-5.2); Alkaline Phosphatase 558 U/L (35-105); Anion Gap 19.7 (5-19); Aspartate Amino Transferase 78 U/L (0-32); Blood Urea Nitrogen 69 mg/dL (8-23); Calcium 8.2 mg/dL (8.5-10.5); Carbon Dioxide 21 mmol/L (22-29); Chloride 103 mmol/L (98-107); Globulin 2.7 g/dL (1.3-4.6); Glucose 149 mg/dL (65-115); Osmolality Calculated 313 mOsm/kg (285-295); Potassium 3.7 mmol/L (3.5-5.1); Sodium 140 mmol/L (136-145); Total Bilirubin 1.3 mg/dL (0.15-1.2); Total Protein 5.8 g/dL (6.6-8.7)
[2024-12-17 06:46] LABS: Chol HDL Ratio 4.21 mg/dL (0.0-4.40); Cholesterol 80 mg/dL (0-200); HDL Cholesterol 19 mg/dL (60-100); LDL Cholesterol Calculated 34 mg/dL (50-129); Magnesium 2.3 mg/dL (1.7-2.3); Phosphorus 5.8 mg/dL (2.5-4.5); Triglycerides 136 mg/dL (0-150); VLDL Cholestrol Calculation 27 mg/dL (0-30)
[2024-12-17 06:52] LABS: Folate Level 10.9 ng/mL (4.8-37.3)
[2024-12-17 08:00] VITALS: BP 163/70; PULSE 78; RESP 17; TEMP 36.8; O2SAT 93
[2024-12-17] MEDS: heparin 5,000 unit/mL INJ 1 mL 5000 UNIT SUBCUT ×2 (08:36→20:36)
[2024-12-17] MEDS: pregabalin 25 mg Capsule PO ×2 (08:36→17:29)
[2024-12-17] MEDS: aspirin 81 mg EC Tablet PO (08:36)
[2024-12-17] MEDS: carbidopa-levodopa 25-100mg Tablet 1 EACH PO ×3 (08:36→20:36)
--- NOTE | 2024-12-17 08:45 | PC.NURSE ---
pt educ. on medications scheduled to be administered to her this am. pt asked about her bp meds. educ pt that i did not have any of the meds she requested ordered at this time. educ her that the dr would have to be the 1 to order them, that i would ask that he look at her home meds. she then stated, you all don't know what's going on with my medications, you have them all messed up and i will never get them straightened out when i get home. this nurse asked her if i could give her the heparin shot in her abd. she responded, all you guys want to do is stick and poke on me. educ. her again that heparin helps to prevent blood clots. she then stated, you all are only doing all of this for the money, because i have insurance.
--- NOTE | 2024-12-17 10:08 | P.PN_ITS ---
Subjective 2 Subjective: The patient was seen and examined. The patient wants a Lara catheter out. The patient was to go home. The patient is forgetful at times. Patient states her blood pressure is elevated now she is concerned about it. The patient is concerned that some of her medications were stopped. I discussed with her that she has an acute kidney injury we do not want her blood pressure to go too low and some of her medications may be nephrotoxic at this moment. The patient states that her family is coming today. The patient states that she has questions for me but cannot remember them. Medications: Reviewed: Yes Medication Review Details: Current Medications Hydrocodone Bitart/Acetaminophen (Hydrocodone-Acetaminophen 5-325 Mg Tablet) 1 tab PO Q4H PRN PRN Reason: MODERATE PAIN Amlodipine Besylate (Amlodipine 5 Mg Tablet) 5 mg PO DAILY FERMÍN Aspirin (Aspirin 81 Mg Ec Tablet) 81 mg PO DAILY FERMÍN Last Admin: 12/17/24 08:36 Dose: 81 mg Carbidopa/Levodopa (Carbidopa-Levodopa 25-100mg Tablet) 1 each PO TID FERMÍN Last Admin: 12/17/24 08:36 Dose: 1 each Ceftriaxone Sodium (Ceftriaxone 1,000 Mg Sdv) 1,000 mg IVP Q24H FERMÍN; Protocol Last Admin: 12/16/24 13:42 Dose: 1,000 mg Glucagon (Glucagon 1 Mg/Ml Kit 1 Ml) 1 mg IM ONCE PRN; Protocol PRN Reason: Adult Acute Hypoglycemia Nursing Prot. Heparin Sodium (Porcine) (Heparin 5,000 Unit/Ml Inj 1 Ml) 5,000 unit SUBCUT Q12H FERMÍN Last Admin: 12/17/24 08:36 Dose: 5,000 unit Dextrose/Sodium Chloride (Dextrose 5%-Sod Chloride 0.45%) 1,000 mls @ 100 mls/hr IV .Q10H FERMÍN Last Admin: 12/17/24 03:33 Dose: 100 mls/hr Dextrose (D5w) 500 mls @ 0 mls/hr IV ONCE PRN; Protocol PRN Reason: Adult Acute Hypoglycemia Prot Dextrose (D10w) 125 mls @ 750 mls/hr IV PRN PRN; Protocol PRN Reason: Adult Acute Hypoglycemia Nursing Protocol Dextrose (D10w) 250 mls @ 1,000 mls/hr IV PRN PRN; Protocol PRN Reason: Adult Acute Hypoglycemia Nursing Protocol Lanolin (Lanolin Oint 7 Gm) 1 applic TOPICAL PRN PRN PRN Reason: DRYNESS Last Admin: 12/15/24 20:21 Dose: 1 applic Morphine Sulfate (Morphine 4 Mg/Ml Sdv 1 Ml) 2 mg IVP Q4H PRN PRN Reason: SEVERE PAIN Ondansetron HCl (Ondansetron 2 Mg/Ml Sdv 2 Ml) 4 mg IVP Q6H PRN PRN Reason: NAUSEA AND VOMITING Pregabalin (Pregabalin 25 Mg Capsule) 25 mg PO BID FERMÍN Last Admin: 12/17/24 08:36 Dose: 25 mg Vitals/I&O/Wt Last Vital Signs Temp 98.2 F 12/17/24 08:00 Pulse 78 12/17/24 08:00 Resp 17 12/17/24 08:00 BP 163/70 12/17/24 08:00 Pulse Ox 93 12/17/24 08:00 O2 Del Method Room Air 12/17/24 08:00 12/16/24 12/17/24 12/17/24 22:59 06:59 14:59 Intake Total 1190 / 0094.262 1950 / 2701.667 360 / 360 Output Total 500 / 950 1080 / 2030 Balance 690 / 631.667 40 / 671.667 360 / 360 Weight last 48 hrs Weight 73.482 kg Weight 73.482 kg Weight 73.482 kg Weight 73.482 kg Physical Exam 2 Narrative: Obese lady in bed no apparent distress. Vital signs noted. HEENT normocephalic atraumatic. Neck is supple no JVP. Lungs clear to auscultation. Heart regular positive S1-S2. Abdomen is soft nontender nondistended positive bowel sounds. Extremities +arm edema, no leg edema. Patient has a Lara catheter. Neuro awake alert oriented x 2. moves all extremities. Urinary Catheter Management: Lara: Cath Placed During This Visit: yes Reason for Continuing Indwelling Catheter: Perioperative Use in Selected Surgeries Urinary Catheter Date of Insertion: 12/16/24 Urinary Catheter Time of Insertion: 13:27 Data 12/17/24 05:49 12/17/24 05:49 Micro: Microbiology 12/15/24 13:53 Urine Culture - Final Urine,Clean Catch Escherichia coli A&P Assessment and plan (1) Acute kidney injury: 79-year-old lady obesity hypertension chronic Mobic user, diabetes. Patient has a normal creatinine in June 2024 with a creatinine of 1.0 mg/dL. Patient now presents with UTI and acute kidney injury creatinine of 5 yesterday is gone up to 5.8 mg/dL today. 1. Acute kidney injury no hydronephrosis on CT scan. Urinalysis reviewed from 12/15/24 was dark yellow and turbid specific gravity of 10 092+ protein 1+ bilirubin 3+ leuk esterase 0-2 RBCs, greater than 100 white cells. Bacteria + The patient had a UTI. Agree with antibiotics following up cultures. Acute kidney injury in this lady is likely ATN from furosemide along with Mobic along with UTI with nausea and vomiting. 1 could also be concerned about prerenal azotemia. Her urine sodium is difficult to interpret as the patient was on furosemide. -cr is starting to improve and she is urinating -normal complements though patient does not have significant hematuria. Will check a CPK. Patient has a history of a positive RIZWAN of 1-80 in 2020 unlikely to be a lupus nephritis. However we can repeat RIZWAN [id number] DNA and complements. Would hold Mobic. 2. Patient has developed an increased anion gap metabolic acidosis likely from her acute kidney injury and normal saline. -stop IVF -d/c lara 3. UTI improving. e. coli- lake sensitive 4. Anemia given the fact the patient has acute kidney injury we will also check an SPEP. 5. Blood pressure elevated- start amlodipine 6. Check uric acid on allopurinol. 7. Patient has restless leg syndrome and can have dose her Lyrica or gabapentin and see if this helps her. This was discussed in detail with the patient and with Dr. Coyne. The patient was seen examined using audiovisual equipment with the aid of a nurse. The patient consented to telehealth. Plan See above. PDMP PDMP Reviewed: Not Reviewed Attestations 2 Medical Necessity Statement*: syed, uti Time Spent in Patient Care: 16 - 35 minutes (>than 50% of time sp ent in counselling and/or direct pt care on unit) . Coding Level of Care Code Acute Code for [facility] Diagnoses Acute kidney injury N17.9
--- NOTE | 2024-12-17 10:24 | PC.CHAP ---
Pastoral Care Encounter/Spiritual Assessment Type of Contact [x] Declined dust collector attendant visit [] Patient/Family/Request visit [] Outpatient visit [] Follow-up visit [] Physician referral [] Code/Alert [] Routine visit [] Staff referral [] Actively dying [] Patient sleeping [] Family support [] [] Out of room [] Palliative care [] [] Receiving care in room [] Pre-surgical visit [] Trauma [] Long length of stay [] ICU visit [] Other: Relational/Emotional Strength [] Patient feels connected with others/family/visitors/staff [] Distress [] Loneliness/isolation [] Abandonment Spirituality of Patient [] Person of Shweta [] Attends Taoist of their Shweta [] Believes in Prayer [] Reads Bible or Latter Day materials [] There are Spiritual issues to be addressed Plastics Scientist Interventions [] Prayer [] Active listening [] Non-anxious presence [] Spiritual/emotional support [] Crisis/trauma care [] Spiritual counseling [] Bereavement support [] Provided bereavement packet [] Provided Bible/devotional materials [] Provided toy/stuffed animal, coloring book to patient or family member [] Provided Communion [] Anointing/[place] [] Salvation [] Completed spiritual assessment [] Other: Impact on Illness or Injury [] Angry [] Fearful [] Anxious [] Often cries [] Exhaustion [] Unable to work [] Unable to attend restorationism [] Unable to walk/stand [] Unable to read [] Unable to drive [] Unable to eat/drink [] Unable to sleep [] Unable to be with family [] Patient intubated [] Other: Summary Time spent with patient
[2024-12-17 10:45] LABS: Creatine Phosphokinase 85 U/L (26-192); Uric Acid 6.1 mg/dL (2.4-5.7)
[2024-12-17 11:02] LABS: Glucose Point of Care 159 mg/dL (70-110)
[2024-12-17 11:40] VITALS: BP 169/72; PULSE 70; RESP 17; TEMP 36.3; O2SAT 92
--- NOTE | 2024-12-17 12:03 | P.PN_ITS ---
Subjective 2 Subjective: No acute events overnight. Patient has remained hemodynamically stable and afebrile. Patient continues to have episodes of confusion. Appropriate urine output overnight. Blood pressure slightly elevated today. Wanting to go home. Has agreed to stay for 1 more day while daughter is coming to visit her. Vitals/I&O/Wt Last Vital Signs Temp 97.4 F L 12/17/24 11:40 Pulse 70 12/17/24 11:40 Resp 17 12/17/24 11:40 BP 169/72 12/17/24 11:40 Pulse Ox 92 12/17/24 11:40 O2 Del Method Room Air 12/17/24 11:40 12/16/24 12/17/24 12/17/24 22:59 06:59 14:59 Intake Total 1190 / 3976.516 7014 / 2701.667 360 / 360 Output Total 500 / 950 1080 / 2030 Balance 690 / 631.667 40 / 671.667 360 / 360 Weight last 48 hrs Weight 73.482 kg Weight 73.482 kg Weight 73.482 kg Physical Exam 2 Narrative: General: Cooperative patient in no apparent distress. Well developed. AO x 2 to 3, slow to response, occasionally confused HEENT: Normocephalic, Atraumatic. External ears normal. Nasal passages patent without drainage. MMM. Heart: RRR. Resp: LCTA. No respiratory distress, no use of accessory muscles. Abd: Soft, mild epigastric tenderness to palpation, abdomen is nondistended. Extremities: No edema. Skin: No rash or lesions on exposed areas. Urinary Catheter Management: Araujo: Cath Placed During This Visit: yes Reason for Continuing Indwelling Catheter: Perioperative Use in Selected Surgeries Urinary Catheter Date of Insertion: 12/16/24 Urinary Catheter Time of Insertion: 13:27 Data 12/17/24 05:49 12/17/24 05:49 Micro: Microbiology 12/16/24 12:35 Urine Culture - Preliminary Urine,Clean Catch 12/15/24 13:53 Urine Culture - Final Urine,Clean Catch Escherichia coli A&P Assessment and plan (1) Acute kidney injury: (2) Elevated liver enzymes: Stable. Most likely in setting of acute kidney injury. Appreciate CT on pelvis and gallbladder ultrasound negative for acute abnormality. Hepatitis panel negative. Patient denies history of alcohol use. Continue to monitor daily. Does have elevated lipase. Alkaline phosphatase elevated. Gallbladder negative for cholelithiasis. (3) UTI (urinary tract infection): (4) Dehydration: (5) Inflammatory arthritis: (6) Nausea and vomiting: (7) Elevated lipase: Plan 79-year-old female admitted for nausea and vomiting, dehydration, acute kidney injury, and elevated liver enzymes and lipase. Acute kidney injury: Most likely in setting of ATN. Appreciate urinalysis negative for blood and minimal protein. Baseline creatinine seems to be around 1-1.2. Admitted with a creatinine of 5. Creatinine slight improvement of 5.4. Slight improvement in metabolic acidosis as well. Does have history of acute kidney injury few years ago which was attributed to medications in the past. Appreciate nephrology recommendations. Medical reconciliation done for nephrotoxic drugs. Hold off on Lasix and meloxicam for now. CT on pelvis negative for obstructive nephropathy. Appreciate urinalysis, urine lites, urine creatinine, urine eosinophil. Araujo catheterization. Can plan to DC Araujo catheter in next 24 hours. Monitor BMP daily. Continue with D5 NS at 75 cc/h for now as patient is having recurrent hypoglycemia. Will consult nephrology for further recommendations. Goal blood pressure less than 140/90 mmHg. Blood pressure slightly elevated today. Add amlodipine 5 mg oral daily. A1c 5.6 UTI: Appreciate on urinalysis. Follow-up urine culture, blood culture. Continue with IV ceftriaxone for now. Hypoglycemia: Resolved. Continue with D5W Restart home medication Lyrica at 25 mg twice daily, continue with home dose of carbidopa levodopa. Patient's care discussed in detail with son over the phone. All the questions were answered. Code Status: Full IVF: D5 NS at 75 cc/h DVT PPx: heparin GI PPx: None ABx: Rocephin Diet: Renal nondialysis diet Discharge plan: Home when able PDMP PDMP Reviewed: Not Reviewed Attestations 2 Medical Necessity Statement*: Requires further hospitalization for management of acute kidney failure Diagnoses Acute kidney injury N17.9 Elevated liver enzymes R74.8 Acute cystitis without hematuria N30.00 Urinary tract infection type: acute cystitis Hematuria presence: without hematuria Dehydration E86.0 Inflammatory arthritis M19.90 Bilious vomiting with nausea R11.14 Vomiting type: bilious vomiting Elevated lipase R74.8
[2024-12-17] MEDS: amlodipine 5 mg Tablet PO (13:40)
[2024-12-17] MEDS: cefTRIAXone 1,000 mg SDV 1000 MG IVP (13:41)
[2024-12-17 15:50] VITALS: BP 138/66; PULSE 67; RESP 16; TEMP 36.7; O2SAT 92
[2024-12-17 16:38] LABS: Glucose Point of Care 126 mg/dL (70-110)
[2024-12-17 20:00] VITALS: BP 172/66; PULSE 74; RESP 18; TEMP 36.6; O2SAT 96
[2024-12-17 20:51] LABS: Glucose Point of Care 125 mg/dL (70-110)
[2024-12-18 00:20] VITALS: BP 172/66; PULSE 76; RESP 19; TEMP 36.8; O2SAT 94
[2024-12-18 04:34] VITALS: BP 156/64; PULSE 68; RESP 17; TEMP 36.7; O2SAT 96
[2024-12-18 06:12] LABS: Basophils # 0.1 10^3/uL (0.0-0.1); Basophils % 0.7 %; Eosinophils # 0.2 10^3/uL (0.0-0.8); Eosinophils % 2.3 %; Hematocrit 31.1 % (36-47); Lymphocytes # 3.7 10^3/uL (0.8-4.8); Lymphocytes % 41.5 %; Mean Corpuscular HGB Conc 30.5 g/dL (30-55); Mean Corpuscular Hemoglobin 27.4 pg (27-33); Mean Corpuscular Volume 89.6 fl (85-98); Mean Platelet Volume 11.7 fL (7.4-10.4); Monocytes # 0.6 10^3/uL (0.2-0.9); Monocytes % 6.7 %; Neutrophils # 4.24 10^3/uL (1.8-7.7); Neutrophils % 47.2 %; Nucleated Red Blood Cells % 0 %; Platelet Count 127 10^3/cmm (157-399); Red Blood Count 3.47 10^6/uL (3.85-5.65); White Blood Count 8.97 10^3/uL (3.29-11.43)
[2024-12-18 06:24] LABS: Glucose Point of Care 175 mg/dL (70-110)
[2024-12-18 06:28] LABS: Alanine Aminotransferase 18 U/L (0-33); Albumin Level 2.9 g/dL (3.5-5.2); Alkaline Phosphatase 583 U/L (35-105); Anion Gap 17.4 (5-19); Aspartate Amino Transferase 149 U/L (0-32); Blood Urea Nitrogen 59 mg/dL (8-23); Calcium 8.5 mg/dL (8.5-10.5); Carbon Dioxide 23 mmol/L (22-29); Chloride 104 mmol/L (98-107); Globulin 2.8 g/dL (1.3-4.6); Glucose 170 mg/dL (65-115); Osmolality Calculated 313 mOsm/kg (285-295); Potassium 3.4 mmol/L (3.5-5.1); Sodium 141 mmol/L (136-145); Total Bilirubin 1.1 mg/dL (0.15-1.2); Total Protein 5.7 g/dL (6.6-8.7)
[2024-12-18 07:28] VITALS: BP 172/68; PULSE 69; RESP 16; TEMP 36.7; O2SAT 94
[2024-12-18 07:29] LABS: Anti-Double Strand DNA AB 1 IU/mL
--- NOTE | 2024-12-18 08:42 | P.PN_ITS ---
Subjective 2 Subjective: denies any complaints good UOP and on Room air Medications: Reviewed: Yes Vitals/I&O/Wt Last Vital Signs Temp 98.1 F 12/18/24 07:28 Pulse 69 12/18/24 07:28 Resp 16 12/18/24 07:28 BP 172/68 12/18/24 07:28 Pulse Ox 94 12/18/24 07:28 O2 Del Method Room Air 12/18/24 07:28 12/17/24 12/18/24 12/18/24 22:59 06:59 14:59 Intake Total 560 / 2280 600 / 2880 Output Total 1200 / 2200 Balance 560 / 1280 -600 / 680 Weight last 48 hrs Weight 73.482 kg Weight 73.482 kg Physical Exam 2 Narrative: Patient is awake alert, no acute distress On room air HEENT S1-S2 regular rate and rhythm Lungs clear to auscultation bilaterally Abdomen soft nontender No pedal edema No skin rash Urinary Catheter Management: Araujo: Cath Placed During This Visit: yes Reason for Continuing Indwelling Catheter: Other Urinary Catheter Date of Insertion: 12/16/24 Urinary Catheter Time of Insertion: 13:27 Data 12/18/24 05:29 12/18/24 05:29 Micro: Microbiology 12/16/24 12:35 Urine Culture - Preliminary Urine,Clean Catch 12/15/24 13:53 Urine Culture - Final Urine,Clean Catch Escherichia coli A&P Assessment and plan (1) Acute kidney injury: 79-year-old lady with past medical history of obesity hypertension chronic Mobic user, diabetes. Patient has a normal creatinine in June 2024 with a creatinine of 1.0 mg/dL now presents with UTI and acute kidney injury creatinine of 5 on presentation. 1. Acute kidney injury: Baseline creatinine was 1.0 in June 2024 Etiology of FRANK likely ATN in the setting of sepsis, NSAID use (Mobic), and component of prerenal FRANK due to poor p.o. intake and nausea vomiting. No hydronephrosis on CT scan, UA with 1+ protein and high specific gravity. Currently receiving IV fluids-D5 half-normal saline at 100 cc an hour, creatinine trended down and urine output has picked up. Has positive RIZWAN previously in 2020. , ordered serologies including RIZWAN, double-stranded DNA, SPEP UPEP, ANCA and anti-GBM antibodies. 2. Anion gap metabolic acidosis, improved 3. E. coli UTI, on Rocephin 4. Anemia: Hemoglobin 9.5, check iron studies, SPEP pending 5. Hypertension: On amlodipine,, will add hydralazine @ 50 mg tid 6. History of gout: On allopurinol, 7. Patient has restless leg syndrome , on Lyrica This was discussed in detail with the patient The patient was seen examined using audiovisual equipment with the aid of a nurse. The patient consented to telehealth. Plan See above. PDMP PDMP Reviewed: Not Reviewed Attestations 2 Medical Necessity Statement*: per medicine Coding Level of Care Code Acute Code for [facility] Diagnoses Acute kidney injury N17.9
--- NOTE | 2024-12-18 09:37 | PC.SOCIAL ---
IMM Update Pg. 2 of IMM updated and copy provided at bedside.
[2024-12-18] MEDS: dextrose 5%-sod chloride 0.45% 1,000 ML 100 ML IV ×2 (09:49→21:28)
[2024-12-18] MEDS: heparin 5,000 unit/mL INJ 1 mL 5000 UNIT SUBCUT ×2 (09:58→21:28)
[2024-12-18] MEDS: carbidopa-levodopa 25-100mg Tablet 1 EACH PO ×3 (09:58→21:28)
[2024-12-18] MEDS: pregabalin 25 mg Capsule PO ×2 (09:58→17:29)
[2024-12-18] MEDS: amlodipine 5 mg Tablet PO (09:58)
[2024-12-18] MEDS: aspirin 81 mg EC Tablet PO (09:58)
--- NOTE | 2024-12-18 10:20 | PC.NURSE ---
I rounded on patient to address an IV pump that was alarming d/t fluids needing replaced. I replaced fluids and reset the pump. While I was with her, she was requesting to have lara d/c'd and stated that Dr. Bazan was in around 929 and said she could have it out today. I reviewed orders and didn't see an order, so I called and spoke with Dr. Bazan and he provided verbal order to d/c. I presented back to the room, administered other ordered medications, emptyied lara with return of 550 mL of dark yellow, clear urine, then d/c'd lara per policy. Patient tolerated procedure well. I informed Roberto Sales, primary nurse, [place] CNA, and Mireya Pina, ROMIE of lara d/c.
[2024-12-18 11:53] VITALS: BP 156/68; PULSE 72; RESP 18; TEMP 36.6; O2SAT 95
[2024-12-18 12:00] LABS: Glucose Point of Care 147 mg/dL (70-110)
[2024-12-18 12:14] LABS: PROTEIN, TOTAL 5.3 g/dL (6.1-8.1)
--- NOTE | 2024-12-18 12:50 | P.PN_ITS ---
Subjective 2 Subjective: No acute events overnight. Patient seen with family at bedside. A lot more awake and alert. Denies any nausea, vomiting, headache. Appropriate urine output in last 24 hours. Vitals/I&O/Wt Last Vital Signs Temp 97.8 F 12/18/24 11:53 Pulse 72 12/18/24 11:53 Resp 18 12/18/24 11:53 BP 156/68 12/18/24 11:53 Pulse Ox 95 12/18/24 11:53 O2 Del Method Room Air 12/18/24 11:53 12/17/24 12/18/24 12/18/24 22:59 06:59 14:59 Intake Total 560 / 2280 600 / 2880 960 / 960 Output Total 1200 / 2200 1050 / 1050 Balance 560 / 1280 -600 / 680 -90 / -90 Weight last 48 hrs Weight 73.482 kg Weight 73.482 kg Physical Exam 2 Narrative: General: Cooperative patient in no apparent distress. Well developed. AO x 2 to 3, slow to response, occasionally confused HEENT: Normocephalic, Atraumatic. External ears normal. Nasal passages patent without drainage. MMM. Heart: RRR. Resp: LCTA. No respiratory distress, no use of accessory muscles. Abd: Soft, mild epigastric tenderness to palpation, abdomen is nondistended. Extremities: No edema. Skin: No rash or lesions on exposed areas. Urinary Catheter Management: Araujo: Cath Placed During This Visit: yes, but has since been removed by the nurse Reason for Continuing Indwelling Catheter: Decision to DC Catheter Urinary Catheter Date of Insertion: 12/16/24 Urinary Catheter Time of Insertion: 13:27 Date Urinary Catheter Removed: 12/18/24 Time Urinary Catheter Discontinued: 10:18 Data 12/18/24 05:29 12/18/24 05:29 Micro: Microbiology 12/16/24 12:35 Urine Culture - Final Urine,Clean Catch 12/15/24 13:53 Urine Culture - Final Urine,Clean Catch Escherichia coli A&P Assessment and plan (1) Acute kidney injury: (2) Elevated liver enzymes: Stable. Most likely in setting of acute kidney injury. Appreciate CT on pelvis and gallbladder ultrasound negative for acute abnormality. Hepatitis panel negative. Patient denies history of alcohol use. Continue to monitor daily. Does have elevated lipase. Alkaline phosphatase elevated. Gallbladder negative for cholelithiasis. (3) UTI (urinary tract infection): (4) Dehydration: (5) Inflammatory arthritis: (6) Nausea and vomiting: (7) Elevated lipase: Plan 79-year-old female admitted for nausea and vomiting, dehydration, acute kidney injury, and elevated liver enzymes and lipase. Acute kidney injury: Most likely in setting of ATN. Appreciate urinalysis negative for blood and minimal protein. Baseline creatinine seems to be around 1-1.2. Admitted with a creatinine of 5. Creatinine slight improvement of 5.4. Slight improvement in metabolic acidosis as well. Does have history of acute kidney injury few years ago which was attributed to medications in the past. Appreciate nephrology recommendations. Medical reconciliation done for nephrotoxic drugs. Hold off on Lasix and meloxicam for now. CT on pelvis negative for obstructive nephropathy. Appreciate urinalysis, urine lites, urine creatinine, urine eosinophil. Araujo catheterization. Can plan to DC Araujo catheter in next 24 hours. Monitor BMP daily. Continue with D5 NS at 75 cc/h for now as patient is having recurrent hypoglycemia. Will consult nephrology for further recommendations. Goal blood pressure less than 140/90 mmHg. Blood pressure slightly elevated today. Add amlodipine 5 mg oral daily. A1c 5.6 UTI: Appreciate on urinalysis. Follow-up urine culture, blood culture. Continue with IV ceftriaxone for now. Hypoglycemia: Resolved. Continue with D5W Restart home medication Lyrica at 25 mg twice daily, continue with home dose of carbidopa levodopa. Patient's care discussed in detail with son over the phone. All the questions were answered. Plan for the day: Continue with current IV hydration. Monitor BMP daily. Creatinine trending down to 4.9. Good urine output. Goal blood pressure less than 140/90 mmHg. Blood pressure is getting elevated. Continue with home dose of amlodipine, and hydralazine 50 mg 3 times daily. Continue with pregabalin at current dose given kidney dysfunction. DC Araujo catheter. Code Status: Full IVF: D5 NS at 75 cc/h DVT PPx: heparin GI PPx: None ABx: Rocephin Diet: Renal nondialysis diet Discharge plan: Home when able PDMP PDMP Reviewed: Not Reviewed Attestations 2 Medical Necessity Statement*: Requires further hospitalization for management of renal failure, uncontrolled hypertension while patient requires further hydration and monitoring of renal functions Diagnoses Acute kidney injury N17.9 Elevated liver enzymes R74.8 Acute cystitis without hematuria N30.00 Urinary tract infection type: acute cystitis Hematuria presence: without hematuria Dehydration E86.0 Inflammatory arthritis M19.90 Bilious vomiting with nausea R11.14 Vomiting type: bilious vomiting Elevated lipase R74.8
[2024-12-18 14:20] LABS: KAPPA LIGHT CHAIN, FREE, SERUM 55.5 mg/L (3.3-19.4); KAPPA/LAMBDA LIGHT CHAINS FREE 1.42 (0.26-1.65)
[2024-12-18 15:38] VITALS: BP 169/66; PULSE 68; RESP 17; TEMP 36.8; O2SAT 100
[2024-12-18] MEDS: cefTRIAXone 1,000 mg SDV 1000 MG IVP (15:52)
[2024-12-18] MEDS: hyDRALAzine 50 mg Tablet PO ×2 (15:52→21:28)
[2024-12-18 16:18] LABS: Lyme AB Screen <0.90 index
[2024-12-18 16:42] LABS: Glucose Point of Care 134 mg/dL (70-110)
[2024-12-18 19:45] VITALS: BP 159/66; PULSE 65; RESP 17; TEMP 36.5; O2SAT 96
[2024-12-18 20:47] LABS: Glucose Point of Care 134 mg/dL (70-110)
[2024-12-19] VITALS: BP 169/78; PULSE 64; RESP 16; TEMP 36.9; O2SAT 95
[2024-12-19 04:00] VITALS: BP 147/75; PULSE 70; RESP 17; TEMP 36.9; O2SAT 95
[2024-12-19 06:10] LABS: Basophils # 0.1 10^3/uL (0.0-0.1); Basophils % 0.8 %; Eosinophils # 0.3 10^3/uL (0.0-0.8); Eosinophils % 2.5 %; Hematocrit 33.9 % (36-47); Lymphocytes # 4.6 10^3/uL (0.8-4.8); Lymphocytes % 36.9 %; Mean Corpuscular HGB Conc 30.1 g/dL (30-55); Mean Corpuscular Hemoglobin 27.1 pg (27-33); Mean Corpuscular Volume 89.9 fl (85-98); Mean Platelet Volume 11.8 fL (7.4-10.4); Monocytes # 0.7 10^3/uL (0.2-0.9); Monocytes % 5.4 %; Neutrophils # 6.49 10^3/uL (1.8-7.7); Neutrophils % 52.4 %; Nucleated Red Blood Cells % 0 %; Platelet Count 136 10^3/cmm (157-399); Red Blood Count 3.77 10^6/uL (3.85-5.65); Red Cell Distribution Width 18.3 % (12.1-15.1)
[2024-12-19 06:30] LABS: Glucose Point of Care 100 mg/dL (70-110)
[2024-12-19 06:38] LABS: Alanine Aminotransferase 29 U/L (0-33); Alkaline Phosphatase 585 U/L (35-105); Aspartate Amino Transferase 174 U/L (0-32); Blood Urea Nitrogen 44 mg/dL (8-23); Calcium 8.8 mg/dL (8.5-10.5); Carbon Dioxide 20 mmol/L (22-29); Chloride 107 mmol/L (98-107); Globulin 3.2 g/dL (1.3-4.6); Glucose 92 mg/dL (65-115); Magnesium 1.6 mg/dL (1.7-2.3); Osmolality Calculated 309 mOsm/kg (285-295); Phosphorus 4.3 mg/dL (2.5-4.5); Sodium 144 mmol/L (136-145); Total Protein 6.2 g/dL (6.6-8.7)
[2024-12-19 06:44] LABS: Anion Gap 20.3 (5-19); Potassium 3.3 mmol/L (3.5-5.1)
[2024-12-19 07:27] VITALS: BP 155/75; PULSE 69; RESP 18; TEMP 36.4; O2SAT 96
[2024-12-19] MEDS: aspirin 81 mg EC Tablet PO (07:53)
[2024-12-19] MEDS: carbidopa-levodopa 25-100mg Tablet 1 EACH PO (07:53)
[2024-12-19] MEDS: hyDRALAzine 50 mg Tablet PO (07:54)
[2024-12-19] MEDS: pregabalin 25 mg Capsule PO (07:54)
[2024-12-19] MEDS: amlodipine 5 mg Tablet PO (07:54)
[2024-12-19] MEDS: heparin 5,000 unit/mL INJ 1 mL 5000 UNIT SUBCUT (07:57)
[2024-12-19 08:30] LABS: ALPHA 1 GLOBULIN 0.4 g/dL (0.2-0.3); ALPHA 2 GLOBULIN 0.8 g/dL (0.5-0.9); BETA 1 GLOBULIN 0.4 g/dL (0.4-0.6); BETA 2 GLOBULIN 0.3 g/dL (0.2-0.5); GAMMA GLOBULIN 0.5 g/dL (0.8-1.7)
[2024-12-19] MEDS: loratadine 10 mg Tablet PO (08:51)
--- NOTE | 2024-12-19 08:56 | P.PN_ITS ---
Subjective 2 Subjective: feels better. wants to go home. no n/v/f/c/isbell/d/leg pains Medications: Reviewed: Yes Medication Review Details: Current Medications Hydrocodone Bitart/Acetaminophen (Hydrocodone-Acetaminophen 5-325 Mg Tablet) 1 tab PO Q4H PRN PRN Reason: MODERATE PAIN Amlodipine Besylate (Amlodipine 5 Mg Tablet) [address] [facility] Last Admin: 12/19/24 07:54 Dose: 5 mg Aspirin (Aspirin 81 Mg Ec Tablet) 81 mg PO DAILY FERMÍN Last Admin: 12/19/24 07:53 Dose: 81 mg Carbidopa/Levodopa (Carbidopa-Levodopa 25-100mg Tablet) 1 each PO TID FERMÍN Last Admin: 12/19/24 07:53 Dose: 1 each Ceftriaxone Sodium (Ceftriaxone 1,000 Mg Sdv) 1,[address] [facility]; Protocol Last Admin: 12/18/24 15:52 Dose: 1,000 mg Glucagon (Glucagon 1 Mg/Ml Kit 1 Ml) 1 mg IM ONCE PRN; Protocol PRN Reason: Adult Acute Hypoglycemia Nursing Prot. Heparin Sodium (Porcine) (Heparin 5,000 Unit/Ml Inj 1 Ml) 5,[address] [facility] Last Admin: 12/19/24 07:57 Dose: 5,000 unit Hydralazine HCl (Hydralazine 50 Mg Tablet) [address] [facility] Last Admin: 12/19/24 07:54 Dose: 50 mg Dextrose/Sodium Chloride (Dextrose 5%-Sod Chloride 0.45%) 1,000 mls @ 100 mls/hr IV .Q10H [facility] Last Infusion: 12/19/24 08:04 Dose: 100 mls/hr Dextrose (D5w) 500 mls @ 0 mls/hr IV ONCE PRN; Protocol PRN Reason: Adult Acute Hypoglycemia Prot Dextrose (D10w) 125 mls @ 750 mls/hr IV PRN PRN; Protocol PRN Reason: Adult Acute Hypoglycemia Nursing Protocol Dextrose (D10w) 250 mls @ 1,000 mls/hr IV PRN PRN; Protocol PRN Reason: Adult Acute Hypoglycemia Nursing Protocol Lanolin (Lanolin Oint 7 Gm) 1 applic TOPICAL PRN PRN PRN Reason: DRYNESS Last Admin: 12/15/24 20:21 Dose: 1 applic Loratadine (Loratadine 10 Mg Tablet) 10 mg PO DAILY PRN PRN Reason: ANAPHYLAXIS Last Admin: 12/19/24 08:51 Dose: 10 mg Morphine Sulfate (Morphine 4 Mg/Ml Sdv 1 Ml) 2 mg IVP Q4H PRN PRN Reason: SEVERE PAIN Ondansetron HCl (Ondansetron 2 Mg/Ml Sdv 2 Ml) 4 mg IVP Q6H PRN PRN Reason: NAUSEA AND VOMITING Pregabalin (Pregabalin 25 Mg Capsule) 25 mg PO BID [facility] Last Admin: 12/19/24 07:54 Dose: 25 mg Vitals/I&O/Wt Last Vital Signs Temp 97.5 F L 12/19/24 07:27 Pulse 69 12/19/24 07:27 Resp 18 12/19/24 07:27 BP 155/75 12/19/24 07:27 Pulse Ox 96 12/19/24 07:27 O2 Del Method Room Air 12/19/24 07:27 12/18/24 12/19/24 12/19/24 22:59 06:59 14:59 Intake Total 1720 / 2680 50 / 2730 0 / 0 Balance 1720 / 1630 50 / 1680 0 / 0 Weight last 48 hrs Weight 73.482 kg Weight 73.482 kg Physical Exam 2 Narrative: Obese lady in bed no apparent distress. Vital signs noted. HEENT normocephalic atraumatic. Neck is supple no JVP. Lungs clear to auscultation. Heart regular positive S1-S2. Abdomen is soft nontender nondistended positive bowel sounds. Extremities +arm edema, no leg edema. Patient has a Araujo catheter. Neuro awake alert oriented x 2. moves all extremities. Urinary Catheter Management: Araujo: Cath Placed During This Visit: yes, but has since been removed by the nurse Reason for Continuing Indwelling Catheter: Other Urinary Catheter Date of Insertion: 12/16/24 Urinary Catheter Time of Insertion: 13:27 Date Urinary Catheter Removed: 12/18/24 Time Urinary Catheter Discontinued: 10:18 Data 12/19/24 05:45 12/19/24 05:45 Micro: Microbiology 12/16/24 12:35 Urine Culture - Final Urine,Clean Catch A&P Assessment and plan (1) Acute kidney injury: 79-year-old lady obesity hypertension chronic Mobic user, diabetes. Patient has a normal creatinine in June 2024 with a creatinine of 1.0 mg/dL. Patient now presents with UTI and acute kidney injury creatinine of 5 yesterday is gone up to 5.8 mg/dL today. 1. Acute kidney injury no hydronephrosis on CT scan. Acute kidney injury in this lady is likely ATN from furosemide along with Mobic along with UTI with nausea and vomiting. -renal function is improving -normal complements though patient does not have significant hematuria. normal CPK. Patient has a history of a positive RIZWAN of 1-80 in 2020 unlikely to be a lupus nephritis. -awaiting repeat RIZWAN fyna-pbzejg-wnolsdju DNA and complements. Would hold Mobic. 2. met acidosis improved 3. replace potassium and magnesium 4. UTI improving. e. coli- lake sensitive 5. Anemia given the fact the patient has acute kidney injury we will also check an SPEP. 6. Blood pressure elevated- cont amlodipine and hydralazine 7. Patient has restless leg syndrome and can have dose her Lyrica or gabapentin and see if this helps her. renal okay for d/c and outpt f/u w/ PMD The patient was seen examined using audiovisual equipment with the aid of a nurse. The patient consented to telehealth. Plan See above. PDMP PDMP Reviewed: Not Reviewed Attestations 2 Medical Necessity Statement*: per hospitalist Time Spent in Patient Care: 16 - 35 minutes (>than 50% of time sp ent in counselling and/or direct pt care on unit) . Coding Level of Care Code Acute Code for [facility] Diagnoses Acute kidney injury N17.9
--- NOTE | 2024-12-19 09:29 | P.DS_ITS ---
Discharge Providers Date of Admission: 12/16/24 12:11 Date of Discharge: December 19, 2024 Attending Provider at Admission: Jaison Gold DO Attending Provider at Discharge: Caesar Bazan MD Consults: Telemetry nephrology Primary Care Provider: Biaron Chris DO Diagnoses at Discharge Discharge Diagnosis (1) Acute kidney injury: Status: Acute Reason for Visit Reason for Visit: dehydration, n/v/d Brief History: History as per HPI: Vania Price is a 79 year old female with a past medical history of inflammatory arthritis, type 2 diabetes, PVD, gout, hypertension, high cholesterol, neuropathy, presented to the ER with generalized weakness, nausea and vomiting. Patient tells me that she is being seen by multiple other specialists for concerning findings in her pelvis. She says that she is to see a urologist in the near future. She is unable to tell me what the concerning findings were. She states that she has not been able to eat or drink over the last couple of days, and began having nausea and vomiting for 1 day. She denies any chest pain or shortness of breath. She states she does not have any burning when she pees, but does feel like she has a bowling ball in her pelvis. In the ER she was noted to have a leukocytosis of 12.74. BUN at 48 creatinine 5.0. She had an anion gap of 24.1. Bilirubin elevated at 3.5, with AST of 196 and an alk phos of 525. Lipase was elevated to 177. She does appear to have a UTI with 2+ protein 3+ leuk esterase and greater than [address] of the abdomen and pelvis showed no acute concerns. There was a partially cystic structure in the left adnexa, thought likely the left ovary. She had small bilateral renal cyst. Ultrasound of the gallbladder showed no gallstones or gallbladder wall thickening. She was admitted for ongoing workup. Hospital Course Hospital Course Patient was admitted to the hospital for further evaluation and management of acute renal failure in setting of dehydration, home use of NSAID and Lasix. She was started on aggressive IV hydration. Medical reconciliation was done for nephrotoxic drugs. Nephrology was consulted. Patient responded well to the treatment and creatinine is down to 2.8 on discharge. She has been discharged in stable condition with advised to hold off on [id number] NSAID, stop meloxicam. She is to continue taking her antihypertensive as before. Lasix has been changed to as needed for a weight gain of more than 5 pounds. She is advised to maintain oral hydration with up to 50 to 60 ounces of fluids daily. She is advised to change Lyrica to 75 mg twice daily. She is to see her primary care provider within next 1 week with her blood pressure diary for further adjustment of antihypertensive and a repeat BMP. During hospitalization she was also found to have positive RIZWAN for which she is to follow-up with rheumatology as an outpatient. Physical Exam Narrative: General: Cooperative patient in no apparent distress. Well developed. AO x 2 to 3, slow to response, occasionally confused HEENT: Normocephalic, Atraumatic. External ears normal. Nasal passages patent without drainage. MMM. Heart: RRR. Resp: LCTA. No respiratory distress, no use of accessory muscles. Abd: Soft, mild epigastric tenderness to palpation, abdomen is nondistended. Extremities: No edema. Skin: No rash or lesions on exposed areas. Urinary Catheter Management: Araujo: Cath Placed During This Visit: yes, but has since been removed by the nurse Reason for Continuing Indwelling Catheter: Other Urinary Catheter Date of Insertion: 12/16/24 Urinary Catheter Time of Insertion: 13:27 Date Urinary Catheter Removed: 12/18/24 Time Urinary Catheter Discontinued: 10:18 Discharge Data Studies Completed and Pending Completed Studies During Hospitalization Category Date Time Status CT abdomen pelvis wo con [id number] Stat Cat Scan 12/15/24 11:29 Completed US gall bladder 05649 Stat Ultrasound 12/15/24 11:29 Completed Pending at discharge Category Date Time Status RIZWAN Screen w/ Reflex Routine Lab 12/16/24 16:49 Received ANCA [Anti-Neutrophil Cytoplasmic AB] Routine Lab 12/16/24 16:49 Received Complete Blood Count w/Auto AM LABS Lab 12/20/24 04:00 Ordered Comprehensive Metabolic Panel AM LABS Lab 12/20/24 04:00 Ordered Glomerular Basement AB IGG Routine Lab 12/16/24 16:49 Received Immunofixation Serum Routine Lab 12/16/24 16:49 Received Tick Panel Stat Lab 12/16/24 16:49 Results Radiology Impressions Abdomen/Pelvis CT 12/15/24 11:29 IMPRESSION: No acute findings. COMMENTS: Consistent with the [employer]'s Incidental Findings Committee white paper (J Am Mark Radiol 2018): Any incidental renal lesion less than 1 cm or classified as too small to characterize, or any incidental cystic renal lesion characterized as simple-appearing, is likely benign. No follow-up imaging is recommended for these lesions per consensus recommendations based on imaging criteria. Gallbladder Ultrasound 12/15/24 11:29 IMPRESSION: No acute findings. Laboratory Results WBC 12.40 10^3/uL (3.29-11.43) H 12/19/24 05:45 RBC 3.77 10^6/uL (3.85-5.65) L 12/19/24 05:45 Hgb 10.20 g/dL (11.27-16.99) L 12/19/24 05:45 Hct 33.9 % (36-47) L 12/19/24 05:45 MCV 89.9 fl (85-98) 12/19/24 05:45 MCH 27.1 pg (27-33) 12/19/24 05:45 MCHC 30.1 g/dL (30-55) 12/19/24 05:45 RDW 18.3 % (12.1-15.1) H 12/19/24 05:45 Plt Count 136 10^3/cmm (157-399) L 12/19/24 05:45 MPV 11.8 fL (7.4-10.4) H 12/19/24 05:45 Neut % (Auto) 52.4 % 12/19/24 05:45 Lymph % (Auto) 36.9 % 12/19/24 05:45 [place] % (Auto) 5.4 % 12/19/24 05:45 Eos % (Auto) 2.5 % 12/19/24 05:45 Baso % (Auto) 0.8 % 12/19/24 05:45 Neut # (Auto) 6.49 10^3/uL (1.8-7.7) 12/19/24 05:45 Lymph # (Auto) 4.6 10^3/uL (0.8-4.8) 12/19/24 05:45 [place] # (Auto) 0.7 10^3/uL (0.2-0.9) 12/19/24 05:45 Eos # (Auto) 0.3 10^3/uL (0.0-0.8) 12/19/24 05:45 Baso # (Auto) 0.1 10^3/uL (0.0-0.1) 12/19/24 05:45 Nucleated RBC % (auto) 0 % 12/19/24 05:45 Nucleated RBCs # 0.0 /100WBC 12/19/24 05:45 ESR 19 mm/hr (0-15) H 12/16/24 04:46 Sodium 144 mmol/L (136-145) 12/19/24 05:45 Potassium 3.3 mmol/L (3.5-5.1) L 12/19/24 05:45 Chloride 107 mmol/L (98-107) 12/19/24 05:45 Carbon Dioxide 20 mmol/L (22-29) L 12/19/24 05:45 Anion Gap 20.3 (5-19) H 12/19/24 05:45 BUN 44 mg/dL (8-23) H 12/19/24 05:45 Creatinine 2.8 mg/dL (0.5-0.9) H 12/19/24 05:45 GFR Calculation Not Reportable 12/19/24 05:45 Glucose 92 mg/dL (65-115) 12/19/24 05:45 POC Glucose 100 mg/dL (70-110) 12/19/24 06:15 Estimat Average Glucose 114 12/16/24 04:46 Hemoglobin A1c 5.6 % (4.0-6.0) 12/16/24 04:46 Calculated Osmolality 309 mOsm/kg (285-295) H 12/19/24 05:45 Uric Acid 6.1 mg/dL (2.4-5.7) H 12/17/24 05:49 Calcium 8.8 mg/dL (8.5-10.5) 12/19/24 05:45 Phosphorus 4.3 mg/dL (2.5-4.5) 12/19/24 05:45 Magnesium 1.6 mg/dL (1.7-2.3) L 12/19/24 05:45 Iron 41 ug/dL (37-145) 12/16/24 04:46 TIBC 289 mcg/dl 12/16/24 04:46 % Saturation 14.1 % (20-50) L 12/16/24 04:46 Unsat Iron Binding 248 ug/dL (112-347) 12/16/24 04:46 Total Bilirubin 1.0 mg/dL (0.15-1.2) 12/19/24 05:45 AST 174 U/L (0-32) H 12/19/24 05:45 ALT 29 U/L (0-33) 12/19/24 05:45 Alkaline Phosphatase 585 U/L (35-105) H 12/19/24 05:45 Creatine Kinase 85 U/L (26-192) 12/17/24 05:49 C-Reactive Protein 41.2 mg/L (0.0-4.9) H 12/16/24 04:46 C-Reactive Protein Cancelled 12/16/24 04:46 NT-Pro-B Natriuret Pep 937 pg/mL (0-450) H 12/16/24 04:46 Total Protein 6.2 g/dL (6.6-8.7) L 12/19/24 05:45 Albumin 3.0 g/dL (3.5-5.2) L 12/19/24 05:45 Globulin 3.2 g/dL (1.3-4.6) 12/19/24 05:45 Qvtpg-1-Ydbmyzglc 0.4 g/dL (0.2-0.3) H 12/16/24 16:49 Dwxuc-7-Ekcvljbhx 0.8 g/dL (0.5-0.9) 12/16/24 16:49 Pbdr-2-Klgcsifo 0.4 g/dL (0.4-0.6) 12/16/24 16:49 Sqrm-7-Oncrvplf 0.3 g/dL (0.2-0.5) 12/16/24 16:49 Gamma Globulins 0.5 g/dL (0.8-1.7) L 12/16/24 16:49 Abnorm Protein Band 1 Not Reportable 12/16/24 16:49 Triglycerides 136 mg/dL (0-150) 12/17/24 05:49 Cholesterol 80 mg/dL (0-200) 12/17/24 05:49 LDL Cholesterol, Calc 34 mg/dL (50-129) L 12/17/24 05:49 Total VLDL Cholesterol 27 mg/dL (0-30) 12/17/24 05:49 HDL Cholesterol 19 mg/dL (60-100) L 12/17/24 05:49 LDL/HDL Ratio 1.81 RATIO (0.00-3.22) 12/16/24 04:46 Cholesterol/HDL Ratio 4.21 mg/dL (0.0-4.40) 12/17/24 05:49 Lipase 177 U/L (13-60) H 12/15/24 10:46 Vitamin B12 > 2000 pg/mL (232-1245) H 12/16/24 04:46 Vitamin B12 Cancelled 12/16/24 04:46 Folate 10.9 ng/mL (4.8-37.3) 12/17/24 05:49 Procalcitonin 20.40 ng/mL (0-0.5) H 12/16/24 04:46 Urine Color Dark yellow (Yellow) A 12/16/24 12:35 Urine Appearance Cloudy (CLEAR) A 12/16/24 12:35 Urine pH 5.0 (5-7) 12/16/24 12:35 Ur Specific [place] 1.009 (1.005-1.030) 12/16/24 12:35 Urine Protein Trace (Negative) A 12/16/24 12:35 Urine Glucose (UA) Negative (Normal) 12/16/24 12:35 Urine Ketones Trace (Negative) 12/16/24 12:35 Urine Blood Negative (Negative) 12/16/24 12:35 Urine Nitrate Negative (Negative) 12/16/24 12:35 Urine Bilirubin 1+ (Negative) H 12/16/24 12:35 Urine Urobilinogen 1.0 mg/dL (Negative) 12/16/24 12:35 Ur Leukocyte Esterase 2+ (Negative) A 12/16/24 12:35 Urine RBC 0-2 /hpf (0-2) 12/16/24 12:35 Urine WBC 51-100 /hpf (0-5) H 12/16/24 12:35 Ur Eosinophil Smear Not Reportable 12/16/24 12:35 Ur Squamous Epith Cells 6-10 /hpf (0-5) 12/16/24 12:35 Amorphous Sediment Not Reportable 12/16/24 12:35 Urine Bacteria None seen /hpf (NONE) 12/16/24 12:35 Hyaline Casts 0.81 /lpf 12/16/24 12:35 Urine Eosinophils No eosinophils seen 12/16/24 12:35 Ur Random Microalbumin 9 ug/dL (0-20) 12/16/24 12:35 U Random Total Protein 22 mg/dL 12/16/24 12:35 Ur Random Sodium 54 mmol/L 12/16/24 12:35 Ur Random Potassium 26 mmol/L 12/16/24 12:35 Ur Random Chloride 53 mmol/L 12/16/24 12:35 Urine Creatinine 64 mg/dL (28-217) 12/16/24 12:35 Urine Creatinine 67 mg/dL (28-217) 12/16/24 12:35 Urine Creatinine 67 mg/dL (28-217) 12/16/24 12:35 Microalb/Creat Ratio 134 mg/dL (0-20) H 12/16/24 12:35 U Abnormal Prot Band 2 Not Reportable 12/16/24 16:49 U Abnormal Prot Band 3 Not Reportable 12/16/24 16:49 Pro Electrophoresis Int See note 12/16/24 16:49 Anti-ds DNA IgG Ab 1 IU/mL 12/16/24 16:49 Complement C3 122 mg/dL (90-180) 12/16/24 16:49 Complement C4 23 mg/dL (10-40) 12/16/24 16:49 Free [place] Light Chains 55.5 mg/L (3.3-19.4) H 12/16/24 16:49 Free [place] Light Chain 39.0 mg/L (5.7-26.3) H 12/16/24 16:49 Free [place]/Lambda Ratio 1.42 (0.26-1.65) 12/16/24 16:49 Lyme Ab (Western Blot) <0.90 index 12/16/24 16:49 Hepatitis A IgM Ab Non-reactive (Nonreactive) 12/16/24 04:46 Hep Bs Antigen Non-reactive (Nonreactive) 12/16/24 04:46 Hep Bs Antibody < 3.5 (11.5-1000) L 12/16/24 04:46 Hep B Core Total Ab Non-reactive (Nonreactive) 12/16/24 04:46 Hepatitis C Antibody Non-reactive (Nonreactive) 12/16/24 04:46 Vitals Last Vital Signs Temp 97.5 F L 12/19/24 07:27 Pulse 69 12/19/24 07:27 Resp 18 12/19/24 07:27 BP 155/75 12/19/24 07:27 Pulse Ox 96 12/19/24 07:27 O2 Del Method Room Air 12/19/24 07:27 Discharge Plan Discharge Patient Disposition: Home Condition: Stable Prescriptions: Continued amlodipine 10 mg tablet 10 mg PO DAILY esomeprazole magnesium 40 mg capsule,delayed release(DR/EC) 40 mg PO DAILY carbidopa-levodopa 25-100 mg tablet 1 tab PO TID aspirin [Sherly Low Dose Aspirin] 81 mg Tablet,Delayed Release (Dr/Ec) 81 mg PO DAILY atorvastatin 20 mg tablet 20 mg PO DAILY allopurinol 100 mg tablet 100 mg PO DAILY hydralazine 100 mg tablet 100 mg PO TID Probiotic 10 billion cell Capsule 10,000 mmu cells PO DAILY Changed furosemide 40 mg Tablet 40 mg PO DAILY PRN (Reason: Weight gain of 5 pounds) Qty: 10 0RF pregabalin 75 mg capsule 75 mg PO BID Qty: 2 0RF Discontinued meloxicam 7.5 mg tablet 7.5 mg PO DAILY Discharge Orders: Discharge Order (Routine); Ordered 12/19/24 Ordered By: Caesar Bazan Referrals: Bairon Chris DO [Primary Care Provider, Family Practice] - 12/25/24 8:40 am Howie Madrid MD [Physician, Rheumatology] - 1 month Referral Note: Positive RIZWAN, recurrent FRANK, persistent joint pain Discharge Diet: Cardiac Discharge Activity: Resume usual activity and Increase activity as tolerated Patient Instructions: Urinary Tract Infection in Women (DC), Acute Nausea and Vomiting (DC), Opioid Safety, Patient Portal & Penny Instructions Activity Restrictions/Additional Instructions: Follow-up with your primary care provider within next 1 week for repeat BMP. Please maintain your oral intake with at least 2 L of liquid daily. Check your blood pressure daily at home and maintain a blood pressure diary. Goal blood pressure of less than 140/90 mmHg. Follow-up with your primary care provider with a blood pressure diary further adjustment of antihypertensive. Do not take meloxicam anymore. Pregabalin should not be more than twice daily. Try to avoid Aleve/npwf-qmh-eqjnngt NSAIDs. Discharge Attestations Time Spent in Discharge Care*: greater than 30 min Specific Discharge Activities: educating patient, educating and/or supporting family/caregiver, discussing with pcp/other providers, discussing with supervisor case loading/social workers/dc planners, documenting/other paperwork and evaluating patient/reviewing data Status at Discharge: Cognitive status at discharge: mildly impaired cognition , Behavioral status at discharge: can be uncooperative , Functional status at discharge: independent ambulation , Overall status at discharge: patient is back to baseline Quality Metrics Clinical Quality Measures [ No reported AMI, CVA or VTE this stay] Coding Level of Care Code 14356 Total time (in minutes) for Discharge: 65 Diagnoses Acute kidney injury N17.9
[2024-12-19] MEDS: magnesium sulfate premix 1 GM/100 ML PIGGYBACK IV (10:25)
[2024-12-19] MEDS: potassium chloride ER 20 mEq Tablet 40 MEQ PO (10:26)
[2024-12-19 11:23] LABS: Anti-Nuclear Antibody Pattern Nuclear, Homogeneous; Anti-Nuclear Antibody Screen POSITIVE (NEGATIVE)
--- NOTE | 2024-12-19 11:55 | PC.NURSE ---
Discharge Note Patient discharged to home via private vehicle accompanied by daughter and son. Discharge instructions reviewed with patient and/or commercial representative. Mobile pharmacy medications and/or prescriptions provided. Belongings/home medications returned.
[2024-12-19 11:57] VITALS: BP 155/75; PULSE 69; RESP 18; TEMP 36.4; O2SAT 96
[2024-12-19 14:04] LABS: Glomerular Bsmt Membrane IGG <1.0 AI
[2024-12-20 08:28] LABS: ANCA Screen NEGATIVE (NEGATIVE)
[2024-12-21 15:44] LABS: Immunofixation Serum Normal pattern.
[2024-12-24 18:05] LABS: RMSF IGG NOT DETECTED; RMSF IGM NOT DETECTED
[2024-12-24 18:45] LABS: E. Chaffeensis AB IGG <1:64; E. Chaffeensis AB IGM <1:20
== END 2024-12-19 11:58 | disposition home or self-care (01) | DRG 683 ==
LOC: ER 13:45 → ER IP 14:28 → MEDSURG 15:51
PROVIDERS: Internal Medicine Nephrology; Admitting Provider Family Medicine; Emergency Provider Student in an Organized Health Care Education/Training Program; PCP Electrodiagnostic Medicine; Visit Provider Student in an Organized Health Care Education/Training Program
DX: N17.0 Acute kidney failure with tubular necrosis (principal); E87.20 Acidosis, unspecified; N30.00 Acute cystitis without hematuria; E11.40 Type 2 diabetes mellitus with diabetic neuropathy, unspecified; F32.A Depression, unspecified; E11.51 Type 2 diabetes mellitus with diabetic peripheral angiopathy without gangrene; M10.9 Gout, unspecified; I10 Essential (primary) hypertension; E78.00 Pure hypercholesterolemia, unspecified; G25.81 Restless legs syndrome; K21.9 Gastro-esophageal reflux disease without esophagitis; E86.0 Dehydration; K75.9 Inflammatory liver disease, unspecified; M13.80 Other specified arthritis, unspecified site; E66.9 Obesity, unspecified; E87.8 Other disorders of electrolyte and fluid balance, not elsewhere classified; E11.649 Type 2 diabetes mellitus with hypoglycemia without coma; R74.8 Abnormal levels of other serum enzymes; D64.9 Anemia, unspecified; B96.20 Unspecified Escherichia coli [E. coli] as the cause of diseases classified elsewhere; Z79.899 Other long term (current) drug therapy; Z79.82 Long term (current) use of aspirin; Z88.8 Allergy status to other drugs, medicaments and biological substances; Z68.28 Body mass index [BMI] 28.0-28.9, adult; Z79.1 Long term (current) use of non-steroidal anti-inflammatories (NSAID)
CPT/HCPCS: 36415; 36416; 51702; 74176; 76705; 80053; 80061; 81001; 82044; 82436; 82550; 82570; 82607; 82746; 82962; 83036; 83520; 83540; 83550; 83690; 83735; 83880; 83883; 84100; 84133; 84145; 84155; 84156; 84165; 84300; 84550; 85025; 85651; 85999; 86036; 86038; 86140; 86160; 86225; 86334; 86618; 86666; 86705; 86706; 86709; 86757; 86803; 87077; 87086; 87186; 87340; 96361; 96372; 96374; 97116; 97161; 97530; 99285; G0378; J0696; J1644; J3475; J7030; J7120; J7799; J9999

== ENCOUNTER → 2025-03-03 13:47 | Outpatient (BNVA) | payer MEDICARE, SELFPAY | PROVIDERS: PCP Electrodiagnostic Medicine; Visit Provider Podiatrist Foot & Ankle Surgery | DX: M79.671 Pain in right foot (principal); M79.672 Pain in left foot; M77.42 Metatarsalgia, left foot; M77.41 Metatarsalgia, right foot | CPT/HCPCS: 64455; 99213; J1100; J3301; J9999 ==

== ENCOUNTER 2025-04-08 11:33 | Outpatient (CLI) | payer MEDICARE, SELFPAY | END 2025-04-08 11:34 | disposition home or self-care (01) | LOC: SPT 11:34 | PROVIDERS: PCP Electrodiagnostic Medicine; Visit Provider Podiatrist Foot & Ankle Surgery | DX: Z46.89 Encounter for fitting and adjustment of other specified devices (principal); G57.63 Lesion of plantar nerve, bilateral lower limbs | CPT/HCPCS: 97161 ==

== ENCOUNTER 2025-05-01 13:13 | Outpatient (CLI) | payer MEDICARE, SELFPAY ==
--- NOTE | 2025-05-01 13:22 | MM_ITS ---
WS: [id number] BILATERAL SCREENING DIGITAL TOMOSYNTHESIS MAMMOGRAM WITH CAD HISTORY: SCREENING COMPARISON: 04/25/2024, 04/18/2023, 11/30/2020 Bilateral CC and MLO views with tomosynthesis and synthetic mammography submitted. Computer aided detection analyzed. Breast composition: The breasts are extremely dense, which lowers the sensitivity of mammography. No suspicious masses, microcalcifications or architectural distortion. Very dense fibroglandular tissue. Benign calcifications in each breast. MM/MM [facility] tomosynthesis [id number] IMPRESSION: BI-RADS: 2 - Benign FOLLOW UP: 1 Year Follow-up
== END 2025-05-01 13:14 | disposition home or self-care (01) ==
LOC: RAD 13:14
PROVIDERS: PCP Electrodiagnostic Medicine; Visit Provider Electrodiagnostic Medicine
DX: Z12.31 Encounter for screening mammogram for malignant neoplasm of breast (principal); R92.343 Mammographic extreme density, bilateral breasts; R92.1 Mammographic calcification found on diagnostic imaging of breast
CPT/HCPCS: 77063; 77067

== ENCOUNTER 2025-05-13 12:26 | Emergency (ER) | payer MEDICARE, SELFPAY ==
[2025-05-13 12:23] VITALS: BP 223/100; PULSE 73; RESP 18; TEMP 36.6; O2SAT 97; BMI 28.3
--- NOTE | 2025-05-13 12:27 | W.ED.DIZZY ---
HPI - Dizziness General: Chief Complaint: Dizziness Stated Complaint: Dizzy Time Seen by Provider: 05/13/25 12:27 History of Present Illness: HPI Narrative: 80-year-old female with a history of inflammatory arthritis, depression, type 2 diabetes, peripheral vascular disease, gout, hypertension, restless leg syndrome and neuropathy who presents to the emergency room with dizziness. She says this morning it started with being sort of lightheaded and has developed into a spinning dizziness. She is hypertensive on presentation. No focal motor deficits. No altered mental status. No slurred speech. No fevers. No abdominal pain. She says it has made her nauseous. Related Data Home Medications ?Medication ?Instructions ?Recorded ?Confirmed carbidopa 25 mg-levodopa 100 mg 1 tab PO TID 08/20/19 03/03/25 tablet esomeprazole magnesium 40 mg 40 mg PO DAILY 08/20/19 03/03/25 capsule,delayed release aspirin 81 mg tablet,delayed 81 mg PO DAILY 03/08/20 03/03/25 release (Sherly Low Dose Aspirin) amlodipine 10 mg tablet 10 mg PO DAILY 04/07/20 03/03/25 Lactobacillus acidophilus 10 10,000 mmu cells PO DAILY 12/07/22 03/03/25 billion cell capsule (Probiotic) allopurinol 100 mg tablet 100 mg PO DAILY 12/07/22 03/03/25 atorvastatin 20 mg tablet 20 mg PO DAILY 12/07/22 03/03/25 hydralazine 100 mg tablet 100 mg PO TID 12/07/22 03/03/25 Previous Rx's ?Medication ?Instructions ?Recorded furosemide 40 mg tablet 40 mg PO DAILY PRN Weight gain of 12/19/24 5 pounds #10 tabs pregabalin 75 mg capsule 75 mg PO BID #2 caps 12/19/24 Sole Supports #1 ea 03/03/25 lorazepam 0.5 mg tablet (Ativan) 0.5 mg PO DAILY PRN anxiety #14 05/13/25 tabs meclizine 25 mg tablet 25 mg PO QID PRN dizziness #20 tabs 05/13/25 ondansetron 4 mg disintegrating 4 mg PO Q8H PRN nausea and 05/13/25 tablet vomiting #10 tabs Allergies Allergy/AdvReac Type Severity Reaction Status Date / Time estrogens, conjugated (From Allergy emotional Verified 03/03/25 13:52 Premarin) Review of Systems Narrative: Constitutional symptoms: Negative except as documented in HPI. Skin symptoms: Negative except as documented in HPI. Eye symptoms: Negative except as documented in HPI. ENMT symptoms: Negative except as documented in HPI. Respiratory symptoms: Negative except as documented in HPI. Cardiovascular symptoms: Negative except as documented in HPI. Gastrointestinal symptoms: Negative except as documented in HPI. Genitourinary symptoms: Negative except as documented in HPI. Musculoskeletal symptoms: Negative except as documented in HPI. Neurologic symptoms: Negative except as documented in HPI. Psychiatric symptoms: Negative except as documented in HPI. Endocrine symptoms: Negative except as documented in HPI. PFSH ED PFSH: Medical History (Updated 05/13/25 @ 13:36 by Tania Bobby MD) High risk medication use Inflammatory arthritis Depression Urgency incontinence Polyuria DM2 (diabetes mellitus, type 2) Onychodystrophy PVD (peripheral vascular disease) Gout Cystitis cystica Hypertension High cholesterol Restless leg syndrome Neuropathy Acid reflux Surgical History Hx of colonoscopy Hx of lumpectomy Hx of tonsillectomy History of hysterectomy History of knee surgery History of carpal tunnel surgery Family History Sister Cancer Mother Diabetes Stroke Other CAD (coronary artery disease) Hypertension Rheumatoid arthritis Denies family history of Lupus Psoriatic arthritis Chronic kidney disease (CKD) Social History Smoking and tobacco/nicotine status: never used tobacco/nicotine Alcohol intake: current Alcohol intake frequency: holidays/special occasions only Alcohol type: wine Substance/Drug Use: never Household members: spouse Marital status: Current occupational status: retired Physical Exam Narrative: EXAM NARRATIVE: General: Alert, no acute distress. Skin: Warm, dry. Head: Normocephalic, atraumatic. Neck: Supple, trachea midline. Eye: Extraocular movements are intact. Ears, nose, mouth and throat: mucosa moist. Cardiovascular: Regular, Normal peripheral perfusion. Respiratory: Lungs are clear to auscultation, respirations are non-labored, breath sounds are equal, Symmetrical chest wall expansion. Gastrointestinal: Soft, Nontender, Non distended Musculoskeletal: Normal ROM, no deformity. Neurological: Alert and oriented, No focal neurological deficit observed. Psychiatric: Cooperative, appropriate mood & affect. Course Vital Signs: Vital signs: Vital Signs Temperature 97.8 F 05/13/25 12:23 Pulse Rate 59 L 05/13/25 14:07 Respiratory Rate 16 05/13/25 13:18 Blood Pressure 177/130 05/13/25 14:07 Pulse Oximetry 97 05/13/25 14:07 Oxygen Delivery Me thod Room Air 05/13/25 14:07 MDM - Dizziness Medical Decision Making Medical decision making Patient's reason for coming to the emergency room: Dizziness and hypertension Social determinants: Patient is retired. She lives at home. I reviewed the patient's medical record. 80-year-old female with a history of inflammatory arthritis, depression, type 2 diabetes, peripheral vascular disease, gout, hypertension, restless leg syndrome and neuropathy. Patient was admitted to the hospital back in November with acute kidney injury secondary to nausea vomiting and diarrhea and dehydration. I reviewed the patient's current home meds Patient takes allopurinol for gout. Multiple hypertensive medications. Alternate historians: None Differential diagnosis including but not limited to and based on the above HPI, review of systems and physical exam: for patient with complaint of dizziness: stroke, hypotension, hypertension, infection, vertigo, orthostasis Orders placed to evaluate differential diagnosis based on the above differential, HPI and physical exam EKG: Time 1236. Rate 68. Normal sinus rhythm, nonspecific T wave abnormality, no ectopy, normal ND & QRS intervals, This was reviewed and interpreted by myself the ER physician at 1240 Lab Review: Laboratory results were reviewed and interpreted by myself the emergency room physician. Mild leukocytosis with a white count of 13,000. No anemia. Renal function is improved from previous with a creatinine of 1.2. Urinalysis is negative for infection. CT head: No acute intracranial process. No intracranial hemorrhage, no evidence of infarct. No evidence of acute fracture. This was reviewed and interpreted by myself the emergency room physician. I also reviewed the radiology report. Assessment of risk: Level of risk: Moderate risk patient. Elderly with multiple comorbidities. Hospitalization considerations: No consideration of hospitalization today. Reexamination: Patient remained stable. No increased work of breathing. No altered mental status. No focal motor deficits. Blood pressure has improved some. Symptoms seem to be a bit better. Assessment and plan: Vertigo Hypertension ? Ativan, meclizine, clonidine in the emergency room - Discharged home - Discussed plan with patient. Answered any questions. - Evaluation and treatment of this problem were appropriate in the emergency setting. Lab Data 05/13/25 12:47 05/13/25 12:[address] 05/13/25 12:31 IMPRESSION: 1. No evidence of intracranial hemorrhage or mass effect. 2. No acute intracranial findings. Laboratory Results WBC 13.22 10^3/uL (3.29-11.43) H 05/13/25 12:47 RBC 4.26 10^6/uL (3.85-5.65) 05/13/25 12:47 Hgb 11.70 g/dL (11.27-16.99) 05/13/25 12:47 Hct 37.8 % (36-47) 05/13/25 12:47 MCV 88.7 fl (85-98) 05/13/25 12:47 MCH 27.5 pg (27-33) 05/13/25 12:47 MCHC 31.0 g/dL (30-55) 05/13/25 12:47 RDW 15.6 % (12.1-15.1) H 05/13/25 12:47 Plt Count 209 10^3/cmm (157-399) 05/13/25 12:47 MPV 9.9 fL (7.4-10.4) 05/13/25 12:47 Neut % (Auto) 40.6 % 05/13/25 12:47 Lymph % (Auto) 53.3 % 05/13/25 12:47 [place] % (Auto) 3.6 % 05/13/25 12:47 Eos % (Auto) 1.6 % 05/13/25 12:47 Baso % (Auto) 0.4 % 05/13/25 12:47 Neut # (Auto) 5.38 10^3/uL (1.8-7.7) 05/13/25 12:47 Lymph # (Auto) 7.0 10^3/uL (0.8-4.8) H 05/13/25 12:47 [place] # (Auto) 0.5 10^3/uL (0.2-0.9) 05/13/25 12:47 Eos # (Auto) 0.2 10^3/uL (0.0-0.8) 05/13/25 12:47 Baso # (Auto) 0.1 10^3/uL (0.0-0.1) 05/13/25 12:47 Nucleated RBC % (auto) 0 % 05/13/25 12:47 Nucleated RBCs # 0.0 /100WBC 05/13/25 12:47 PT 12.80 SECONDS (12.1-14.9) 05/13/25 12:47 INR 0.90 (0.8-1.2) 05/13/25 12:47 APTT 30.3 SECONDS (23.9-36.7) 05/13/25 12:47 Sodium 144 mmol/L (136-145) 05/13/25 12:47 Potassium 3.7 mmol/L (3.5-5.1) 05/13/25 12:47 Chloride 109 mmol/L (98-107) H 05/13/25 12:47 Carbon Dioxide 22 mmol/L (22-29) 05/13/25 12:47 Anion Gap 16.7 (5-19) 05/13/25 12:47 BUN 20 mg/dL (8-23) 05/13/25 12:47 Creatinine 1.2 mg/dL (0.5-0.9) H 05/13/25 12:47 GFR Calculation Not Reportable 05/13/25 12:47 Glucose 96 mg/dL (65-115) 05/13/25 12:47 Calculated Osmolality 300 mOsm/kg (285-295) H 05/13/25 12:47 Lactic Acid 0.5 mmol/L (0.5-2.2) 05/13/25 12:47 Calcium 9.1 mg/dL (8.5-10.5) 05/13/25 12:47 Total Bilirubin 0.2 mg/dL (0.15-1.2) 05/13/25 12:47 AST 14 U/L (0-32) 05/13/25 12:47 ALT < 5 U/L (0-33) 05/13/25 12:47 Alkaline Phosphatase 114 U/L (35-105) H 05/13/25 12:47 Troponin T Baseline 11 ng/L (0-10) H 05/13/25 12:47 Total Protein 6.6 g/dL (6.6-8.7) 05/13/25 12:47 Albumin 4.4 g/dL (3.5-5.2) 05/13/25 12:47 Globulin 2.2 g/dL (1.3-4.6) 05/13/25 12:47 Urine Color Yellow (Yellow) 05/13/25 13:42 Urine Appearance Clear (CLEAR) 05/13/25 13:42 Urine pH 7.5 (5-7) 05/13/25 13:42 Ur Specific [place] 1.008 (1.005-1.030) 05/13/25 13:42 Urine Protein 3+ (Negative) A 05/13/25 13:42 Urine Glucose (UA) Negative (Normal) 05/13/25 13:42 Urine Ketones Negative (Negative) 05/13/25 13:42 Urine Blood Negative (Negative) 05/13/25 13:42 Urine Nitrate Negative (Negative) 05/13/25 13:42 Urine Bilirubin Negative (Negative) 05/13/25 13:42 Urine Urobilinogen 0.2 mg/dL (Negative) 05/13/25 13:42 Ur Leukocyte Esterase Negative (Negative) 05/13/25 13:42 Urine RBC 0-2 /hpf (0-2) 05/13/25 13:42 Urine WBC 0-5 /hpf (0-5) 05/13/25 13:42 Ur Squamous Epith Cells 0-5 /hpf (0-5) 05/13/25 13:42 Amorphous Sediment Not Reportable 05/13/25 13:42 Urine Bacteria None seen /hpf (NONE) 05/13/25 13:42 Hyaline Casts 0-4 /lpf H 05/13/25 13:42 All radiology interpretation(s) finalized by discharge Discharge Plan Discharge Patient Disposition: Home Clinical Impression: Vertigo, Hypertension Condition: Stable Prescriptions: New lorazepam [Ativan] 0.5 mg tablet 0.5 mg PO DAILY PRN (Reason: anxiety) Qty: 14 0RF meclizine 25 mg tablet 25 mg PO QID PRN (Reason: dizziness) Qty: 20 0RF ondansetron 4 mg tablet,disintegrating 4 mg PO Q8H PRN (Reason: nausea and vomiting) Qty: 10 0RF No Action amlodipine 10 mg tablet 10 mg PO DAILY esomeprazole magnesium 40 mg capsule,delayed release(DR/EC) 40 mg PO DAILY carbidopa-levodopa 25-100 mg tablet 1 tab PO TID (DME) Sole Supports See Rx Instructions .Route .MEDSUPPLY Qty: 1 0RF Rx Instructions: As directed by Sole Supports aspirin [Sherly Low Dose Aspirin] 81 mg Tablet,Delayed Release (Dr/Ec) 81 mg PO DAILY atorvastatin 20 mg tablet 20 mg PO DAILY allopurinol 100 mg tablet 100 mg PO DAILY hydralazine 100 mg tablet 100 mg PO TID Probiotic 10 billion cell Capsule 10,000 mmu cells PO DAILY furosemide 40 mg Tablet 40 mg PO DAILY PRN (Reason: Weight gain of 5 pounds) Qty: 10 0RF pregabalin 75 mg capsule 75 mg PO BID Qty: 2 0RF Discharge Orders: Discharge ED (Routine); Ordered 05/13/25 Ordered By: Tania Bobby Referrals: Bairon Chris DO [Primary Care Provider, Family Practice] Discharge Diet: Usual diet Discharge Activity: Increase activity as tolerated Patient Instructions: Vertigo (ED), Opioid Safety, Pain Management, Patient Portal & Penny Instructions Activity Restrictions/Additional Instructions: Thank you for choosing [facility] for your healthcare needs today. You have been screened and evaluated and felt safe for discharge. Health conditions do change or evolve sometimes and as such it is important that you follow up with your Primary Doctor to be re checked, 3-5 days is a general good time frame for follow up. You are always welcome to return to the ED for re assessment if your symptoms are worsening or you have new concerns Print Language: Croatian Coding Level of Care Code ED Cad Designer for Shanika Haskins
--- NOTE | 2025-05-13 12:31 | CT_ITS ---
WS: [id number] CT HEAD TECHNIQUE: Noncontrast CT of the head obtained from the skullbase to the vertex. CLINICAL INFORMATION: dizzy COMPARISON: June 2024 DLP: 1024.[address] scans at [facility] use at least one of these dose optimization techniques: automated exposure control; mA and/or kV adjustment per patient size (includes targeted exams where dose is matched to clinical indication); or iterative reconstruction. FINDINGS: No evidence of intracranial hemorrhage or mass effect. Ventricular system and basal cisterns are patent. Moderate small vessel changes with moderate parenchymal volume loss. No extra-axial fluid collections. No evidence of mass or mass effect. Vascular calcification. Tiny chronic lacunar infarct LEFT c erebellum. Tiny chronic lacunar infarcts in the basal ganglia. Paranasal sinuses and mastoid air cells are well aerated. .Normal visualized soft tissues. CT/CT head wo con* [id number] IMPRESSION: 1. No evidence of intracranial hemorrhage or mass effect. 2. No acute intracranial findings.
--- NOTE | 2025-05-13 12:31 | ECG_ITS ---
[facility]: 2025-05-13 Pat Name: Vania Price Department: Room: Gender: Female Spanish Tutor: : 1945 Requested By: Tania Joseph Order Number: [id number] Kinjal MD: Matti Munoz M.D. Measurements Intervals [place] Rate: 68 P: 231 GA: 114 QRS: -31 QRSD: 98 T: 61 QT: 427 QTc: 455 Interpretive Statements SINUS RHYTHM WITH first-degree AV block LEFT AXIS DEVIATION [QRS AXIS < -30] NONSPECIFIC T-WAVE ABNORMALITY Compared to ECG 12/07/2022 14:55:33 Short GA interval now present Left-axis deviation now present Possible ischemia no longer present T-wave abnormality still present Electronically Signed On 05-14-2025 08:51:55 [employer]OND [employer] AND GRADER by Matti Munoz M.D. [email or web address]
[2025-05-13 12:55] LABS: Hematocrit 37.8 % (36-47); Hemoglobin 11.70 g/dL (11.27-16.99); Mean Corpuscular HGB Conc 31.0 g/dL (30-55); Mean Corpuscular Hemoglobin 27.5 pg (27-33); Mean Corpuscular Volume 88.7 fl (85-98); Nucleated Red Blood Cells % 0 %; Platelet Count 209 10^3/cmm (157-399); Red Blood Count 4.26 10^6/uL (3.85-5.65); White Blood Count 13.22 10^3/uL (3.29-11.43)
[2025-05-13 13:09] LABS: INR 0.90 (0.8-1.2); Partial Thromboplastin Time 30.3 SECONDS (23.9-36.7); Prothrombin Time 12.80 SECONDS (12.1-14.9)
[2025-05-13] MEDS: LORazepam 2 mg/mL INJ 1 mL 1 MG IVP (13:17)
[2025-05-13] MEDS: ondansetron 2 mg/ML SDV 2 mL 4 MG IVP (13:17)
[2025-05-13 13:18] VITALS: BP 195/76; PULSE 60; RESP 16; O2SAT 96
[2025-05-13 13:18] LABS: Troponin(5th) Baseline 11 ng/L (0-10)
[2025-05-13 13:20] LABS: Lactic Sepsis W/Reflex 0.5 mmol/L (0.5-2.2)
[2025-05-13 13:21] LABS: Alanine Aminotransferase < 5 U/L (0-33); Albumin Level 4.4 g/dL (3.5-5.2); Alkaline Phosphatase 114 U/L (35-105); Anion Gap 16.7 (5-19); Aspartate Amino Transferase 14 U/L (0-32); Blood Urea Nitrogen 20 mg/dL (8-23); Calcium 9.1 mg/dL (8.5-10.5); Carbon Dioxide 22 mmol/L (22-29); Chloride 109 mmol/L (98-107); Creatinine Clr Calc Pharmacy 34.5043; Globulin 2.2 g/dL (1.3-4.6); Glucose 96 mg/dL (65-115); Osmolality Calculated 300 mOsm/kg (285-295); Potassium 3.7 mmol/L (3.5-5.1); Sodium 144 mmol/L (136-145); Total Protein 6.6 g/dL (6.6-8.7)
[2025-05-13 13:54] LABS: Glucose Urine UA Negative (Normal); Nitrate Urine Negative (Negative); Specific Gravity, Urine 1.008 (1.005-1.030)
[2025-05-13 14:07] VITALS: BP 177/130; PULSE 59; O2SAT 97
== END 2025-05-13 14:49 | disposition home or self-care (01) ==
PROVIDERS: Emergency Provider Emergency Medicine; PCP Electrodiagnostic Medicine
DX: R42 Dizziness and giddiness (principal); I10 Essential (primary) hypertension; Z79.82 Long term (current) use of aspirin; E11.40 Type 2 diabetes mellitus with diabetic neuropathy, unspecified
CPT/HCPCS: 36415; 70450; 80053; 81001; 83605; 84484; 85025; 85610; 85730; 93005; 96374; 96375; 99285; J2060; J2405; J8597; J9999

== ENCOUNTER 2025-05-23 11:43 | Outpatient (CLI) | payer MEDICARE, SELFPAY ==
--- NOTE | 2025-05-23 11:47 | USCV_ITS ---
Vania Price Age: 80 Gender: F : 1945 Exam Date: 05/23/2025 12:15 Ordering Phys: Bairon Chris DO Technologist: NADIA [place]am Location[place] [facility] [place] Indication: heart murmur BP: 128 / 72 HR: 68 Rhythm: Sinus Technical Quality: Adequate MEASUREMENTS (Male / Female) Normal Values 2D ECHO LV Diastolic Diameter PLAX 4.9 cm 4.2 - 5.9 / 3.9 - 5.3 cm IVS Diastolic Thickness 0.9 cm 0.6 - 1.0 / 0.6 - 0.9 cm IVS Systolic Thickness 1.6 cm LVPW Diastolic Thickness 0.9 cm 0.6 - 1.0 / 0.6 - 0.9 cm LVPW Systolic Thickness 2.0 cm LVOT Diameter 2.0 cm LV Ejection Fraction 2D Teich 63.4 % LV Ejection Fraction MOD 4C 56.5 % LV Ejection Fraction MOD 2C 68.7 % LV Ejection Fraction 2C AL 70.8 % LA Diameter 3.4 cm RA Systolic Volume 4C AL 19.7 ml RA Systolic Volume 4C MOD 20.3 ml LA Sys Volume AL 35.8 cm cubed LA Sys Volume Index AL 18.9 cm cubed/m squared Aorta at Sinotubular Diameter 2.1 cm IVC Diameter 1.4 cm M-MODE LA Ao Ratio MM 1.5 AV Cusp Separation MM 1.3 cm DOPPLER AV Peak Velocity 167.0 cm/s LVOT Peak Velocity 67.0 cm/s AV Area Cont Eq vti 1.1 cm squared AV Area Cont Eq pk 1.3 cm squared MV Peak Velocity 134.0 cm/s MV Area PHT 5.2 cm squared Mitral E to A Ratio 0.7 TV Peak Velocity 213.0 cm/s TR Peak Velocity 277.0 cm/s TR Peak Gradient 30.7 mmHg TR Mean Velocity 197.0 cm/s TR Mean Gradient 17.7 mmHg TR Velocity Time Integral 78.7 cm PV Peak Velocity 75.7 cm/s RV Ejection Time 0.3 s FINDINGS Left Ventricle Normal left ventricular size and systolic function, EF 70%.mild left ventricular hypertrophy. No regional wall motion abnormalities. Grade I/IV diastolic dysfunction (abnormal relaxation filling pattern), normal to mildly elevated filling pressures. . Right Ventricle Normal right ventricular size and systolic function. Right Atrium Normal right atrial size. Left Atrium Mildly increased left atrial size. IA Septum Normal interatrial septum. Mitral Valve Mild mitral valve regurgitation. Aortic Valve Thickened aortic valve. Trace aortic valve regurgitation. Tricuspid Valve Trace tricuspid valve regurgitation. Estimated pulmonary artery peak systolic pressure within normal limits Pulmonic Valve Pulmonic valve not well visualized. Pericardium No pericardial effusion. Aorta Minimal scattered plaques in the ascending aorta IVC Normal inferior vena cava. CONCLUSIONS Normal left ventricular size and systolic function, EF 70%.mild left ventricular hypertrophy. No regional wall motion abnormalities. Grade I/IV diastolic dysfunction (abnormal relaxation filling pattern), normal to mildly elevated filling pressures. Mildly increased left atrial size. Mild mitral valve regurgitation. Thickened aortic valve with some features of aortic valve sclerosis. Trace aortic valve regurgitation. Trace tricuspid valve regurgitation. Estimated pulmonary artery peak systolic pressure within normal limits There is no pericardial effusion. There are no intracardiac masses. Compared to the study from 06/20/2019, there may not be a significant change. Dr Matti Munoz MD FACC (Electronically Signed) Final Date: 27 May 2025 07:31 S
== END 2025-05-23 11:44 | disposition home or self-care (01) ==
LOC: RAD 11:44
PROVIDERS: PCP Electrodiagnostic Medicine; Visit Provider Electrodiagnostic Medicine
DX: R01.1 Cardiac murmur, unspecified (principal); I51.7 Cardiomegaly; I51.89 Other ill-defined heart diseases; I34.1 Nonrheumatic mitral (valve) prolapse; I35.1 Nonrheumatic aortic (valve) insufficiency; I35.0 Nonrheumatic aortic (valve) stenosis; I36.1 Nonrheumatic tricuspid (valve) insufficiency
CPT/HCPCS: 93306